=== PATIENT | female | born 1945 | race Caucasian/White ===

== ENCOUNTER 2019-08-26 15:38 | Inpatient (IN) | payer MEDICARE, MEDICAID, SELFPAY ==
--- NOTE | ~2019-08-26 | XR_ITS ---
EXAMINATION: XR chest 1V portable INDICATION: Cough and shortness of breath TECHNIQUE: Portable AP chest at 1559 hours COMPARISON: 04/27/2019 FINDINGS: There is stable cardiomegaly. There are minimal airspace opacities of the lung bases. No pl eural effusion or pneumothorax is identified. Changes of anterior fusion procedure are noted in the c ervical spine. IMPRESSION: 1. Bibasilar airspace opacities, consistent with atelectasis versus pneumonia. 2. Cardiomegaly. Reviewed, dictated and finalized at location A.
--- NOTE | 2019-08-26 15:39 | ED.GENADULT ---
HPI - General Adult General Chief complaint: Shortness of Breath/Dyspnea Stated complaint: difficulty breathing Time Seen by Provider: 08/26/19 15:38 History of Present Illness HPI narrative: Patient is a 73 y/o female complaining of SOB for about 1 week. She states that her SOB is moderate and worsened by activity. She denies any fever, cough or chest pain. She has some leg swelling. Related Data Home Medications Medication Instructions Recorded Confirmed Anoro Ellipta 1 inh INHALATION DAILY 04/27/19 04/27/19 Apriso 0.375 g PO BID 04/27/19 04/27/19 Cholestyramine Light 1 g PO DAILY 04/27/19 04/27/19 Novolog Mix 70-30FlexPen U-100 52 unit SUBCUT 1700 04/27/19 04/27/19 Novolog Mix 70-30FlexPen U-100 84 unit SUBCUT DAILY 04/27/19 04/27/19 Vitamin D2 See Rx Instructions .ROUTE .COMPLEX 04/27/19 04/27/19 Zyrtec 10 mg PO DAILY 04/27/19 04/27/19 acetaminophen 325 mg PO QID PRN 04/27/19 04/27/19 acetaminophen-codeine 1 tablet PO QID PRN 04/27/19 04/27/19 aspirin 81 mg PO DAILY 04/27/19 04/27/19 atorvastatin 40 mg PO DAILY 04/27/19 04/27/19 azathioprine 25 mg PO DAILY 04/27/19 04/27/19 carvedilol 25 mg PO Q12H 04/27/19 04/27/19 clotrimazole-betamethasone 1 applic TOPICAL BID 04/27/19 04/27/19 gabapentin 600 mg PO DAILY 04/27/19 04/27/19 levothyroxine [Synthroid] 50 mcg PO DAILY 04/27/19 04/27/19 losartan 100 mg PO DAILY 04/27/19 04/27/19 montelukast 10 mg PO DAILY 04/27/19 04/27/19 nitroglycerin 0.4 mg SUBLINGUAL Q5-15M PRN 04/27/19 04/27/19 paroxetine HCl 30 mg PO DAILY 04/27/19 04/27/19 perphenazine 2 mg PO HS 04/27/19 04/27/19 pramipexole 0.5 mg PO DAILY 04/27/19 04/27/19 tramadol 50 mg PO TID PRN 04/27/19 04/27/19 Allergies Allergy/AdvReac Type Severity Reaction Status Date / Time NSAIDS (Non-Steroidal Allergy Mild ULCERS Verified 04/27/19 16:28 Anti-Inflamma carbamazepine Allergy Unknown Unknown Verified 04/27/19 16:28 Corticosteroids Allergy Unknown Unknown Verified 04/27/19 16:28 (Glucocorticoids) Review of Systems Constitutional: Constitutional: Denies chills, Denies fever(s), Denies headache(s) and Denies weakness Eyes: Eyes: Denies blurry vision ENT: Denies headache(s) and Denies neck pain Cardiovascular: Cardiovascular: Denies chest pain and Denies dyspnea Respiratory: Respiratory: Denies cough and Reports dyspnea Gastrointestinal: Gastrointestinal: Denies abdominal pain, Denies diarrhea, Denies nausea and Denies vomiting Genitourinary: Genitourinary: Denies hematuria and Denies dysuria Musculoskeletal: Musculoskeletal: Denies back pain and Denies neck pain Neurologic: Denies headache(s) and Denies weakness [facility] Past Medical History Medical History Ankle arthritis Anxiety CAD (coronary artery disease) CHF (congestive heart failure) Colon cancer COPD (chronic obstructive pulmonary disease) Crohn's disease Diabetes Dyslipidemia History of CVA (cerebrovascular accident) Patient stated initially she had left-sided weakness but that has resolved. Hypertension Sleep apnea Surgical History Surgical History H/O heart artery stent X2 History of appendectomy History of back surgery History of cardiac catheterization History of 2 stents History of cholecystectomy History of fusion of cervical spine History of hysterectomy History of left hip replacement History of tubal ligation Family History Family History Mother Obstetrical blood-clot embolism, Father Sudden , cause unknown Sibling Acute myocardial infarction, Onset Age: 60 Social History Social History Social History: The patient lives home alone. Who lives in a senior apartment. She is retired from [employer]. She has 2 children. Her son Haroon English is her power erisa attorney. She
[2019-08-26 15:40] VITALS: BP 158/85; PULSE 64; RESP 18; TEMP 36.9; O2SAT 99
--- NOTE | 2019-08-26 15:46 | ECG_ITS ---
Measurements Intervals [place] Rate: 64 P: DC: 0 QRS: 33 QRSD: 89 T: 81 QT: 443 QTc: 459 Interpretive Statements SINUS OR ECTOPIC ATRIAL RHYTHM ATRIAL PREMATURE COMPLEX CANNOT RULE OUT SEPTAL INFARCT, AGE INDETERMINATE BORDERLINE T WAVE ABNORMALITY- LATERAL LEADS BASELINE ARTIFACT- I, II, III, AVR, AVL, AVF, V1-V6 ABNORMAL ECG Electronically Signed On 08-26-2019 18:36:31 CDT by Julien Brown D.O.
[2019-08-26] MEDS: FUROSEMIDE INJ 40 MG/4 ML VIAL IV PUSH (16:04)
[2019-08-26 16:16] LABS: Basophils Absolute Auto 0.1 K/mm3 (0.0-0.1); Basophils Percent Auto 0.6 % (0.2-1.2); Eosinophils Absolute Auto 0.2 K/mm3 (0-0.3); Eosinophils Percent Auto 1.9 % (0-4.4); Hemoglobin 13.3 g/dL (12.0-15.0); Immature Granulocyte Absolute 0.03 K/mm3 (0.00-0.031); Immature Granulocyte Percent A 0.4 % (0-0.5); Lymphocytes Absolute Auto 3.04 K/mm3 (0.9-3.2); Lymphocytes Percent Auto 36.8 % (18.3-44.2); Mean Corpuscular HGB Conc 32.4 g/dl (32-36); Mean Corpuscular Hemoglobin 32.3 pg (26-34); Mean Corpuscular Volume 99.5 fl (80-100); Mean Platelet Volume 8.9 fl (7.4-10.4); Monocytes Absolute Auto 0.9 K/mm3 (0.1-0.6); Monocytes Percent Auto 10.5 % (2.6-8.5); Neutrophils Absolute Auto 4.1 K/mm3 (1.3-6.7); Neutrophils Percent Auto 49.8 % (45.5-73.1); Platelet Count Result 194 k/mm3 (150-375); Red Blood Count 4.12 M/mm3 (4.2-5.4); Red Cell Distribution Width 12.9 % (11.5-14.5); White Blood Count 8.3 K/mm3 (4.5-10.0)
[2019-08-26 16:29] LABS: Alanine Aminotransferase 14 U/L (4-35); Albumin Level 3.8 g/dL (3.5-5.1); Alkaline Phosphatase 96 U/L (38-126); Aspartate Amino Transferase 26 U/L (14-36); Bilirubin,Total 0.4 mg/dL (0.2-1.3); Blood Urea Nitrogen 15 mg/dL (7-17); Calcium 8.9 mg/dL (8.4-10.2); Carbon Dioxide 34 mmol/L (22-30); Chloride 94 mmol/L (98-107); Estimated CRCL calculation 76 ml/min; Estimated Glomerular Filt Rate > 60; Glucose 126 mg/dL (65-105); Potassium 4.4 mmol/L (3.4-5.0); Sodium 135 mmol/L (137-145)
[2019-08-26 16:42] LABS: NT Pro B Type Natriuretic Pept 114 PG/ML (5-100); Troponin I < 0.012 ng/mL (0.000-0.034)
--- NOTE | 2019-08-26 17:50 | PC.NURSE ---
Called lab to add on d-dimer at [phone].
[2019-08-26 17:57] VITALS: BP 107/64; PULSE 69; RESP 18; O2SAT 96
[2019-08-26 18:04] LABS: D Dimer 0.39 ug/mL (<0.48)
[2019-08-26 23:04] VITALS: BP 165/91; PULSE 86; RESP 25; O2SAT 93
--- NOTE | 2019-08-26 23:24 | PC.NURSE ---
Report given to HERBERT Antonio at [phone], states he'll call back once room is cleaned.
[2019-08-27] VITALS (8 sets, daily range): BP systolic 126–150; BP diastolic 47–71; PULSE 68–95; RESP 18–28; TEMP 36.4–36.6; O2SAT 90–93; BMI 42.3
--- NOTE | 2019-08-27 00:30 | ADMGEN ---
This patient, Tom Rogers, was admitted to [facility] Surg Room 324-02. Patient/family oriented to hospital policies and general routines including ID bracelet, bed and alarms, visiting hours, pain management, procedures, bathroom and other care routines, personal items, smoking policy, room service/diet, and visiting hours. Valuables list has been completed. Information on how to activate the Rapid Response Team has been discussed. Patient/Family are encouraged to report perceived risks to care and to ask questions if they do not understand what they are told or what they should do.
--- NOTE | 2019-08-27 08:30 | PM.IMHP ---
H&P: HPI History of Present Illness Chief complaint: Increased shortness of breath Narrative: Tom Rogers is a 73 year old female with a past medical history of COPD, diastolic CHF, insulin-dependent diabetes mellitus who presented to the ER for 1 month of shortness of breath but that has become significantly worse over the last week. The patient reports that she has gained 5 lb this week and a total of 10 lb this month. She weighs herself every day. She states that her legs do not usually swell but her abdomen usually swells. She thinks her abdomen is more swollen than usual but denies her clothes being tighter than usual. She reports that she has been sleeping more for the last 3 weeks. She has been sleeping up to 18 hours at a time. She admits that her CPAP mask is about 3 weeks past time for change. She denies any cough. Her nose sounds congested. But she denies any nasal congestion she does have chronic rhinorrhea. She denies any cough, fevers or chills. She denies any ill contacts but does live at an assisted living facility. She denies any orthopnea or paroxysmal nocturnal dyspnea. Her dyspnea is worse with activity. She denies any chest pain or palpitations. She has chronic almost continuous urinary incontinence. She also reports overall rash in her right groin which for which she uses clotrimazole-betamethasone cream. That she also has a rash under her right breast that does not bother her as much as the groin rash. Review of Systems Review of Systems: Narrative: 12 systems were reviewed with pertinent positives and negatives per HPI. Except as documented in the HPI, all other systems were reviewed and are negative. [facility] Past Medical History Medical History (Updated 08/27/19 @ 09:26 by Olimpia Nichols DO) Ankle arthritis Anxiety Bipolar disorder CAD (coronary artery disease) CHF (congestive heart failure) Colon cancer COPD (chronic obstructive pulmonary disease) PFTs January 2018 demonstrating severe obstructive ventilatory defect without acute bronchodilator response mildly decreased DLCO Crohn's disease Diabetes On long-term insulin therapy of last A1c 8.07 April 2019 Diabetic peripheral neuropathy Dyslipidemia Essential hypertension History of CVA (cerebrovascular accident) 2016 patient stated initially she had left-sided weakness but that has resolved. Sleep apnea On CPAP Urinary incontinence, mixed Surgical History Surgical History (Updated 08/27/19 @ 09:24 by Olimpia Nichols DO) H/O heart artery stent X2 History of appendectomy History of back surgery History of bilateral carpal tunnel release History of bilateral cataract extraction History of bladder suspension procedure And bladder stimulator History of bowel resection Due to colon cancer 2012 History of cardiac catheterization History of 2 stents July 2016 History of cholecystectomy History of fusion of cervical spine Anterior cervical diskectomy and fusion History of hysterectomy History of left hip replacement 2009 History of tubal ligation Family History Family History (Updated 08/27/19 @ 08:47 by Olimpia Nichols DO) Mother Acute myocardial infarction Pulmonary embolism Father Acute myocardial infarction Diabetes mellitus Sibling Acute myocardial infarction, Onset Age: 60 Social History Social History (Updated 08/27/19 @ 09:06 by Olimpia Nichols DO) Social History: The patient lives at [facility]. She is retired from [employer]. She has 2 children. Her son Haroon English is her power traveling plant operator. She desires to be a full code. Primary care physician: Dr. Fraire Code status: Full code [facility] power of traveling plant operator: Fabrizio Amador Smoking packs per day: 2 Smoking cigarettes per day: 40.0 Years smoked: 45 Smoking pack-years: 90.00 Smoking status: Former smoker Tobacco type: cigarettes Alcohol intake: former Alcohol
[2019-08-27] MEDS: ASPIRIN 81 MG CHEWABLE TABLET PO (09:36)
[2019-08-27] MEDS: LEVOTHYROXINE SODIUM 50 MCG TABLET PO (09:36)
[2019-08-27] MEDS: FUROSEMIDE INJ 40 MG/4 ML VIAL IV PUSH (09:36)
[2019-08-27] MEDS: ATORVASTATIN 40 MG TABLET PO (09:37)
[2019-08-27] MEDS: GABAPENTIN 300 MG CAPSULE 600 MG PO (09:37)
[2019-08-27] MEDS: carvediloL 25 MG TABLET PO ×2 (09:37→20:56)
[2019-08-27] MEDS: LORATADINE 10 MG TABLET PO (09:37)
[2019-08-27] MEDS: MONTELUKAST SODIUM 10 MG TABLET PO (09:38)
[2019-08-27] MEDS: PRAMIPEXOLE 0.5 MG TABLET PO (09:38)
[2019-08-27] MEDS: LOSARTAN POTASSIUM 100 MG TABLET PO (09:38)
[2019-08-27] MEDS: PAROXETINE 10 MG TABLET 30 MG PO (09:38)
[2019-08-27 11:25] LABS: Glucose Point of Care 227 (65-105)
[2019-08-27] MEDS: CHOLESTYRAMINE LIGHT 4 GM POWD.PACK 1 GM PO (11:40)
[2019-08-27] MEDS: TOLNAFTATE 1% POWDER 45 GM BTL 1 APPLIC TOPICAL ×2 (11:40→20:57)
[2019-08-27] MEDS: ENOXAPARIN 40 MG/0.4 ML SYRINGE SUB-Q (11:40)
[2019-08-27] MEDS: ALBUTEROL SULFATE (*SP) AEROSOL 1 PUFF 6 PUFF INHALATION ×3 (12:03→20:49)
--- NOTE | 2019-08-27 12:31 | P.PNIM_ITS ---
Progress Note: A&P Assessment and Plan (1) Dyspnea: Qualifiers: Dyspnea type: shortness of breath Qualified Code(s): R06.02 - Shortness of breath Code(s): R06.00 - Dyspnea, unspecified Status: Acute Assessment and Plan: Multifactorial dyspnea given patients history of CHF, COPD, and MURPHY. SOB incr eases with exertion. CHF exacerbation is less likely given the patient's BNP is 114. However patient does claim to have gained 5 lb in last week and 10 lb this month. Additionally, physical deconditioning may play a role as patient spends most time in her wheelchair. * Continue IV Lasix * Continue albuterol inhaler scheduled Q4H. Will continue patient's home COPD medications. * Patient is lying completely supine. I encouraged her to sit up and elevate head of bed. * Administer oxygen prn with goal saturation 90% or above. (2) Sleep apnea: Qualifiers: Sleep apnea type: obstructive Qualified Code(s): G47.33 - Obstructive sleep apnea (adult) (pediatric) Code(s): G47.30 - Sleep apnea, unspecified Status: Chronic Assessment and Plan: The patient's CPAP has not been titrated since 2007. Given increased fatigue, this may be the biggest component causing her dyspnea. This may also be causing some increased strain on her heart. The patient's last sleep study was in 2007 at which time she needed CPAP with 12 cm of water. * Hold CPAP pending COVID test given aerosolization. * Pending negative COVID test, she will need to have CPAP mask fitted and titrated. * Respiratory therapy consult will be placed pending results. * Patient may benefit from repeat outpatient sleep study given duration of time and increased symptoms. (3) CHF (congestive heart failure): Code(s): I50.9 - Heart failure, unspecified Status: Chronic Assessment and Plan: Patient has history of CHF but does not appear to be in acute exacerbation given minor BNP elevation at 114. She is not edematous on exam. * Monitor daily weights * Continue IV Lasix * Continue low sodium diet (4) Hypertension: Code(s): I10 - Essential (primary) hypertension Status: Chronic Assessment and Plan: Blood pressure evaluated today and stable at 147/47. * Continue home carvedilol and losartan * Continue to monitor (5) Diabetes: Code(s): E11.9 - Type 2 diabetes mellitus without complications Status: Chronic Assessment and Plan: Blood sugar evaluated today and stable at 126. * Begin accu-checks, SSI, and hypoglycemia protocol * Obtain updated A1c * Continue to monitor blood glucose (6) Suspected COVID-19 virus infection: Code(s): R68.89 - Other general symptoms and signs Status: Acute Assessment and Plan: CXR reveals bibasilar airspace opacities. Given shortness of breath and cough, patient was tested for COVID-19 in the ED. She has been afebrile. WBC 8.3. * Continue isolation precautions * Await results of COVID-19 test. * Continue albuterol MDI. Avoid nebulizers and aerosolization. * Oxygen prn with goal O2 saturation 90% or above * Acetaminophen prn fever * Trend acute phase reactants * Will hold antibiotics in the interim given low suspicion of bacterial respiratory infection. (7) Maceration of skin: Code(s): L98.8 - Other specified disorders of the skin and subcutaneous tissue Status: Acute Assessment and Plan: Patient has severe maceration and erythema between folds of panniculus. * Wou
--- NOTE | 2019-08-27 12:31 | PM.IMPN ---
Progress Note: A&P Assessment and Plan (1) Dyspnea: Qualifiers: Dyspnea type: shortness of breath Qualified Code(s): R06.02 - Shortness of breath Code(s): R06.00 - Dyspnea, unspecified Status: Acute Assessment and Plan: Multifactorial dyspnea given patients history of CHF, COPD, and MURPHY. SOB increases with exertion. CHF exacerbation is less likely given the patient's BNP is 114. However patient does claim to have gained 5 lb in last week and 10 lb this month. Additionally, physical deconditioning may play a role as patient spends most time in her wheelchair. Continue IV Lasix Continue albuterol inhaler scheduled Q4H. Will continue patient's home COPD medications. Patient is lying completely supine. I encouraged her to sit up and elevate head of bed. Administer oxygen prn with goal saturation 90% or above. (2) Sleep apnea: Qualifiers: Sleep apnea type: obstructive Qualified Code(s): G47.33 - Obstructive sleep apnea (adult) (pediatric) Code(s): G47.30 - Sleep apnea, unspecified Status: Chronic Assessment and Plan: The patient's CPAP has not been titrated since 2007. Given increased fatigue, this may be the biggest component causing her dyspnea. This may also be causing some increased strain on her heart. The patient's last sleep study was in 2007 at which time she needed CPAP with 12 cm of water. Hold CPAP pending COVID test given aerosolization. Pending negative COVID test, she will need to have CPAP mask fitted and titrated. Respiratory therapy consult will be placed pending results. Patient may benefit from repeat outpatient sleep study given duration of time and increased symptoms. (3) CHF (congestive heart failure): Code(s): I50.9 - Heart failure, unspecified Status: Chronic Assessment and Plan: Patient has history of CHF but does not appear to be in acute exacerbation given minor BNP elevation at 114. She is not edematous on exam. Monitor daily weights Continue IV Lasix Continue low sodium diet (4) Hypertension: Code(s): I10 - Essential (primary) hypertension Status: Chronic Assessment and Plan: Blood pressure evaluated today and stable at 147/47. Continue home carvedilol and losartan Continue to monitor (5) Diabetes: Code(s): E11.9 - Type 2 diabetes mellitus without complications Status: Chronic Assessment and Plan: Blood sugar evaluated today and stable at 126. Begin accu-checks, SSI, and hypoglycemia protocol Obtain updated A1c Continue to monitor blood glucose (6) Suspected COVID-19 virus infection: Code(s): R68.89 - Other general symptoms and signs Status: Acute Assessment and Plan: CXR reveals bibasilar airspace opacities. Given shortness of breath and cough, patient was tested for COVID-19 in the ED. She has been afebrile. WBC 8.3. Continue isolation precautions Await results of COVID-19 test. Continue albuterol MDI. Avoid nebulizers and aerosolization. Oxygen prn with goal O2 saturation 90% or above Acetaminophen prn fever Trend acute phase reactants Will hold antibiotics in the interim given low suspicion of bacterial respiratory infection. (7) Maceration of skin: Code(s): L98.8 - Other specified disorders of the skin and subcutaneous tissue Status: Acute Assessment and Plan: Patient has severe maceration and erythema between folds of panniculus. Wound care consult obtained Continue antifungal creams Moisture wicking recommended (8) Nasal congestion: Code(s): R09.81 - Nasal congestion Status: Acute Assessment and Plan: Continue loratidine [place] nasal spray prn Subjective Date/time seen: 08/27/19 12:31 Interval history: Date of service: 08/27/19 Ms. Rogers is seen today and reports she is feeling short of breath. She notes that turning or m
[2019-08-27 13:38] LABS: Glucose Point of Care 67 (65-105)
[2019-08-27 15:10] LABS: SARS-CoV-2 RNA PCR Negative
[2019-08-27 15:53] LABS: Glucose Point of Care 100 (65-105)
[2019-08-27 18:02] LABS: Glucose Point of Care 101 (65-105)
[2019-08-27] MEDS: PERPHENAZINE 2 MG TABLET PO (20:56)
[2019-08-27] MEDS: FAMOTIDINE 20 MG/2 ML VIAL IV PUSH (20:57)
[2019-08-27 22:34] LABS: Glucose Point of Care 158 (65-105)
[2019-08-28] VITALS (8 sets, daily range): BP systolic 96–142; BP diastolic 40–56; PULSE 58–77; RESP 16–22; TEMP 36.4–36.6; O2SAT 90–94
[2019-08-28] MEDS: LEVOTHYROXINE SODIUM 50 MCG TABLET PO (06:45)
[2019-08-28 06:53] LABS: Basophils Absolute Auto 0.1 K/mm3 (0.0-0.1); Basophils Percent Auto 0.6 % (0.2-1.2); Eosinophils Absolute Auto 0.3 K/mm3 (0-0.3); Eosinophils Percent Auto 3.5 % (0-4.4); Hematocrit 42.9 % (37.0-47.0); Hemoglobin 14.1 g/dL (12.0-15.0); Immature Granulocyte Absolute 0.03 K/mm3 (0.00-0.031); Immature Granulocyte Percent A 0.4 % (0-0.5); Immature Platelet Fraction Pct 3.2 % (0.9-11.2); Lymphocytes Absolute Auto 2.65 K/mm3 (0.9-3.2); Lymphocytes Percent Auto 32.3 % (18.3-44.2); Mean Corpuscular HGB Conc 32.9 g/dl (32-36); Mean Corpuscular Hemoglobin 32.3 pg (26-34); Mean Corpuscular Volume 98.4 fl (80-100); Mean Platelet Volume 9.2 fl (7.4-10.4); Monocytes Percent Auto 11.6 % (2.6-8.5); Neutrophils Absolute Auto 4.2 K/mm3 (1.3-6.7); Neutrophils Percent Auto 51.6 % (45.5-73.1); Platelet Count Result 202 k/mm3 (150-375); Red Blood Count 4.36 M/mm3 (4.2-5.4); White Blood Count 8.2 K/mm3 (4.5-10.0)
[2019-08-28 06:55] LABS: Hemoglobin A1C 7.2 % (<5.7)
[2019-08-28 07:04] LABS: Alanine Aminotransferase 13 U/L (4-35); Albumin Level 3.7 g/dL (3.5-5.1); Alkaline Phosphatase 97 U/L (38-126); Aspartate Amino Transferase 23 U/L (14-36); Bilirubin,Total 0.9 mg/dL (0.2-1.3); Blood Urea Nitrogen 17 mg/dL (7-17); CRP 2.6 mg/dL (<1.0); Calcium 8.6 mg/dL (8.4-10.2); Carbon Dioxide 35 mmol/L (22-30); Chloride 93 mmol/L (98-107); Creatine Kinase 43 U/L (30-135); Estimated CRCL calculation 53 ml/min; Estimated Glomerular Filt Rate 49; Glucose 152 mg/dL (65-105); Lactate Dehydrogenase 286 U/L (313-618); Potassium 3.6 mmol/L (3.4-5.0); Sodium 132 mmol/L (137-145)
[2019-08-28 08:44] LABS: Glucose Point of Care 186 (65-105)
[2019-08-28] MEDS: CHOLESTYRAMINE LIGHT 4 GM POWD.PACK 1 GM PO (08:47)
[2019-08-28] MEDS: FUROSEMIDE INJ 40 MG/4 ML VIAL IV PUSH (08:47)
[2019-08-28] MEDS: PRAMIPEXOLE 0.5 MG TABLET PO (08:47)
[2019-08-28] MEDS: GABAPENTIN 300 MG CAPSULE 600 MG PO (08:47)
[2019-08-28] MEDS: ENOXAPARIN 40 MG/0.4 ML SYRINGE SUB-Q (08:47)
[2019-08-28] MEDS: FAMOTIDINE 20 MG/2 ML VIAL IV PUSH ×2 (08:47→20:22)
[2019-08-28] MEDS: carvediloL 25 MG TABLET PO ×2 (08:48→20:14)
[2019-08-28] MEDS: PAROXETINE 10 MG TABLET 30 MG PO (08:48)
[2019-08-28] MEDS: LOSARTAN POTASSIUM 100 MG TABLET PO (08:48)
[2019-08-28] MEDS: ATORVASTATIN 40 MG TABLET PO (08:48)
[2019-08-28] MEDS: MONTELUKAST SODIUM 10 MG TABLET PO (08:48)
[2019-08-28] MEDS: ASPIRIN 81 MG CHEWABLE TABLET PO (08:48)
[2019-08-28] MEDS: LORATADINE 10 MG TABLET PO (08:49)
[2019-08-28] MEDS: TOLNAFTATE 1% POWDER 45 GM BTL 1 APPLIC TOPICAL ×2 (08:49→20:22)
[2019-08-28] MEDS: ALBUTEROL SULFATE (*SP) AEROSOL 1 PUFF 6 PUFF INHALATION ×4 (08:52→20:44)
[2019-08-28 12:16] LABS: Glucose Point of Care 236 (65-105)
[2019-08-28] MEDS: INSULIN ASPART (*BKC) 100 UNITS/ML SUB-Q (12:20)
--- NOTE | 2019-08-28 16:16 | PM.IMPN ---
Progress Note: A&P Assessment and Plan (1) Dyspnea: Qualifiers: Dyspnea type: shortness of breath Qualified Code(s): R06.02 - Shortness of breath Code(s): R06.00 - Dyspnea, unspecified Status: Acute Assessment and Plan: Likely multifactorial dyspnea given patients history of CHF, COPD, MURPHY, or possible pneumonia given CXR with possible atelectasis vs pneumonia. CHF exacerbation is less likely given the patient's BNP is 114. However patient does claim to have gained 5 lb in last week and 10 lb this month. Additionally, physical deconditioning may play a role as patient spends most time in her wheelchair. Slight wheezing on exam. BC negative to date. COVID testing negative. afebrile since admission. VSS Patient is lying completely supine again today I encouraged her to sit up and elevate head of bed. One dose of Rocephin given, but discontinued as pneumonia is felt to be unlikely; will due ur antigens today Switch to PO Lasix Continue albuterol inhaler scheduled Q4H. Will continue patient's home COPD medications. Administer oxygen prn with goal saturation 90% or above. (2) Sleep apnea: Qualifiers: Sleep apnea type: obstructive Qualified Code(s): G47.33 - Obstructive sleep apnea (adult) (pediatric) Code(s): G47.30 - Sleep apnea, unspecified Status: Chronic Assessment and Plan: The patient's CPAP has not been titrated since 2007. Given increased fatigue, this may be the biggest component causing her dyspnea. This may also be causing some increased strain on her heart. The patient's last sleep study was in 2007 at which time she needed CPAP with 12 cm of water. Will start CPAP as COVID test negative Respiratory therapy placed for titration Patient may benefit from repeat outpatient sleep study given duration of time and increased symptoms. (3) CHF (congestive heart failure): Code(s): I50.9 - Heart failure, unspecified Status: Chronic Assessment and Plan: Patient has history of CHF but does not appear to be in acute exacerbation given minor BNP elevation at 114. She is not edematous on exam. Monitor daily weights Switch to PO Lasix Continue low sodium/diabetic diet (4) Hypertension: Code(s): I10 - Essential (primary) hypertension Status: Chronic Assessment and Plan: Blood pressure evaluated today and stable at 140s sys Continue home carvedilol and losartan Continue to monitor (5) Diabetes: Code(s): E11.9 - Type 2 diabetes mellitus without complications Status: Chronic Assessment and Plan: Blood sugar today in mid 100s-low 200s. A1c 7.2 Continue accu-checks, SSI, and hypoglycemia protocol Diabetic/low sodium diet Monitor (6) Suspected COVID-19 virus infection: Code(s): R68.89 - Other general symptoms and signs Status: Resolved Assessment and Plan: CXR on arrival revealed bibasilar airspace opacities. Given shortness of breath and cough, patient was tested for COVID-19 in the ED. This was negative. She has been afebrile. WBC 8.2k. (7) Maceration of skin: Code(s): L98.8 - Other specified disorders of the skin and subcutaneous tissue Status: Acute Assessment and Plan: Patient has severe maceration and erythema between folds of panniculus. Wound care consult obtained Continue antifungal creams Moisture wicking recommended (8) Nasal congestion: Code(s): R09.81 - Nasal congestion Status: Acute Assessment and Plan: Continue loratidine [place] nasal spray prn Subjective Date/time seen: 08/28/19 16:16 Interval history:
[2019-08-28 18:15] LABS: Glucose Point of Care 101 (65-105)
[2019-08-28] MEDS: PERPHENAZINE 2 MG TABLET PO (20:22)
[2019-08-28 20:58] LABS: Glucose Point of Care 138 (65-105)
[2019-08-29] VITALS (8 sets, daily range): BP systolic 97–124; BP diastolic 50–61; PULSE 53–80; RESP 16–22; TEMP 36.4–36.9; O2SAT 90–96
[2019-08-29] MEDS: LEVOTHYROXINE SODIUM 50 MCG TABLET PO (05:38)
[2019-08-29 06:05] LABS: Hematocrit 43.6 % (37.0-47.0); Mean Corpuscular HGB Conc 32.1 g/dl (32-36); Mean Corpuscular Hemoglobin 32.6 pg (26-34); Mean Corpuscular Volume 101.4 fl (80-100); Platelet Count Result 217 k/mm3 (150-375); Red Cell Distribution Width 13.2 % (11.5-14.5); White Blood Count 9.1 K/mm3 (4.5-10.0)
[2019-08-29 06:32] LABS: Blood Urea Nitrogen 28 mg/dL (7-17); Calcium 8.9 mg/dL (8.4-10.2); Carbon Dioxide 35 mmol/L (22-30); Chloride 93 mmol/L (98-107); Estimated CRCL calculation 31 ml/min; Estimated Glomerular Filt Rate 26; Glucose 100 mg/dL (65-105); Magnesium 2.1 mg/dL (1.6-2.3); Potassium 3.8 mmol/L (3.4-5.0); Sodium 134 mmol/L (137-145)
[2019-08-29] MEDS: ALBUTEROL SULFATE (*SP) AEROSOL 1 PUFF 6 PUFF INHALATION ×4 (07:54→19:33)
[2019-08-29 08:04] LABS: Glucose Point of Care 79 (65-105)
[2019-08-29] MEDS: GABAPENTIN 300 MG CAPSULE 600 MG PO (08:40)
[2019-08-29] MEDS: MONTELUKAST SODIUM 10 MG TABLET PO (08:41)
[2019-08-29] MEDS: PAROXETINE 10 MG TABLET 30 MG PO (08:41)
[2019-08-29] MEDS: ASPIRIN 81 MG CHEWABLE TABLET PO (08:42)
[2019-08-29] MEDS: FAMOTIDINE 20 MG/2 ML VIAL IV PUSH ×2 (08:43→20:39)
[2019-08-29] MEDS: LORATADINE 10 MG TABLET PO (08:43)
[2019-08-29] MEDS: ENOXAPARIN 40 MG/0.4 ML SYRINGE SUB-Q (08:43)
[2019-08-29] MEDS: SALINE 0.65% NAS SOLN 44 ML BTL 1 SPRAY NASAL (08:43)
[2019-08-29] MEDS: CHOLESTYRAMINE LIGHT 4 GM POWD.PACK 1 GM PO (08:44)
[2019-08-29] MEDS: TOLNAFTATE 1% POWDER 45 GM BTL 1 APPLIC TOPICAL ×2 (08:53→20:39)
[2019-08-29] MEDS: PRAMIPEXOLE 0.5 MG TABLET PO (09:06)
--- NOTE | 2019-08-29 10:35 | PM.IMPN ---
Progress Note: A&P Assessment and Plan (1) Dyspnea: Qualifiers: Dyspnea type: shortness of breath Qualified Code(s): R06.02 - Shortness of breath Code(s): R06.00 - Dyspnea, unspecified Status: Acute Assessment and Plan: Likely multifactorial dyspnea given patients history of CHF, COPD, MURPHY, or possible pneumonia given CXR with possible atelectasis vs pneumonia. CHF exacerbation is less likely given the patient's BNP is 114 on arrival. However patient did claim to have gained 5 lb in last week and 10 lb this month. Additionally, physical deconditioning may play a role as patient spends most time in her wheelchair. Slight wheezing on exam again today. BC negative to date. COVID testing negative. afebrile since admission. VSS. Patient appears to have clinically improved today, and feeling much better Encourage OOB for meals/as tolearted Encourage One dose of Rocephin given, but discontinued as pneumonia is felt to be unlikely; Ur antigens pending Held PO lasix as Cr increased overnight Continue albuterol inhaler scheduled Q4H. Patient declines neb treatments and she is allergic to corticosteroids. Will continue patient's home COPD medications. Administer oxygen prn with goal saturation 90% or above. (2) YOBANY (acute kidney injury): Code(s): N17.9 - Acute kidney failure, unspecified Status: Acute Assessment and Plan: Cr increased to 1.90 today. Possible overuse of IV lasix/dehydration. Due to CHF and risk of volume overload, will encourage PO intake for now and hold nephrotoxic agents including lasix Will do BMP this afternoon and tomorrow morning If showing improvement, trending down, will likely discharge back to facility in 1-2 days Should this not improve, consider renal ultrasound and possible Nephrology consultation monitor closely (3) Sleep apnea: Qualifiers: Sleep apnea type: obstructive Qualified Code(s): G47.33 - Obstructive sleep apnea (adult) (pediatric) Code(s): G47.30 - Sleep apnea, unspecified Status: Chronic Assessment and Plan: The patient's CPAP has not been titrated since 2007. Given increased fatigue, this may be the biggest component causing her dyspnea. This may also be causing some increased strain on her heart. The patient's last sleep study was in 2007 at which time she needed CPAP with 12 cm of water. Patient was fitted last night and slept well overnight with machine; feeling much better today Will start CPAP as COVID test negative Respiratory therapy following Patient may benefit from repeat outpatient sleep study given duration of time and increased symptoms. Continue CPAP after discharge (4) CHF (congestive heart failure): Code(s): I50.9 - Heart failure, unspecified Status: Chronic Assessment and Plan: Patient has history of CHF but does not appear to be in acute exacerbation given minor BNP elevation at 114. She is not edematous on exam. Monitor daily weights Hold lasix today due to elevated Cr Continue low sodium/diabetic diet (5) Hypertension: Code(s): I10 - Essential (primary) hypertension Status: Chronic Assessment and Plan: Blood pressure evaluated today and soft at 90s sys Carvedilol held this morning due to low HR and soft BP; losartan held due to YOBANY Continue home carvedilol tonight; hold losartan for now Continue to monitor (6) Diabetes: Code(s): E11.9 - Type 2 diabetes mellitus without complications Status: Chronic Assessment and Plan: Blood sugar today in mid 100s-low 200s. A1c 7.2 Home insulin dose held this morning as sugars in 70s; follow closely Continue accu-checks, SSI, and hypoglycemia protocol Diabetic/low sodium diet Monitor ___
[2019-08-29] MEDS: INSULIN ASPART (*BKC) 100 UNITS/ML SUB-Q (11:46)
[2019-08-29 12:21] LABS: Glucose Point of Care 206 (65-105)
[2019-08-29 15:15] LABS: Blood Urea Nitrogen 32 mg/dL (7-17); Calcium 8.3 mg/dL (8.4-10.2); Carbon Dioxide 33 mmol/L (22-30); Chloride 88 mmol/L (98-107); Estimated CRCL calculation 31 ml/min; Estimated Glomerular Filt Rate 26; Glucose 219 mg/dL (65-105); Potassium 3.9 mmol/L (3.4-5.0); Sodium 130 mmol/L (137-145)
[2019-08-29 17:15] LABS: Glucose Point of Care 185 (65-105)
[2019-08-29] MEDS: carvediloL 25 MG TABLET PO (20:38)
[2019-08-29] MEDS: PERPHENAZINE 2 MG TABLET PO (20:38)
[2019-08-29 21:44] LABS: Glucose Point of Care 167 (65-105)
[2019-08-30 02:00] VITALS: BP 139/50; PULSE 64; RESP 20; TEMP 36.2; O2SAT 93
[2019-08-30 02:38] VITALS: PULSE 62; RESP 18; O2SAT 94
[2019-08-30] MEDS: LEVOTHYROXINE SODIUM 50 MCG TABLET PO (06:17)
[2019-08-30 06:37] VITALS: BP 133/53; PULSE 56; RESP 22; TEMP 36.5; O2SAT 94
[2019-08-30 06:42] LABS: Glucose Point of Care 118 (65-105)
[2019-08-30 07:07] LABS: Blood Urea Nitrogen 35 mg/dL (7-17); Calcium 8.4 mg/dL (8.4-10.2); Carbon Dioxide 36 mmol/L (22-30); Chloride 91 mmol/L (98-107); Estimated CRCL calculation 45 ml/min; Estimated Glomerular Filt Rate 40; Glucose 113 mg/dL (65-105); Magnesium 2.1 mg/dL (1.6-2.3); Sodium 132 mmol/L (137-145)
[2019-08-30 08:48] VITALS: O2SAT 93
[2019-08-30] MEDS: GABAPENTIN 300 MG CAPSULE 600 MG PO (09:17)
[2019-08-30] MEDS: SALINE 0.65% NAS SOLN 44 ML BTL 1 SPRAY NASAL (09:17)
[2019-08-30] MEDS: ASPIRIN 81 MG CHEWABLE TABLET PO (09:17)
[2019-08-30 09:18] VITALS: PULSE 72
[2019-08-30] MEDS: MONTELUKAST SODIUM 10 MG TABLET PO (09:18)
[2019-08-30] MEDS: PAROXETINE 10 MG TABLET 30 MG PO (09:18)
[2019-08-30] MEDS: carvediloL 25 MG TABLET PO (09:18)
[2019-08-30] MEDS: PRAMIPEXOLE 0.5 MG TABLET PO (09:20)
[2019-08-30] MEDS: LORATADINE 10 MG TABLET PO (09:20)
[2019-08-30] MEDS: FAMOTIDINE 20 MG/2 ML VIAL IV PUSH (09:21)
[2019-08-30] MEDS: ENOXAPARIN 40 MG/0.4 ML SYRINGE SUB-Q (09:21)
[2019-08-30] MEDS: TOLNAFTATE 1% POWDER 45 GM BTL 1 APPLIC TOPICAL (09:21)
[2019-08-30 09:44] LABS: Glucose Point of Care 104 (65-105)
[2019-08-30 10:00] VITALS: BP 130/50; PULSE 65; RESP 20; TEMP 36.6; O2SAT 95
--- NOTE | 2019-08-30 10:40 | PM.DS ---
DS: Diagnosis Admitting Diagnosis Admitting Diagnosis: Dyspnea, unspecified Discharge Diagnosis (1) Dyspnea: Qualifiers: Dyspnea type: shortness of breath Qualified Code(s): R06.02 - Shortness of breath Code(s): R06.00 - Dyspnea, unspecified Status: Acute Assessment and Plan: Likely multifactorial dyspnea given patients history of CHF, COPD, MURPHY, or possible pneumonia given CXR with possible atelectasis vs pneumonia. CHF exacerbation is less likely given the patient's BNP is 114 on arrival. However patient did claim to have gained 5 lb in last week and 10 lb this month. Additionally, physical deconditioning may play a role as patient spends most time in her wheelchair. Lung exam today was relatively benign; no wheezing noted. BC negative to date. COVID testing negative. afebrile since admission. VSS. Patient appears to have clinically improved again today, and feeling much better Encouraged OOB for meals/as tolearted One dose of Rocephin given, but discontinued as pneumonia is felt to be unlikely; Ur antigens pending Will resume lasix after discharge Will continue patient's home COPD medications. Administer oxygen prn with goal saturation 90% or above. (2) YOBANY (acute kidney injury): Code(s): N17.9 - Acute kidney failure, unspecified Status: Acute Assessment and Plan: Cr decreased to 1.30 today; improvement. Possible injury due to use of IV lasix/dehydration. Due to CHF and risk of volume overload, will encourage PO intake for now and resume lasix after discharge Will do BMP next week Discharge today back to assisted living (3) Sleep apnea: Qualifiers: Sleep apnea type: obstructive Qualified Code(s): G47.33 - Obstructive sleep apnea (adult) (pediatric) Code(s): G47.30 - Sleep apnea, unspecified Status: Chronic Assessment and Plan: Patient stated she follows a Pulmonlogist. Will resume CPAP at home and follow up with [employer] and see if she needs another sleep study or adjustments to CPAP Respiratory therapy following Continue CPAP after discharge (4) CHF (congestive heart failure): Code(s): I50.9 - Heart failure, unspecified Status: Chronic Assessment and Plan: Patient has history of CHF but does not appear to be in acute exacerbation given minor BNP elevation at 114. She is not edematous on exam. Likely resume lasix 1-2 days after discharge Continue low sodium/diabetic diet (5) Hypertension: Code(s): I10 - Essential (primary) hypertension Status: Chronic Assessment and Plan: Blood pressure 130s sys Continue Carvedilol and losartan after discharge. Continue to monitor (6) Diabetes: Code(s): E11.9 - Type 2 diabetes mellitus without complications Status: Chronic Assessment and Plan: Blood sugar today in low 100s. A1c 7.2 Continue home regimen after discharge accu-checks, SSI, and hypoglycemia protocol during stay Diabetic/low sodium diet Monitor (7) Suspected COVID-19 virus infection: Code(s): R68.89 - Other general symptoms and signs Status: Ruled-out Assessment and Plan: CXR on arrival revealed bibasilar airspace opacities. Given shortness of breath and cough, patient was tested for COVID-19 in the ED. This was negative. She has been afebrile. WBC 9.1k. (8) Maceration of skin: Code(s): L98.8 - Other specified disorders of the skin and subcutaneous tissue Status: Acute Assessment and Plan: Patient has severe maceration and erythema between folds of panniculus. Wound care followed Continue antifungal creams Moisture wicking recommended
[2019-08-30 12:08] LABS: Glucose Point of Care 100 (65-105)
[2019-08-30] MEDS: CHOLESTYRAMINE LIGHT 4 GM POWD.PACK 1 GM PO (12:50)
[2019-08-31 13:57] LABS: Pneumococcal Antigen Urine Not Detected (Not Detected)
[2019-09-01 18:47] LABS: Legionella pneumophila Ag Ur Not Detected (Not Detected)
== END 2019-08-30 14:20 | DRG 155 ==
LOC: ANHED 22:43 → ANH3MEDSUR 23:02
PROVIDERS: Physician Assistant; Admitting Provider Internal Medicine; Emergency Provider Emergency Medicine; PCP Internal Medicine; Visit Provider Hospitalist
DX: G47.33 Obstructive sleep apnea (adult) (pediatric) (principal); K50.90 Crohn's disease, unspecified, without complications; N17.9 Acute kidney failure, unspecified; I50.32 Chronic diastolic (congestive) heart failure; J98.11 Atelectasis; I69.354 Hemiplegia and hemiparesis following cerebral infarction affecting left non-dominant side; Z68.41 Body mass index [BMI] 40.0-44.9, adult; R06.00 Dyspnea, unspecified; Z20.828 Contact with and (suspected) exposure to other viral communicable diseases; I11.0 Hypertensive heart disease with heart failure; J44.9 Chronic obstructive pulmonary disease, unspecified; I25.10 Atherosclerotic heart disease of native coronary artery without angina pectoris; R09.81 Nasal congestion; L98.8 Other specified disorders of the skin and subcutaneous tissue; E11.9 Type 2 diabetes mellitus without complications; E86.0 Dehydration; F41.9 Anxiety disorder, unspecified; F31.9 Bipolar disorder, unspecified; E78.5 Hyperlipidemia, unspecified; M19.079 Primary osteoarthritis, unspecified ankle and foot; N39.46 Mixed incontinence; Z96.642 Presence of left artificial hip joint; Z85.038 Personal history of other malignant neoplasm of large intestine; Z95.5 Presence of coronary angioplasty implant and graft; Z90.49 Acquired absence of other specified parts of digestive tract; Z98.1 Arthrodesis status; Z90.710 Acquired absence of both cervix and uterus; Z87.891 Personal history of nicotine dependence; E66.01 Morbid (severe) obesity due to excess calories
CPT/HCPCS: 36415; 71045; 80048; 80053; 82550; 82728; 83036; 83615; 83735; 83880; 84484; 85025; 85027; 85055; 85380; 86140; 87040; 87449; 87635; 87899; 93005; 94640; 96365; 96375; 97116; 97162; 97165; 97530; 99285; A9270; G0378; J0456; J0696; J1650; J1815; J1940; U0003

== ENCOUNTER 2019-09-06 09:36 | Outpatient (CLI) | payer MEDICARE, MEDICAID, SELFPAY ==
[2019-09-06 10:09] LABS: Blood Urea Nitrogen 12 mg/dL (7-17); Calcium 9.1 mg/dL (8.4-10.2); Carbon Dioxide 34 mmol/L (22-30); Chloride 100 mmol/L (98-107); Estimated Glomerular Filt Rate > 60; Glucose 137 mg/dL (65-105); Potassium 4.3 mmol/L (3.4-5.0); Sodium 136 mmol/L (137-145)
== END 2019-09-06 09:37 | disposition home or self-care (01) ==
PROVIDERS: PCP Internal Medicine; Visit Provider Physician Assistant
DX: N17.9 Acute kidney failure, unspecified (principal)
CPT/HCPCS: 36415; 80048

== ENCOUNTER 2020-03-09 19:44 | Inpatient (IN) | payer MEDICARE, MEDICAID, SELFPAY ==
[2020-03-09] VITALS (8 sets, daily range): BP systolic 143–155; BP diastolic 68–76; PULSE 70–88; RESP 18–38; TEMP 36.3–36.7; O2SAT 97–100; BMI 45.5
--- NOTE | ~2020-03-09 | XR_ITS ---
EXAMINATION: XR chest 2V DATE: 03/11/2020 10:29 INDICATION: Acute respiratory failure, wheezing and rhonchi TECHNIQUE: AP and lateral views of the chest are obtained. COMPARISON: 03/09/2020 FINDINGS: Bibasilar airspace opacities persist without significant change. There are small pleural ef fusions. No pneumothorax is identified. The heart size is normal for technique. There are surgical ch anges in the lower cervical spine. One of the screws at the top end of the plate is chronically parti ally backed out. IMPRESSION: 1. Small pleural effusions. 2. Stable bibasilar airspace opacities, consistent with atelectasis versus pneumonia. Reviewed, dictated and finalized at location A. SETTER IMPRESSION: 1. Small pleural effusions. 2. Stable bibasilar airspace opacities, consistent with atelectasis versus pneu monia.
--- NOTE | ~2020-03-09 | XR_ITS ---
EXAMINATION: XR chest 1V portable DATE: 03/09/2020 20:39 INDICATION: Dyspnea. TECHNIQUE: A single frontal view of the chest was obtained. COMPARISON: Chest single view 08/26/19, chest CT 06/26/2018 FINDINGS: Sensitivity is decreased by obesity. There are mild airspace opacities in the mid and lower lung zones. No pleural effusion or pneumothorax. The heart size is normal. There are changes of ante rior fusion procedure in cervical spine. IMPRESSION: 1. Mild airspace opacities in the mid and lower lung zones, consistent with atelectasis versus pneumo antonio. Reviewed, dictated and finalized at location A. GER STORY IMPRESSION: 1. Mild airspace opacities in the mid and lower lung zones, consistent with ate lectasis versus pneumonia.
--- NOTE | 2020-03-09 19:50 | ED.SOB ---
HPI - SOB/Dyspnea General Chief Complaint: Shortness of Breath/Dyspnea Stated Complaint: sob Time Seen by Provider: 03/09/20 19:50 Source: patient and EMS Mode of arrival: EMS History of Present Illness HPI Narrative: Patient is a 74-year-old female with a history of COPD, CHF, diabetes, obstructive sleep apnea, hypertension, recurrent pneumonia who presents via ambulance from [facility] for evaluation of shortness of breath. Patient states she has been wheezing throughout the day today. Wheezing initially started this morning. Patient states she did not feel that her initial morning medication or inhaler treatments were effective. Patient with worsening shortness of breath and productive cough throughout the day. She denies any chest pain. She reports stable, mild lower leg swelling without calf pain. No pain with deep inspiration. She denies fever or chills. She states she recently had a negative Covid swab two days ago, the facility she resides is regularly testing. Patient states symptoms feel similar to COPD exacerbation. Pt is not on any oxygen at her facility, she does use a CPAP at night. Related Data Home Medications Medication Instructions Recorded Confirmed Anoro Ellipta 1 inh INHALATION DAILY 04/27/19 08/27/19 Cholestyramine Light 1 g PO DAILY 04/27/19 08/27/19 acetaminophen 325 mg PO QID PRN 04/27/19 08/27/19 aspirin 81 mg PO DAILY 04/27/19 08/27/19 atorvastatin 40 mg PO DAILY 04/27/19 08/27/19 azathioprine 25 mg PO DAILY 04/27/19 08/27/19 carvedilol 25 mg PO Q12H 04/27/19 08/27/19 clotrimazole-betamethasone 1 applic TOPICAL BID 04/27/19 08/27/19 gabapentin 600 mg PO DAILY 04/27/19 08/27/19 insulin asp prt-insulin aspart 52 unit SUBCUT 1700 04/27/19 08/27/19 [Novolog Mix 70-30FlexPen U-100] insulin asp prt-insulin aspart 84 unit SUBCUT DAILY 04/27/19 08/27/19 [Novolog Mix 70-30FlexPen U-100] levothyroxine [Synthroid] 50 mcg PO DAILY 04/27/19 08/27/19 losartan 100 mg PO DAILY 04/27/19 08/27/19 mesalamine [Apriso] 0.375 g PO BID 04/27/19 08/27/19 montelukast 10 mg PO DAILY 04/27/19 08/27/19 nitroglycerin 0.4 mg SUBLINGUAL Q5-15M PRN 04/27/19 08/27/19 paroxetine HCl 30 mg PO DAILY 04/27/19 08/27/19 perphenazine 2 mg PO HS 04/27/19 08/27/19 pramipexole 0.5 mg PO DAILY 04/27/19 08/27/19 tramadol 50 mg PO TID PRN 04/27/19 08/27/19 cetirizine 10 mg PO DAILY 08/27/19 08/27/19 ergocalciferol (vitamin D2) 1,250 mcg PO 2XW 08/27/19 08/27/19 [Vitamin D2] Allergies Allergy/AdvReac Type Severity Reaction Status Date / Time NSAIDS (Non-Steroidal Allergy Mild ULCERS Verified 03/09/20 19:52 Anti-Inflamma carbamazepine Allergy Unknown Unknown Verified 03/09/20 19:52 Review of Systems Review of Systems: Narrative: CONSTITUTIONAL: Denies fever, chills EYES: Denies visual changes ENT: Denies rhinorrhea, congestion, sore throat, or otalgia. CARDIOVASCULAR: Denies chest pain, palpitations, reports chronic lower leg swelling RESPIRATORY: Reports cough, shortness of breath and wheezing GASTROINTESTINAL: Denies abdominal pain, nausea, vomiting, or diarrhea. GENITOURINARY: Denies dysuria or hematuria. SKIN: Denies rash or itching. MUSCULOSKELETAL: Denies back pain, joint pain, or myalgia. NEUROLOGIC: Denies headache, numbness, or weakness. [facility] Past Medical History Medical History Ankle arthritis Anxiety Bipolar disorder CAD (coronary artery disease) CHF (congestive heart failure) Colon cancer COPD (chronic obstructive pulmonary disease) PFTs January 2018 demonstrating severe obstructive ventilatory defect without acute bronchodilator response mildly decreased DLCO Crohn's disease Diabetes On long-term insulin therapy of last A1c 8.07 April 2019 Diabetic peripheral neuropathy Dyslipidemia Essential hypertension History of CVA (cerebrovascular accident) 2016 patient stated initially she had left-sided weakness but that has resolved. Sleep apnea
--- NOTE | 2020-03-09 19:51 | ECG_ITS ---
Measurements Intervals [place] Rate: 70 P: 132 W[place]: 359 QRS: 17 QRSD: 93 T: 110 QT: 387 QTc: 419 Interpretive Statements SINUS OR ECTOPIC ATRIAL RHYTHM BORDERLINE ST-T WAVE ABNORMALITY- INF/HIGH LAT LEADS BASELINE ARTIFACT- I, II, III, AVR, AVL, AVF, V1-V6 BORDERLINE ECG Electronically Signed On 03-10-2020 6:56:17 QUALITY MEASUREMENT SPECIALIST by Julien Brown D.O.
[2020-03-09 20:09] LABS: Basophils Percent Auto 0.4 % (0.2-1.2); Eosinophils Absolute Auto 0.3 K/mm3 (0-0.3); Eosinophils Percent Auto 2.4 % (0-4.4); Hematocrit 44.7 % (37.0-47.0); Hemoglobin 14.9 g/dL (12.0-15.0); Immature Granulocyte Absolute 0.03 K/mm3 (0.00-0.031); Immature Granulocyte Percent A 0.3 % (0-0.5); Lymphocytes Absolute Auto 3.12 K/mm3 (0.9-3.2); Lymphocytes Percent Auto 30.1 % (18.3-44.2); Mean Corpuscular HGB Conc 33.3 g/dl (32-36); Mean Corpuscular Hemoglobin 31.9 pg (26-34); Mean Corpuscular Volume 95.7 fl (80-100); Mean Platelet Volume 8.4 fl (7.4-10.4); Monocytes Absolute Auto 0.8 K/mm3 (0.1-0.6); Monocytes Percent Auto 7.4 % (2.6-8.5); Neutrophils Absolute Auto 6.2 K/mm3 (1.3-6.7); Neutrophils Percent Auto 59.4 % (45.5-73.1); Platelet Count Result 181 k/mm3 (150-375); Red Blood Count 4.67 M/mm3 (4.2-5.4); Red Cell Distribution Width 12.9 % (11.5-14.5); White Blood Count 10.4 K/mm3 (4.5-10.0)
[2020-03-09] MEDS: ALBUTEROL SULFATE NEB 2.5 MG/0.5 ML INH 5 MG INHALATION (20:11)
[2020-03-09] MEDS: IPRATROPIUM BR 0.02% INH SOLN 0.5 MG/2.5 ML VIAL INHALATION (20:11)
[2020-03-09 20:13] LABS: Fractional Inspired Oxygen 21 %; HCO3 ABG 32.3 mEq/l (22.0-26.0); Oxygen Content ABG 19.1 %vol (16.0-22.0); Oxygen Saturation ABG 90.4 % (95.0-100.0); Oxyhemoglobin 89.3 % THb (90.0-100.0); PO2 ABG 59.3 mmHg (80.0-100.0); PO2 FiO2 Ratio Arterial Blood 2.82 %; Total Hemoglobin 15.2 g/dL (12.0-18.0); pH ABG 7.403 (7.350-7.450)
[2020-03-09 20:14] LABS: Device ROOM AIR; Modified Allen's Test Pass; Site Drawn RIGHT RADIAL
[2020-03-09 20:21] LABS: Alanine Aminotransferase 17 U/L (4-35); Albumin Level 3.6 g/dL (3.5-5.1); Alkaline Phosphatase 95 U/L (38-126); Anion Gap 4 mmol/L (8-16); Aspartate Amino Transferase 29 U/L (14-36); Bilirubin,Total 0.5 mg/dL (0.2-1.3); Blood Urea Nitrogen 17 mg/dL (7-17); Calcium 9.2 mg/dL (8.4-10.2); Carbon Dioxide 38 mmol/L (22-30); Chloride 90 mmol/L (98-107); Estimated CRCL calculation 73 ml/min; Estimated Glomerular Filt Rate > 60; Glucose 155 mg/dL (65-105); Potassium 4.4 mmol/L (3.4-5.0); Sodium 132 mmol/L (137-145)
[2020-03-09] MEDS: MAGNESIUM SULF 2 GM/WATER 50ML 2 GM/50 ML BAG IVPB (20:24)
[2020-03-09] MEDS: methylPREDNISolone SOD SUCC 125 MG VIAL IV PUSH (20:24)
[2020-03-09 20:29] LABS: NT Pro B Type Natriuretic Pept 380 PG/ML (5-100)
--- NOTE | 2020-03-09 21:19 | PM.IMHP ---
H&P: HPI History of Present Illness Date/Time: 03/09/20 21:19 Chief complaint: COPD exacerbation, Narrative: Tom Rogers is a 74 year old female From [facility] with past medical history of COPD, CHF, CAD, anxiety, hypertension, sleep apnea presents to ED with complaints of dyspnea. He states this morning she choked on her a.m. medications and since then has had dyspnea a cough. He has no problems with swallowing in the past. She does have a history of COPD but is on any home oxygen. She uses CPAP for her sleep apnea. she was COVID tested 2 days ago for her routine screening at [facility] which was negative. patient at baseline uses wheelchair and does not walk around. In the ED: ABG consistent with hypercarbia hypoxia pCO2 53, PO2 59, this may be chronic as her pH is 7.4, she was started on BiPAP chest x-ray showed atelectasis versus pneumonia. She was given DuoNeb and steroids, magnesium. Patient made for COPD exacerbation. WBCs 10.4, lactic acid 1.2. Review of Systems Review of Systems: Narrative: Constitutional: No Fever, No Chills, No Night Sweats, No Fatigue, No Malaise ENT/Mouth: No Hearing Changes, No Ear Pain, No Nasal Congestion, No Sinus Pain, No Hoarseness, No sore throat, No Rhinorrhea, No Swallowing Difficulty Eyes: No Eye Pain, No Redness, No Vision Changes Cardiovascular: No Chest Pain, No Palpitations, No Dyspnea on Exertion, No Orthopnea, No Claudication Respiratory: endorses cough, shortness of breath , wheeze Gastrointestinal: No Nausea, No Vomiting, No Diarrhea, No Constipation, No Abdominal Pain, No Heartburn, No Hematochezia, No Melena Genitourinary: No Dysuria, No Urinary Frequency, No Hematuria, No Urinary Incontinence, No Urgency Musculoskeletal: No Arthralgias, No Myalgias, No Joint Swelling, No Joint Stiffness, No Back Pain Skin: No Skin Lesions, No Pruritis, No Hair Changes Neuro: No Weakness, No Numbness, No Paresthesias, No Loss of Consciousness, No Syncope, No Dizziness, No Headache Psych: No Anxiety/Panic, No Depression, No Insomnia Heme: No Bruising, No Bleeding Lymph: No Adenopathy Endocrine: No Polyuria, No Polydipsia, No Temperature Intolerance PMFSH Past Medical History Medical History Ankle arthritis Anxiety Bipolar disorder CAD (coronary artery disease) CHF (congestive heart failure) Colon cancer COPD (chronic obstructive pulmonary disease) PFTs January 2018 demonstrating severe obstructive ventilatory defect without acute bronchodilator response mildly decreased DLCO Crohn's disease Diabetes On long-term insulin therapy of last A1c 8.07 April 2019 Diabetic peripheral neuropathy Dyslipidemia Essential hypertension History of CVA (cerebrovascular accident) 2015 patient stated initially she had left-sided weakness but that has resolved. Sleep apnea On CPAP Urinary incontinence, mixed Surgical History Surgical History H/O heart artery stent X2 History of appendectomy History of back surgery History of bilateral carpal tunnel release History of bilateral cataract extraction History of bladder suspension procedure And bladder stimulator History of bowel resection Due to colon cancer 2012 History of cardiac catheterization History of 2 stents July 2016 History of cholecystectomy History of fusion of cervical spine Anterior cervical diskectomy and fusion History of hysterectomy History of left hip replacement 2009 History of tubal ligation Family History Family History Mother Acute myocardial infarction Pulmonary embolism Father Acute myocardial infarction Diabetes mellitus Sibling Acute myocardial infarction, Onset Age: 60 Social History Social History Social History: The
[2020-03-09 21:37] LABS: Lactic Acid Reflex 1.2 mmol/L (0.7-2.1)
--- NOTE | 2020-03-09 23:06 | ADMGEN ---
This patient, Tom Rogers, was admitted to 2 Medical Room 259-01. Patient/family oriented to hospital policies and general routines including ID bracelet, bed and alarms, visiting hours, pain management, procedures, bathroom and other care routines, personal items, smoking policy, room service/diet, and visiting hours. Information on how to activate the Rapid Response Team has been discussed. Patient/Family are encouraged to report perceived risks to care and to ask questions if they do not understand what they are told or what they should do.
[2020-03-10] VITALS (20 sets, daily range): BP systolic 145–164; BP diastolic 60–96; PULSE 70–90; RESP 18–35; TEMP 36.4–36.8; O2SAT 92–98
[2020-03-10] MEDS: ALBUTEROL SULFATE NEB 2.5 MG/0.5 ML INH 5 MG INHALATION ×4 (02:09→21:15)
[2020-03-10 03:25] LABS: Hemoglobin A1C 7.8 % (<5.7)
[2020-03-10] MEDS: HYDROcodone/acetaminophen (*CRX) 7.5-325 MG TABLET 1 TAB PO ×2 (04:45→20:36)
[2020-03-10] MEDS: methylPREDNISolone SOD SUCC 40 MG VIAL IV PUSH ×3 (06:55→22:41)
[2020-03-10] MEDS: PARoxetine 10 MG TABLET 30 MG PO (08:04)
[2020-03-10] MEDS: azaTHIOprine 25 MG TABLET PO (08:04)
[2020-03-10] MEDS: ATORVASTATIN 40 MG TABLET PO (08:04)
[2020-03-10] MEDS: MONTELUKAST SODIUM 10 MG TABLET PO (08:04)
[2020-03-10] MEDS: GABAPENTIN 300 MG CAPSULE 600 MG PO (08:04)
[2020-03-10] MEDS: LEVOTHYROXINE SODIUM 50 MCG TABLET PO (08:04)
[2020-03-10] MEDS: LORATADINE 10 MG TABLET PO (08:04)
[2020-03-10] MEDS: ASPIRIN 81 MG CHEWABLE TABLET PO (08:04)
[2020-03-10] MEDS: carvediloL 25 MG TABLET PO ×2 (08:04→20:40)
[2020-03-10] MEDS: ENOXAPARIN 40 MG/0.4 ML SYRINGE SUB-Q (08:05)
[2020-03-10] MEDS: PRAMIPEXOLE 0.5 MG TABLET 1 MG PO (08:05)
[2020-03-10] MEDS: LOSARTAN POTASSIUM 100 MG TABLET PO (08:05)
[2020-03-10] MEDS: BETAMETHASONE/CLOTRIMAZOLE CR 15 GM TUBE 1 APPLIC TOPICAL ×2 (08:05→17:07)
[2020-03-10] MEDS: TOLNAFTATE 1% POWDER 45 GM BTL 1 APPLIC TOPICAL ×2 (08:05→20:41)
[2020-03-10] MEDS: CHOLESTYRAMINE LIGHT 4 GM POWD.PACK PO (08:05)
[2020-03-10] MEDS: ACETAMINOPHEN 325 MG TABLET PO ×2 (08:06→18:49)
[2020-03-10] MEDS: IPRATROPIUM BR 0.02% INH SOLN 0.5 MG/2.5 ML VIAL INHALATION ×4 (08:57→21:15)
[2020-03-10 09:14] LABS: Glucose Point of Care 296 (65-105)
[2020-03-10] MEDS: INSULIN ASPART (*BKC) 100 UNITS/ML SUB-Q ×3 (09:30→17:02)
--- NOTE | 2020-03-10 10:01 | PM.IMPN ---
Progress Note: A&P Assessment and Plan (1) Acute exacerbation of chronic obstructive airways disease: Code(s): J44.1 - Chronic obstructive pulmonary disease with (acute) exacerbation Status: Acute Assessment and Plan: Patient with COPD presents with worsening shortness of breath. CXR shows mild bibasilar airspace opacities atelectasis vs. PNA. Clinically correlates with COPD exacerbation rather than pneumonia. Will discontinue Rocephin, continue azithromycin for anti-inflammatory properties. Continue IV Solu-medrol and monitor blood sugars; will add Pulmozyme, mucinex, cornet valve and incentive spirometry. Continue supplemental O2 as needed to keep saturations > 90%. BiPAP at night and with naps. (2) Respiratory failure: Qualifiers: Chronicity: acute on chronic Respiratory failure complication: hypoxia and hypercapnia Qualified Code(s): J96.21 - Acute and chronic respiratory failure with hypoxia; J96.22 - Acute and chronic respiratory failure with hypercapnia Code(s): J96.90 - Respiratory failure, unspecified, unspecified whether with hypoxia or hypercapnia Status: Acute Assessment and Plan: Acute respiratory failure with hypoxia and hypercapnia secondary to COPD exacerbation. Continue supplemental O2 and wean as tolerated. BiPAP at night. (3) Insulin dependent diabetes mellitus: Status: Chronic Assessment and Plan: A1c is 7.8. Significant insulin resistance with large home doses of 70/30 insulin. Continue her home insulin regimen with decreased doses, monitor with accu-cheks and also cover with SSI. Diabetic diet. (4) Hyponatremia: Code(s): E87.1 - Hypo-osmolality and hyponatremia Status: Acute Assessment and Plan: Na 132, will recheck in AM. Appears chronic based on review of previous labs. (5) Hypertension: Qualifiers: Hypertension type: essential hypertension Qualified Code(s): I10 - Essential (primary) hypertension Code(s): I10 - Essential (primary) hypertension Status: Chronic Assessment and Plan: Blood pressures reviewed and are variable, last 163/77 this morning. Continue home regimen with Coreg, losartan, lasix. (6) Sleep apnea: Qualifiers: Sleep apnea type: obstructive Qualified Code(s): G47.33 - Obstructive sleep apnea (adult) (pediatric) Code(s): G47.30 - Sleep apnea, unspecified Status: Chronic Assessment and Plan: Patient uses CPAP at night and with naps at [place]. BiPAP was used last night, we will continue this at night and with naps here. (7) Debility: Code(s): R53.81 - Other malaise Status: Chronic Assessment and Plan: Chronic physical debility, uses walker and wheelchair at assisted living. Appreciate PT/OT. Subjective Date/time seen: 03/10/20 0930 Interval history: Ms. Rogers is a pleasant 74yo F admitted for COPD exacerbation. She tells me her shortness of breath is improved this morning compared to yesterday. She has a productive cough a little more than her baseline. She denies chest pain. She tells me she complies with CPAP at night and with naps. Wore BiPAP here overnight last night, did not sleep much. She is now off BiPAP tolerating nasal cannula. Has tolerated some breakfast without nausea or vomiting. Review of Systems Review of Systems: All systems reviewed & are unremarkable except as noted in HPI and below Exam Narrative: Exam Narrative: General: Female resting comfortably sitting up in bed in no acute distress. HEENT: Normocephalic, EOMI, oral mucosa tacky. Cardiovascular: Rate and rhythm are regular. Respira
[2020-03-10 11:25] LABS: Glucose Point of Care 342 (65-105)
[2020-03-10] MEDS: MESALAMINE 250 MG CAP CR PO ×2 (11:55→18:50)
[2020-03-10] MEDS: FUROSEMIDE 40 MG TABLET PO (11:55)
[2020-03-10 16:37] LABS: Glucose Point of Care 297 (65-105)
[2020-03-10] MEDS: PERPHENAZINE 2 MG TABLET PO (20:40)
[2020-03-10] MEDS: DORNASE ALFA INH SOLN 1 MG/ML 2.5 ML AMP 2.5 MG INHALATION (21:15)
[2020-03-10] MEDS: guaiFENesin 12 HR 600 MG TABCR PO (21:44)
[2020-03-10 22:58] LABS: Glucose Point of Care 326 (65-105)
[2020-03-11] VITALS (20 sets, daily range): BP systolic 144–183; BP diastolic 58–81; PULSE 55–86; RESP 13–31; TEMP 36–36.4; O2SAT 93–100
[2020-03-11] MEDS: IPRATROPIUM BR 0.02% INH SOLN 0.5 MG/2.5 ML VIAL INHALATION ×4 (04:07→20:49)
[2020-03-11] MEDS: ALBUTEROL SULFATE NEB 2.5 MG/0.5 ML INH 5 MG INHALATION ×4 (04:07→20:48)
[2020-03-11] MEDS: LEVOTHYROXINE SODIUM 50 MCG TABLET PO (05:54)
[2020-03-11] MEDS: methylPREDNISolone SOD SUCC 40 MG VIAL IV PUSH ×3 (05:55→21:24)
[2020-03-11 06:44] LABS: Hematocrit 44.3 % (37.0-47.0); Hemoglobin 14.9 g/dL (12.0-15.0); Mean Corpuscular HGB Conc 33.6 g/dl (32-36); Mean Corpuscular Hemoglobin 31.6 pg (26-34); Mean Corpuscular Volume 94.1 fl (80-100); Mean Platelet Volume 10.3 fl (7.4-10.4); Platelet Count Result 165 k/mm3 (150-375); Red Blood Count 4.71 M/mm3 (4.2-5.4); Red Cell Distribution Width 12.5 % (11.5-14.5); White Blood Count 11.8 K/mm3 (4.5-10.0)
[2020-03-11 07:22] LABS: Anion Gap 7 mmol/L (8-16); Blood Urea Nitrogen 22 mg/dL (7-17); Calcium 8.9 mg/dL (8.4-10.2); Carbon Dioxide 33 mmol/L (22-30); Chloride 90 mmol/L (98-107); Estimated CRCL calculation 95 ml/min; Estimated Glomerular Filt Rate > 60; Glucose 294 mg/dL (65-105); Magnesium 2.2 mg/dL (1.6-2.3); Sodium 130 mmol/L (137-145)
[2020-03-11 07:55] LABS: Glucose Point of Care 334 (65-105)
[2020-03-11] MEDS: INSULIN ASPART (*BKC) 100 UNITS/ML SUB-Q ×3 (07:58→17:34)
[2020-03-11] MEDS: ATORVASTATIN 40 MG TABLET PO (08:15)
[2020-03-11] MEDS: ASPIRIN 81 MG CHEWABLE TABLET PO (08:15)
[2020-03-11] MEDS: PARoxetine 10 MG TABLET 30 MG PO (08:15)
[2020-03-11] MEDS: GABAPENTIN 300 MG CAPSULE 600 MG PO (08:15)
[2020-03-11] MEDS: MESALAMINE 250 MG CAP CR PO ×2 (08:15→17:38)
[2020-03-11] MEDS: ERGOCALCIFEROL 50,000 UNIT CAPSULE 50000 UNITS PO (08:15)
[2020-03-11] MEDS: PRAMIPEXOLE 0.5 MG TABLET 1 MG PO (08:16)
[2020-03-11] MEDS: LORATADINE 10 MG TABLET PO (08:16)
[2020-03-11] MEDS: LOSARTAN POTASSIUM 100 MG TABLET PO (08:16)
[2020-03-11] MEDS: carvediloL 25 MG TABLET PO ×2 (08:16→21:24)
[2020-03-11] MEDS: MONTELUKAST SODIUM 10 MG TABLET PO (08:16)
[2020-03-11] MEDS: azaTHIOprine 25 MG TABLET PO (08:16)
[2020-03-11] MEDS: CHOLESTYRAMINE LIGHT 4 GM POWD.PACK PO (08:16)
[2020-03-11] MEDS: guaiFENesin 12 HR 600 MG TABCR PO ×2 (08:16→21:24)
[2020-03-11] MEDS: ENOXAPARIN 40 MG/0.4 ML SYRINGE SUB-Q (08:16)
[2020-03-11] MEDS: BETAMETHASONE/CLOTRIMAZOLE CR 15 GM TUBE 1 APPLIC TOPICAL ×2 (08:16→17:37)
[2020-03-11] MEDS: DORNASE ALFA INH SOLN 1 MG/ML 2.5 ML AMP 2.5 MG INHALATION ×2 (08:17→20:49)
[2020-03-11] MEDS: TOLNAFTATE 1% POWDER 45 GM BTL 1 APPLIC TOPICAL ×2 (08:17→21:25)
[2020-03-11] MEDS: HYDROcodone/acetaminophen (*CRX) 7.5-325 MG TABLET 1 TAB PO ×3 (08:18→23:35)
--- NOTE | 2020-03-11 09:29 | PM.IMPN ---
Progress Note: A&P Assessment and Plan (1) Acute exacerbation of chronic obstructive airways disease: Code(s): J44.1 - Chronic obstructive pulmonary disease with (acute) exacerbation Status: Acute Assessment and Plan: Patient with COPD presents with worsening shortness of breath. CXR shows mild bibasilar airspace opacities atelectasis vs. PNA. Continue azithromycin for anti-inflammatory properties. Patient describes today that she choked on some pills in the day prior to admission. Repeat chest XR unchanged. ST eval appreciated. Continue IV Solu-medrol and monitor blood sugars; Continue Pulmozyme, mucinex, cornet valve and incentive spirometry. Continue supplemental O2 as needed to keep saturations > 90%. BiPAP at night and with naps. (2) Respiratory failure: Qualifiers: Chronicity: acute on chronic Respiratory failure complication: hypoxia and hypercapnia Qualified Code(s): J96.21 - Acute and chronic respiratory failure with hypoxia; J96.22 - Acute and chronic respiratory failure with hypercapnia Code(s): J96.90 - Respiratory failure, unspecified, unspecified whether with hypoxia or hypercapnia Status: Acute Assessment and Plan: Acute respiratory failure with hypoxia and hypercapnia secondary to COPD exacerbation. Continue supplemental O2 and wean as tolerated. CPAP at night. (3) Insulin dependent diabetes mellitus: Status: Chronic Assessment and Plan: A1c is 7.8. Significant insulin resistance with large home doses of 70/30 insulin. Blood sugars are high, could in part be related to steroids. Increase her insulin regimen up to her home doses, monitor with accu-cheks and also cover with SSI. Diabetic diet. (4) Hyponatremia: Code(s): E87.1 - Hypo-osmolality and hyponatremia Status: Acute Assessment and Plan: Appears chronic based on review of previous labs. Monitor BMP. (5) Hypertension: Qualifiers: Hypertension type: essential hypertension Qualified Code(s): I10 - Essential (primary) hypertension Code(s): I10 - Essential (primary) hypertension Status: Chronic Assessment and Plan: Blood pressures reviewed and are variable, last 144/58 this morning. Continue home regimen with Coreg, losartan, lasix. (6) Sleep apnea: Qualifiers: Sleep apnea type: obstructive Qualified Code(s): G47.33 - Obstructive sleep apnea (adult) (pediatric) Code(s): G47.30 - Sleep apnea, unspecified Status: Chronic Assessment and Plan: Continue CPAP at night and with naps. (7) Debility: Code(s): R53.81 - Other malaise Status: Chronic Assessment and Plan: Chronic physical debility, uses walker and wheelchair at assisted living. Appreciate PT/OT. Subjective Date/time seen: 03/11/20 09:00 Interval history: Ms. Rogers is a pleasant 74yo F admitted for acute respiratory failure with COPD exacerbation. She tells me her shortness of breath is a little improved this morning compared to yesterday. Walking to commode made her short of breath. Coughing but not able to bring much mucus up. Wore CPAP overnight last night and slept okay. She was able to tolerate breakfast without nausea and vomiting. Review of Systems Review of Systems: All systems reviewed & are unremarkable except as noted in HPI and below Exam Narrative: Exam Narrative: General: Female resting comfortably sitting up in bed in no acute distress. HEENT: Normocephalic, EOMI, oral mucosa moist. Cardiovascular: Rate and rhythm are regular. Respiratory: Diffuse coarse rhonchi and expiratory wheezing throughout all barrios. Mild
[2020-03-11 11:57] LABS: Glucose Point of Care 318 (65-105)
[2020-03-11] MEDS: FUROSEMIDE 40 MG TABLET PO (11:58)
--- NOTE | 2020-03-11 12:09 | PCSTNOTE ---
Please refer to the Bedside Swallow Evaluation in the EMR. Please note, silent aspiration cannot be ruled out at bedside.
[2020-03-11 13:09] LABS: SARS-CoV-2 RNA PCR Negative
[2020-03-11 17:09] LABS: Glucose Point of Care 268 (65-105)
[2020-03-11 20:07] LABS: Glucose Point of Care 337 (65-105)
[2020-03-11] MEDS: PERPHENAZINE 2 MG TABLET PO (21:24)
[2020-03-11] MEDS: ACETAMINOPHEN 325 MG TABLET PO (21:25)
[2020-03-12] VITALS (20 sets, daily range): BP systolic 152–190; BP diastolic 66–78; PULSE 68–92; RESP 20–30; TEMP 36.1–36.5; O2SAT 93–100
[2020-03-12] MEDS: IPRATROPIUM BR 0.02% INH SOLN 0.5 MG/2.5 ML VIAL INHALATION ×4 (02:59→21:27)
[2020-03-12] MEDS: ALBUTEROL SULFATE NEB 2.5 MG/0.5 ML INH 5 MG INHALATION ×4 (02:59→21:26)
[2020-03-12] MEDS: methylPREDNISolone SOD SUCC 40 MG VIAL IV PUSH ×3 (05:31→22:25)
[2020-03-12] MEDS: LEVOTHYROXINE SODIUM 50 MCG TABLET PO (05:31)
[2020-03-12 05:39] LABS: Hematocrit 42.8 % (37.0-47.0); Hemoglobin 14.4 g/dL (12.0-15.0); Immature Granulocyte Absolute 0.11 K/mm3 (0.00-0.031); Immature Granulocyte Percent A 0.9 % (0-0.5); Lymphocytes Absolute Auto 1.03 K/mm3 (0.9-3.2); Lymphocytes Percent Auto 8.4 % (18.3-44.2); Mean Corpuscular HGB Conc 33.6 g/dl (32-36); Mean Corpuscular Hemoglobin 31.4 pg (26-34); Mean Corpuscular Volume 93.4 fl (80-100); Mean Platelet Volume 8.9 fl (7.4-10.4); Monocytes Absolute Auto 0.3 K/mm3 (0.1-0.6); Monocytes Percent Auto 2.4 % (2.6-8.5); Neutrophils Absolute Auto 10.8 K/mm3 (1.3-6.7); Neutrophils Percent Auto 88.3 % (45.5-73.1); Platelet Count Result 194 k/mm3 (150-375); Red Blood Count 4.58 M/mm3 (4.2-5.4); Red Cell Distribution Width 12.3 % (11.5-14.5); White Blood Count 12.3 K/mm3 (4.5-10.0)
[2020-03-12 06:02] LABS: Anion Gap 5 mmol/L (8-16); Blood Urea Nitrogen 22 mg/dL (7-17); Calcium 8.9 mg/dL (8.4-10.2); Carbon Dioxide 37 mmol/L (22-30); Chloride 92 mmol/L (98-107); Estimated CRCL calculation 83 ml/min; Estimated Glomerular Filt Rate > 60; Glucose 224 mg/dL (65-105); Magnesium 2.2 mg/dL (1.6-2.3); Potassium 4.2 mmol/L (3.4-5.0); Sodium 134 mmol/L (137-145)
[2020-03-12] MEDS: HYDROcodone/acetaminophen (*CRX) 7.5-325 MG TABLET 1 TAB PO ×2 (06:09→22:22)
[2020-03-12 07:55] LABS: Glucose Point of Care 226 (65-105)
[2020-03-12] MEDS: INSULIN ASPART (*BKC) 100 UNITS/ML SUB-Q ×2 (08:09→11:52)
[2020-03-12] MEDS: ENOXAPARIN 40 MG/0.4 ML SYRINGE SUB-Q (08:18)
[2020-03-12] MEDS: ASPIRIN 81 MG CHEWABLE TABLET PO (08:18)
[2020-03-12] MEDS: GABAPENTIN 300 MG CAPSULE 600 MG PO (08:18)
[2020-03-12] MEDS: MESALAMINE 250 MG CAP CR PO ×2 (08:18→17:10)
[2020-03-12] MEDS: LORATADINE 10 MG TABLET PO (08:19)
[2020-03-12] MEDS: ATORVASTATIN 40 MG TABLET PO (08:19)
[2020-03-12] MEDS: PRAMIPEXOLE 0.5 MG TABLET 1 MG PO (08:19)
[2020-03-12] MEDS: azaTHIOprine 25 MG TABLET PO (08:19)
[2020-03-12] MEDS: LOSARTAN POTASSIUM 100 MG TABLET PO (08:19)
[2020-03-12] MEDS: PARoxetine 10 MG TABLET 30 MG PO (08:19)
[2020-03-12] MEDS: guaiFENesin 12 HR 600 MG TABCR PO ×2 (08:20→22:23)
[2020-03-12] MEDS: MONTELUKAST SODIUM 10 MG TABLET PO (08:20)
[2020-03-12] MEDS: carvediloL 25 MG TABLET PO ×2 (08:20→22:25)
[2020-03-12] MEDS: FUROSEMIDE 40 MG TABLET PO (08:20)
[2020-03-12] MEDS: BETAMETHASONE/CLOTRIMAZOLE CR 15 GM TUBE 1 APPLIC TOPICAL ×2 (08:21→17:10)
[2020-03-12] MEDS: TOLNAFTATE 1% POWDER 45 GM BTL 1 APPLIC TOPICAL ×2 (08:22→19:52)
[2020-03-12] MEDS: DORNASE ALFA INH SOLN 1 MG/ML 2.5 ML AMP 2.5 MG INHALATION ×2 (09:00→21:27)
[2020-03-12] MEDS: CHOLESTYRAMINE LIGHT 4 GM POWD.PACK PO (09:53)
[2020-03-12 11:47] LABS: Glucose Point of Care 274 (65-105)
--- NOTE | 2020-03-12 13:23 | P.PNIM_ITS ---
Progress Note: A&P Assessment and Plan (1) Acute exacerbation of chronic obstructive airways disease: Code(s): J44.1 - Chronic obstructive pulmonary disease with (acute) exacerbation Status: Acute Assessment and Plan: * Patient with COPD presents with worsening shortness of breath. CXR shows mild bibasilar airspace opacities atelectasis vs. PNA. Continue azithromycin (day 4) * Patient described that she choked on some pills in the day prior to admission. Repeat chest XR unchanged. ST eval noted no evidence of aspiration. * Continue IV Solu-medrol and monitor blood sugars; Continue Pulmozyme, mucinex, cornet valve and incentive spirometry. * Continue supplemental O2 as needed to keep saturations > 90%. CPAP at night and with naps. * Not much improvement with current therapy, appreciate pulmonology input. She may just be at the point where she is needing O2 at home. Unsure how much of these persisting symptoms may be her new normal. Her keypunch operator is Lisa Sherman, MARCELA at [place]. * COVID negative 03/02, tested regularly at her facility. (2) Respiratory failure: Qualifiers: Chronicity: acute on chronic Respiratory failure complication: hypoxia and hypercapnia Qualified Code(s): J96.21 - Acute and chronic respiratory failure with hypoxia; J96.22 - Acute and chronic respiratory failure with hypercapnia Code(s): J96.90 - Respiratory failure, unspecified, unspecified whether with hypoxia or hypercapnia Status: Acute Assessment and Plan: * Acute respiratory failure with hypoxia and hypercapnia secondary to COPD exacerbation. * Continue supplemental O2 and wean as tolerated. CPAP at night. (3) Insulin dependent diabetes mellitus: Status: Chronic Assessment and Plan: * A1c is 7.8. Significant insulin resistance with large home doses of 70/30 insulin. * Blood sugars are high, could in part be related to steroids. * Increase her insulin regimen, monitor with accu-cheks and also cover with SSI. Diabetic diet. (4) Hyponatremia: Code(s): E87.1 - Hypo-osmolality and hyponatremia Status: Acute Assessment and Plan: * Appears chronic based on review of previous labs. Na improved to 134 today. Monitor BMP. (5) Hypertension: Qualifiers: Hypertension type: essential hypertension Qualified Code(s): I10 - Essential (primary) hypertension Code(s): I10 - Essential (primary) hypertension Status: Chronic Assessment and Plan: * Blood pressures reviewed and are variable, last 152/66 this afternoon. * Continue home regimen with Coreg, losartan, lasix. (6) Sleep apnea: Qualifiers: Sleep apnea type: obstructive Qualified Code(s): G47.33 - Obstructive sleep apnea (adult) (pediatric) Code(s): G47.30 - Sleep apnea, unspecified Status: Chronic Assessment and Plan: * Continue CPAP at night and with naps. (7) Debility: Code(s): R53.81 - Other malaise Status: Chronic Assessment and Plan: * Chronic physical debility, uses walker and wheelchair at [facility] assisted living. Appreciate PT/OT. Subjective Date/time seen: 03/12/20 1015 Interval history: Ms. Rogers is a pleasant 74yo F admitted for acute respiratory failure with COPD exacerbation. H
--- NOTE | 2020-03-12 13:23 | PM.IMPN ---
Progress Note: A&P Assessment and Plan (1) Acute exacerbation of chronic obstructive airways disease: Code(s): J44.1 - Chronic obstructive pulmonary disease with (acute) exacerbation Status: Acute Assessment and Plan: Patient with COPD presents with worsening shortness of breath. CXR shows mild bibasilar airspace opacities atelectasis vs. PNA. Continue azithromycin (day 4) Patient described that she choked on some pills in the day prior to admission. Repeat chest XR unchanged. ST eval noted no evidence of aspiration. Continue IV Solu-medrol and monitor blood sugars; Continue Pulmozyme, mucinex, cornet valve and incentive spirometry. Continue supplemental O2 as needed to keep saturations > 90%. CPAP at night and with naps. Not much improvement with current therapy, appreciate pulmonology input. She may just be at the point where she is needing O2 at home. Unsure how much of these persisting symptoms may be her new normal. 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 COVID negative 03/02, tested regularly at her facility. (2) Respiratory failure: Qualifiers: Chronicity: acute on chronic Respiratory failure complication: hypoxia and hypercapnia Qualified Code(s): J96.21 - Acute and chronic respiratory failure with hypoxia; J96.22 - Acute and chronic respiratory failure with hypercapnia Code(s): J96.90 - Respiratory failure, unspecified, unspecified whether with hypoxia or hypercapnia Status: Acute Assessment and Plan: Acute respiratory failure with hypoxia and hypercapnia secondary to COPD exacerbation. Continue supplemental O2 and wean as tolerated. CPAP at night. (3) Insulin dependent diabetes mellitus: Status: Chronic Assessment and Plan: A1c is 7.8. Significant insulin resistance with large home doses of 70/30 insulin. Blood sugars are high, could in part be related to steroids. Increase her insulin regimen, monitor with accu-cheks and also cover with SSI. Diabetic diet. (4) Hyponatremia: Code(s): E87.1 - Hypo-osmolality and hyponatremia Status: Acute Assessment and Plan: Appears chronic based on review of previous labs. Na improved to 134 today. Monitor BMP. (5) Hypertension: Qualifiers: Hypertension type: essential hypertension Qualified Code(s): I10 - Essential (primary) hypertension Code(s): I10 - Essential (primary) hypertension Status: Chronic Assessment and Plan: Blood pressures reviewed and are variable, last 152/66 this afternoon. Continue home regimen with Coreg, losartan, lasix. (6) Sleep apnea: Qualifiers: Sleep apnea type: obstructive Qualified Code(s): G47.33 - Obstructive sleep apnea (adult) (pediatric) Code(s): G47.30 - Sleep apnea, unspecified Status: Chronic Assessment and Plan: Continue CPAP at night and with naps. (7) Debility: Code(s): R53.81 - Other malaise Status: Chronic Assessment and Plan: Chronic physical debility, uses walker and wheelchair at [facility] assisted living. Appreciate PT/OT. Subjective Date/time seen: 03/12/20 1015 Interval history: Ms. Rogers is a pleasant 74yo F admitted for acute respiratory failure with COPD exacerbation. Her shortness of breath is minimally improved today. She gets short of breath with minimal activity. Not able to sleep much. She denies chest pain. Able to tolerate breakfast without nausea or vomiting. Review of Systems Review of Systems: All systems reviewed & are unremarkable except as noted in HPI and below Exam Narrative: Exam Narrative: General: Female resting comf
[2020-03-12 16:50] LABS: Glucose Point of Care 189 (65-105)
[2020-03-12] MEDS: LOPERAMIDE HCL 2 MG CAPSULE PO (22:22)
[2020-03-12] MEDS: PERPHENAZINE 2 MG TABLET PO (22:24)
[2020-03-12] MEDS: PRAMIPEXOLE 1 MG TABLET PO (22:45)
[2020-03-12 23:02] LABS: Glucose Point of Care 140 (65-105)
[2020-03-13] VITALS (18 sets, daily range): BP systolic 84–188; BP diastolic 30–90; PULSE 60–86; RESP 18–26; TEMP 35.9–36.4; O2SAT 93–98
--- NOTE | 2020-03-13 | ECHO_ITS ---
Patient Info Name: Tom Rogers Age: 74 years : 1945 Gender: Female Ht: 65 in Wt: 273 lbs BSA: 2.45 m2 HR: 78 bpm BP: 187 / 78 mmHg Heart Rhythm: Sinus Rhythm Technical Quality: Fair Exam Date: 03/13/2020 12:32 PM Exam Location: [facility] Pulmonary Exam Room: 259 Patient Status: Inpatient Admit Date: 03/11/2020 Staff Ordering Physician: Kimberlyn Wallace PA-C Campus Wellness Coordinator: Lynda Culver RDCS Attending Provider: Fernanda Murcia PA-C Exam Type: CA echo doppler color flow Study Info Indications - pulmonary disease snow Complete two-dimensional, color flow and Doppler transthoracic echocardiogram is performed. Summary 1. Complete two-dimensional, color flow and Doppler transthoracic echocardiogram is performed. 2. Left ventricular systolic function is normal, estimated at 60-65%. 3. There is mildly increased left ventricular wall thickness. 4. The left ventricular diastolic function is grade I diastolic dysfunction. 5. Left atrial chamber dimension is mildly enlarged. 6. There is no aortic valve stenosis. 7. There is trace tricuspid valve regurgitation. 8. No pulmonary hypertension, estimated pulmonary arterial systolic pressure is 21 mmHg. 9. The pericardium appears increased echogenicity of the pericardium. 10. There is small to moderate circumferential pericardial effusion up 1.1 to 1.5cm largest posteriorly located. 11. No hemodynamic evidence of tamponade physiology. However, very slight invagination of the right atrial free wall suggestive of increased intrapericardial pressures. 12. Normal inferior vena cava with >50% collapse upon inspiration consistent with normal right atrial pressure, 5 mmHg. Left Ventricle Left ventricular chamber dimension is normal. Left ventricular systolic function is normal, estimated at 60-65%. There is mildly increased left ventricular wall thickness. The left ventricular diastolic function is grade I diastolic dysfunction. Right Ventricle Right ventricular chamber dimension is normal. Right ventricular systolic function is normal. Left Atria Left atrial chamber dimension is mildly enlarged. Right Atria Right atrial chamber dimension is normal. Aortic Valve The aortic valve is not well visualized. There is no aortic valve stenosis. There is no aortic valve regurgitation. Pulmonic Valve The pulmonic valve is not well visualized. There is trace pulmonic regurgitation. Mitral Valve The mitral valve has normal leaflets. There is trace mitral valve regurgitation. The mitral valve annulus is mildly calcified. Tricuspid Valve The tricuspid valve leaflets are normal. There is trace tricuspid valve regurgitation. No pulmonary hypertension, estimated pulmonary arterial systolic pressure is 21 mmHg. Pericardium/Pleural The pericardium appears increased echogenicity of the pericardium. There is small to moderate circumferential pericardial effusion up 1.1 to 1.5cm largest posteriorly located. No hemodynamic evidence of tamponade physiology. However, very slight invagination of the right atrial free wall suggestive of increased intrapericardial pressures. Inferior Vena Cava Normal inferior vena cava with >50% collapse upon inspiration consistent with normal right atrial pressure, 5 mmHg. Aorta The aortic root size at the sinus of Valsalva is normal. There is mild aortic atherosclerosis. Left Ventricular Outflow Tract
[2020-03-13] MEDS: IPRATROPIUM BR 0.02% INH SOLN 0.5 MG/2.5 ML VIAL INHALATION ×3 (02:45→20:36)
[2020-03-13] MEDS: ALBUTEROL SULFATE NEB 2.5 MG/0.5 ML INH 5 MG INHALATION ×3 (02:45→20:36)
[2020-03-13] MEDS: LEVOTHYROXINE SODIUM 50 MCG TABLET PO (05:31)
[2020-03-13] MEDS: methylPREDNISolone SOD SUCC 40 MG VIAL IV PUSH ×3 (05:31→21:12)
[2020-03-13] MEDS: HYDROcodone/acetaminophen (*CRX) 7.5-325 MG TABLET 1 TAB PO ×2 (05:32→21:11)
[2020-03-13 06:14] LABS: Basophils Percent Auto 0.2 % (0.2-1.2); Eosinophils Percent Auto 0.1 % (0-4.4); Hematocrit 47.8 % (37.0-47.0); Hemoglobin 16.1 g/dL (12.0-15.0); Immature Granulocyte Absolute 0.09 K/mm3 (0.00-0.031); Immature Granulocyte Percent A 0.8 % (0-0.5); Lymphocytes Absolute Auto 1.19 K/mm3 (0.9-3.2); Mean Corpuscular HGB Conc 33.7 g/dl (32-36); Mean Platelet Volume 8.7 fl (7.4-10.4); Monocytes Absolute Auto 0.4 K/mm3 (0.1-0.6); Monocytes Percent Auto 3.6 % (2.6-8.5); Neutrophils Absolute Auto 10.2 K/mm3 (1.3-6.7); Neutrophils Percent Auto 85.3 % (45.5-73.1); Platelet Count Result 199 k/mm3 (150-375); Red Blood Count 5.03 M/mm3 (4.2-5.4); Red Cell Distribution Width 12.5 % (11.5-14.5)
[2020-03-13 08:30] LABS: Glucose Point of Care 142 (65-105)
[2020-03-13] MEDS: LORATADINE 10 MG TABLET PO (09:26)
[2020-03-13] MEDS: azaTHIOprine 25 MG TABLET PO (09:26)
[2020-03-13] MEDS: ASPIRIN 81 MG CHEWABLE TABLET PO (09:26)
[2020-03-13] MEDS: ATORVASTATIN 40 MG TABLET PO (09:26)
[2020-03-13] MEDS: GABAPENTIN 300 MG CAPSULE 600 MG PO (09:27)
[2020-03-13] MEDS: BETAMETHASONE/CLOTRIMAZOLE CR 15 GM TUBE 1 APPLIC TOPICAL ×2 (09:27→17:02)
[2020-03-13] MEDS: ENOXAPARIN 40 MG/0.4 ML SYRINGE SUB-Q (09:27)
[2020-03-13] MEDS: FUROSEMIDE 40 MG TABLET PO (09:27)
[2020-03-13] MEDS: MONTELUKAST SODIUM 10 MG TABLET PO (09:27)
[2020-03-13] MEDS: LOSARTAN POTASSIUM 100 MG TABLET PO (09:28)
[2020-03-13] MEDS: MESALAMINE 250 MG CAP CR PO ×2 (09:28→17:02)
[2020-03-13] MEDS: PARoxetine 10 MG TABLET 30 MG PO (09:28)
[2020-03-13] MEDS: guaiFENesin 12 HR 600 MG TABCR PO ×2 (09:28→21:12)
[2020-03-13] MEDS: carvediloL 25 MG TABLET PO ×2 (09:29→21:12)
[2020-03-13] MEDS: TOLNAFTATE 1% POWDER 45 GM BTL 1 APPLIC TOPICAL ×2 (09:29→21:13)
[2020-03-13] MEDS: INSULIN ASPART MIX 70/30 100 UNITS/ML 50 UNITS SUB-Q (09:31)
[2020-03-13 10:06] LABS: Anion Gap 4.99999 mmol/L (8-16); Blood Urea Nitrogen 25 mg/dL (7-17); Calcium 8.9 mg/dL (8.4-10.2); Carbon Dioxide > 40 mmol/L (22-30); Chloride 90 mmol/L (98-107); Estimated CRCL calculation 73 ml/min; Estimated Glomerular Filt Rate > 60; Glucose 273 mg/dL (65-105); Magnesium 2.3 mg/dL (1.6-2.3); Potassium 4.9 mmol/L (3.4-5.0); Sodium 135 mmol/L (137-145)
--- NOTE | 2020-03-13 10:21 | PM.IMPN ---
Progress Note: A&P Assessment and Plan (1) Acute exacerbation of chronic obstructive airways disease: Code(s): J44.1 - Chronic obstructive pulmonary disease with (acute) exacerbation Status: Acute Assessment and Plan: Patient with COPD presented with worsening shortness of breath. CXR showed mild bibasilar airspace opacities atelectasis vs. PNA. Patient described that she choked on some pills in the day prior to admission. Repeat chest XR unchanged. ST eval noted no evidence of aspiration. She is maintaining adequate oxygen saturations on 1.5 L O2 per NC. She is established with pulmonology at [place] (Lisa Sherman, MARCELA) and is not on chronic O2. Continue azithromycin (day 5) Continue IV Solu-medrol, wean to q12h. Monitor blood sugars. Mild leukocytosis secondary to steroids noted Continue Pulmozyme, mucinex, cornet valve and incentive spirometry. Continue supplemental O2 as needed to keep saturations > 90%. CPAP at night and with naps. Minimal improvement with current therapy, appreciate pulmonology input. She may just be at the point where she is needing O2 at home. Unsure how much of these persisting symptoms may be her new normal. (2) Respiratory failure: Qualifiers: Chronicity: acute on chronic Respiratory failure complication: hypoxia and hypercapnia Qualified Code(s): J96.21 - Acute and chronic respiratory failure with hypoxia; J96.22 - Acute and chronic respiratory failure with hypercapnia Code(s): J96.90 - Respiratory failure, unspecified, unspecified whether with hypoxia or hypercapnia Status: Acute Assessment and Plan: Acute respiratory failure with hypoxia and hypercapnia secondary to COPD exacerbation. Covid test negative on 03/02. Plan as above. Continue supplemental O2 and wean as tolerated. CPAP at night. Appreciate pulmonology input. (3) Insulin dependent diabetes mellitus: Status: Chronic Assessment and Plan: A1c is 7.8. Significant insulin resistance with large home doses of 70/30 insulin. Blood sugars have been evaluated and are improved today in the 140s. Several prior readings in the 300s. Elevation likely in part related to steroids. Insulin regimen was increased to 90 units in the morning and 58 units pm. Monitor with accu-cheks and also cover with SSI. Hypoglycemic protocol Continu diabetic diet. Blood sugar was 140 this morning so scheduled AM insulin was decreased by half. (4) Hyponatremia: Code(s): E87.1 - Hypo-osmolality and hyponatremia Status: Acute Assessment and Plan: Appears chronic based on review of previous labs. Na improved to 135 today. Monitor BMP. (5) Hypertension: Qualifiers: Hypertension type: essential hypertension Qualified Code(s): I10 - Essential (primary) hypertension Code(s): I10 - Essential (primary) hypertension Status: Chronic Assessment and Plan: Blood pressures reviewed and are variable, last 168/74 this afternoon. Continue home regimen with Coreg, losartan, lasix. (6) Sleep apnea: Qualifiers: Sleep apnea type: obstructive Qualified Code(s): G47.33 - Obstructive sleep apnea (adult) (pediatric) Code(s): G47.30 - Sleep apnea, unspecified Status: Chronic Assessment and Plan: Continue CPAP at night and with naps. (7) Debility: Code(s): R53.81 - Other malaise Status: Chronic Assessment and Plan: Chronic physical debility, uses walker and wheelchair at [facility] assisted living. Appreciate PT/OT. Subjective Date/time seen: 03/13/20 10:21 Interval history: Date of service: 03/13/2020 Tom Rogers is a 74 year old female with a history of CAD, CHF, COPD, Crohn's disease, DM, HTN, MURPHY, and bipolar disorder who is seen in follow up for COPD exacerbation. She reports that she is doing better today. She continues to complain of dyspnea with minimal exertion. [place]
[2020-03-13] MEDS: CHOLESTYRAMINE LIGHT 4 GM POWD.PACK PO (10:30)
[2020-03-13 11:40] LABS: Glucose Point of Care 200 (65-105)
[2020-03-13 17:04] LABS: Glucose Point of Care 203 (65-105)
[2020-03-13] MEDS: INSULIN ASPART (*BKC) 100 UNITS/ML SUB-Q (17:04)
[2020-03-13] MEDS: ACETAMINOPHEN 325 MG TABLET PO (18:31)
[2020-03-13] MEDS: DORNASE ALFA INH SOLN 1 MG/ML 2.5 ML AMP 2.5 MG INHALATION (20:38)
[2020-03-13] MEDS: ONDANSETRON INJ 4 MG/2 ML VIAL IV PUSH (21:11)
[2020-03-13] MEDS: PERPHENAZINE 2 MG TABLET PO (21:12)
[2020-03-13] MEDS: PRAMIPEXOLE 0.5 MG TABLET 1 MG PO (21:13)
[2020-03-14] VITALS (20 sets, daily range): BP systolic 138–178; BP diastolic 60–87; PULSE 60–89; RESP 16–24; TEMP 36.1–36.7; O2SAT 92–98
[2020-03-14 01:33] LABS: Glucose Point of Care 182 (65-105)
[2020-03-14] MEDS: ALBUTEROL SULFATE NEB 2.5 MG/0.5 ML INH 5 MG INHALATION ×4 (03:01→21:29)
[2020-03-14] MEDS: IPRATROPIUM BR 0.02% INH SOLN 0.5 MG/2.5 ML VIAL INHALATION ×4 (03:01→21:30)
[2020-03-14] MEDS: LEVOTHYROXINE SODIUM 50 MCG TABLET PO (05:46)
[2020-03-14 06:16] LABS: Hematocrit 48.9 % (37.0-47.0); Hemoglobin 16.3 g/dL (12.0-15.0); Mean Corpuscular HGB Conc 33.3 g/dl (32-36); Mean Corpuscular Hemoglobin 32.2 pg (26-34); Mean Corpuscular Volume 96.6 fl (80-100); Mean Platelet Volume 8.6 fl (7.4-10.4); Platelet Count Result 199 k/mm3 (150-375); Red Blood Count 5.06 M/mm3 (4.2-5.4); Red Cell Distribution Width 12.3 % (11.5-14.5); White Blood Count 11.3 K/mm3 (4.5-10.0)
[2020-03-14 06:26] LABS: Anion Gap 6.99999 mmol/L (8-16); Blood Urea Nitrogen 24 mg/dL (7-17); Calcium 8.7 mg/dL (8.4-10.2); Carbon Dioxide > 40 mmol/L (22-30); Chloride 91 mmol/L (98-107); Estimated CRCL calculation 83 ml/min; Estimated Glomerular Filt Rate > 60; Glucose 159 mg/dL (65-105); Sodium 138 mmol/L (137-145)
[2020-03-14 08:07] LABS: Glucose Point of Care 172 (65-105)
[2020-03-14] MEDS: DORNASE ALFA INH SOLN 1 MG/ML 2.5 ML AMP 2.5 MG INHALATION ×2 (08:48→21:31)
[2020-03-14] MEDS: GABAPENTIN 300 MG CAPSULE 600 MG PO (09:18)
[2020-03-14] MEDS: MONTELUKAST SODIUM 10 MG TABLET PO (09:18)
[2020-03-14] MEDS: LORATADINE 10 MG TABLET PO (09:18)
[2020-03-14] MEDS: FUROSEMIDE 40 MG TABLET PO (09:18)
[2020-03-14] MEDS: LOSARTAN POTASSIUM 100 MG TABLET PO (09:18)
[2020-03-14] MEDS: PARoxetine 10 MG TABLET 30 MG PO (09:18)
[2020-03-14] MEDS: ATORVASTATIN 40 MG TABLET PO (09:19)
[2020-03-14] MEDS: ASPIRIN 81 MG CHEWABLE TABLET PO (09:19)
[2020-03-14] MEDS: ENOXAPARIN 40 MG/0.4 ML SYRINGE SUB-Q (09:19)
[2020-03-14] MEDS: methylPREDNISolone SOD SUCC 40 MG VIAL IV PUSH ×2 (09:19→21:07)
[2020-03-14] MEDS: TOLNAFTATE 1% POWDER 45 GM BTL 1 APPLIC TOPICAL ×2 (09:19→21:09)
[2020-03-14] MEDS: MESALAMINE 250 MG CAP CR PO ×2 (09:19→16:53)
[2020-03-14] MEDS: BETAMETHASONE/CLOTRIMAZOLE CR 15 GM TUBE 1 APPLIC TOPICAL ×2 (09:19→16:54)
[2020-03-14] MEDS: guaiFENesin 12 HR 600 MG TABCR PO ×2 (09:19→21:09)
[2020-03-14] MEDS: azaTHIOprine 25 MG TABLET PO (09:19)
[2020-03-14] MEDS: carvediloL 25 MG TABLET PO ×2 (09:20→21:08)
[2020-03-14] MEDS: CHOLESTYRAMINE LIGHT 4 GM POWD.PACK PO (11:42)
[2020-03-14 12:09] LABS: Glucose Point of Care 319 (65-105)
[2020-03-14] MEDS: INSULIN ASPART (*BKC) 100 UNITS/ML SUB-Q ×2 (12:29→16:55)
--- NOTE | 2020-03-14 13:11 | PM.IMPN ---
Progress Note: A&P Assessment and Plan (1) Acute exacerbation of chronic obstructive airways disease: Code(s): J44.1 - Chronic obstructive pulmonary disease with (acute) exacerbation Status: Acute Assessment and Plan: Patient with COPD presented with worsening shortness of breath. CXR showed mild bibasilar airspace opacities atelectasis vs. PNA. Patient described that she choked on some pills in the day prior to admission. Repeat chest XR unchanged. ST eval noted no evidence of aspiration. She is maintaining adequate oxygen saturations on 1.5 L O2 per NC. She is established with pulmonology at [place] (Lisa Sherman, MARCELA) and is not on chronic O2. Continue IV Solu-medrol q12h. Monitor blood sugars. Mild leukocytosis secondary to steroids noted Continue Pulmozyme, mucinex, cornet valve and incentive spirometry. Continue supplemental O2 as needed to keep saturations > 90%. CPAP at night and with naps. Minimal improvement with current therapy, therefore consult placed to pulmonology and recommendations are appreciated. She may just be at the point where she is requiring home O2. Unsure how much of these persisting symptoms may be her new normal. Echo has been ordered due to pulmonary disease and VIEIRA; results are pending She completed 5 days of IV azithromycin. Discontinued today. (2) Respiratory failure: Qualifiers: Chronicity: acute on chronic Respiratory failure complication: hypoxia and hypercapnia Qualified Code(s): J96.21 - Acute and chronic respiratory failure with hypoxia; J96.22 - Acute and chronic respiratory failure with hypercapnia Code(s): J96.90 - Respiratory failure, unspecified, unspecified whether with hypoxia or hypercapnia Status: Acute Assessment and Plan: Acute respiratory failure with hypoxia and hypercapnia secondary to COPD exacerbation. Covid test negative on 03/02. Plan as above. Continue supplemental O2 and wean as tolerated. CPAP at night. Appreciate pulmonology input. (3) Insulin dependent diabetes mellitus: Status: Chronic Assessment and Plan: A1c is 7.8. Significant insulin resistance with large home doses of 70/30 insulin. Blood sugars have been evaluated and are improved today in the 160-170s. Several prior readings in the 300s. Elevation likely in part related to steroids. Insulin regimen was increased to 90 units in the morning and 58 units pm. Monitor with accu-cheks and also cover with SSI. Hypoglycemic protocol Continue diabetic diet. Blood sugar was 159 this morning so scheduled AM insulin was decreased to 60 units to prevent hypoglycemia. I will reduce her AM insulin back to her usual dose of 84 units and will closely monitor blood sugar trend. (4) Hyponatremia: Code(s): E87.1 - Hypo-osmolality and hyponatremia Status: Acute Assessment and Plan: Resolved. Appears chronic based on review of previous labs. Na improved to 138 today. Monitor BMP. (5) Hypertension: Qualifiers: Hypertension type: essential hypertension Qualified Code(s): I10 - Essential (primary) hypertension Code(s): I10 - Essential (primary) hypertension Status: Chronic Assessment and Plan: Blood pressures reviewed and are variable. BP reviewed today and is stable at 146/64. Continue home regimen with Coreg, losartan, lasix. Monitor BP daily. (6) Sleep apnea: Qualifiers: Sleep apnea type: obstructive Qualified Code(s): G47.33 - Obstructive sleep apnea (adult) (pediatric) Code(s): G47.30 - Sleep apnea, unspecified Status: Chronic Assessment and Plan: Chronic. Continue CPAP at night and with naps. Echo performed to evaluate for possibility of heart strain secondary to MURPHY; results pending (7) Debility: Code(s): R53.81 - Other malaise Status: Chronic Assessment and Plan: Chronic physical debility, uses walker and wheelchair at
[2020-03-14 14:59] LABS: Glucose Point of Care 382 (65-105)
[2020-03-14 16:50] LABS: Glucose Point of Care 285 (65-105)
[2020-03-14] MEDS: ONDANSETRON INJ 4 MG/2 ML VIAL IV PUSH (16:53)
[2020-03-14] MEDS: ACETAMINOPHEN 325 MG TABLET PO (16:53)
[2020-03-14] MEDS: PRAMIPEXOLE 0.5 MG TABLET 1 MG PO (21:07)
[2020-03-14] MEDS: PERPHENAZINE 2 MG TABLET PO (21:09)
[2020-03-14] MEDS: HYDROcodone/acetaminophen (*CRX) 7.5-325 MG TABLET 1 TAB PO (21:10)
[2020-03-15] VITALS (16 sets, daily range): BP systolic 143–177; BP diastolic 64–82; PULSE 62–75; RESP 17–26; TEMP 36.1–36.7; O2SAT 91–99
[2020-03-15 00:01] LABS: Glucose Point of Care 103 (65-105)
[2020-03-15 00:53] LABS: SARS-CoV-2 RNA PCR Negative
[2020-03-15] MEDS: ALBUTEROL SULFATE NEB 2.5 MG/0.5 ML INH 5 MG INHALATION ×4 (01:50→21:22)
[2020-03-15] MEDS: IPRATROPIUM BR 0.02% INH SOLN 0.5 MG/2.5 ML VIAL INHALATION ×4 (01:50→21:22)
[2020-03-15 05:36] LABS: Hematocrit 50.5 % (37.0-47.0); Hemoglobin 16.8 g/dL (12.0-15.0); Mean Corpuscular HGB Conc 33.3 g/dl (32-36); Mean Corpuscular Hemoglobin 31.9 pg (26-34); Mean Corpuscular Volume 95.8 fl (80-100); Mean Platelet Volume 8.7 fl (7.4-10.4); Platelet Count Result 215 k/mm3 (150-375); Red Blood Count 5.27 M/mm3 (4.2-5.4); Red Cell Distribution Width 12.4 % (11.5-14.5); White Blood Count 14.8 K/mm3 (4.5-10.0)
[2020-03-15] MEDS: LEVOTHYROXINE SODIUM 50 MCG TABLET PO (06:40)
[2020-03-15 07:19] LABS: Anion Gap 5.99999 mmol/L (8-16); Blood Urea Nitrogen 28 mg/dL (7-17); Calcium 8.7 mg/dL (8.4-10.2); Carbon Dioxide > 40 mmol/L (22-30); Chloride 90 mmol/L (98-107); Estimated CRCL calculation 83 ml/min; Estimated Glomerular Filt Rate > 60; Glucose 138 mg/dL (65-105); Potassium 4.2 mmol/L (3.4-5.0); Sodium 136 mmol/L (137-145)
[2020-03-15 08:03] LABS: Glucose Point of Care 140 (65-105)
[2020-03-15] MEDS: ASPIRIN 81 MG CHEWABLE TABLET PO (08:29)
[2020-03-15] MEDS: ATORVASTATIN 40 MG TABLET PO (08:29)
[2020-03-15] MEDS: azaTHIOprine 25 MG TABLET PO (08:30)
[2020-03-15] MEDS: BETAMETHASONE/CLOTRIMAZOLE CR 15 GM TUBE 1 APPLIC TOPICAL ×2 (08:30→19:05)
[2020-03-15] MEDS: CHOLESTYRAMINE LIGHT 4 GM POWD.PACK PO (08:31)
[2020-03-15] MEDS: ENOXAPARIN 40 MG/0.4 ML SYRINGE SUB-Q (08:31)
[2020-03-15] MEDS: carvediloL 25 MG TABLET PO ×2 (08:31→20:58)
[2020-03-15] MEDS: FUROSEMIDE 40 MG TABLET PO (08:32)
[2020-03-15] MEDS: GABAPENTIN 300 MG CAPSULE 600 MG PO (08:32)
[2020-03-15] MEDS: ERGOCALCIFEROL 50,000 UNIT CAPSULE 50000 UNITS PO (08:32)
[2020-03-15] MEDS: guaiFENesin 12 HR 600 MG TABCR PO ×2 (08:32→20:58)
[2020-03-15] MEDS: LORATADINE 10 MG TABLET PO (08:33)
[2020-03-15] MEDS: MESALAMINE 250 MG CAP CR PO ×2 (08:33→19:05)
[2020-03-15] MEDS: methylPREDNISolone SOD SUCC 40 MG VIAL IV PUSH ×2 (08:33→20:58)
[2020-03-15] MEDS: MONTELUKAST SODIUM 10 MG TABLET PO (08:33)
[2020-03-15] MEDS: LOSARTAN POTASSIUM 100 MG TABLET PO (08:33)
[2020-03-15] MEDS: PARoxetine 10 MG TABLET 30 MG PO (08:33)
[2020-03-15] MEDS: TOLNAFTATE 1% POWDER 45 GM BTL 1 APPLIC TOPICAL ×2 (08:34→20:59)
[2020-03-15] MEDS: HYDROcodone/acetaminophen (*CRX) 7.5-325 MG TABLET 1 TAB PO ×2 (08:53→22:48)
--- NOTE | 2020-03-15 12:17 | PM.CNPUL ---
Assessment and Plan Assessment and plan (1) Acute exacerbation of chronic obstructive airways disease: Code(s): J44.1 - Chronic obstructive pulmonary disease with (acute) exacerbation Status: Acute Assessment and Plan: She is admitted with an exacerbation of OCPD, and as such will benefit from IV Solu-Medrol, empiric antibiotics until infection is ruled out. She does use BiPAP for sleep apnea and this will be continued since this is obviously indicated with her hypercapnia. We will continue home medications including montelukast. Bronchodilator therapy with DuoNeb q.6 hours. We will continue to follow her hypo need tree me a. Her glucose will be monitored by medical team as she will be having increased steroid dose. She has a multitude of other chronic medical conditions which will be managed by medical team. She is immunocompromised on azathioprine. Thank you for consulting us to see this pleasant patient. History of Present Illness History of Present Illness Consult date: 03/15/20 Requesting physician: Fernanda Murcia PA-C Chief complaint: COPD exacerbation, Narrative: NEW: Tom Rogers is a 74 yo female with COPD And obstructive sleep apnea syndrome. she has other medical comorbidities. She is a resident at [facility]. On the day of admission she choked on medications. Since that time she has had increasing cough and shortness of breath. Her cough is nonproductive, and she has been wheezing; she denies chest pain and denies hemoptysis. She has CPAP that she does use for sleep apnea. She had a negative COVID test 2 days prior to this admission. Her arterial blood gas in the emergency department showed pH 7.40 pCO2 53 PO2 59 H CO3 32 and saturation 89 % on room air. She is shows a chronic respiratory acidosis with metabolic compensation. which is compensated. CXR shows atelectasis, less likely an infiltrate. She is being admitted with a COPD exacerbation Review of Systems Constitutional: Constitutional: Denies fever(s), Denies night sweats and Reports other ( denies chills) Eyes: Eyes: Reports no additional eye complaints ENT: Denies headache(s), Denies nasal congestion, Denies nasal discharge and Denies sore throat Cardiovascular: Cardiovascular: Denies chest pain and Denies chest pain at rest Genitourinary: Genitourinary: Reports no additional female genitourinary complaints Endocrine: Endocrine: Reports no additional endocrine complaints PMFSH Past Medical History Medical History (Updated 03/21/20 @ 10:52 by Fernanda Murcia PA-C) Acute blood loss anemia Ankle arthritis Anxiety Bipolar disorder CAD (coronary artery disease) CHF (congestive heart failure) Colon cancer COPD (chronic obstructive pulmonary disease) PFTs January 2018 demonstrating severe obstructive ventilatory defect without acute bronchodilator response mildly decreased DLCO Crohn's disease Diabetes On long-term insulin therapy of last A1c 8.07 April 2019 Diabetic peripheral neuropathy Dyslipidemia Essential hypertension Gastric ulcer History of CVA (cerebrovascular accident) 2015 patient stated initially she had left-sided weakness but that has resolved. Obesity, morbid, BMI 40.0-49.9 Sleep apnea On CPAP Urinary incontinence, mixed Surgical History Surgical History H/O heart artery stent X2 History of appendectomy History of back surgery History of bilateral carpal tunnel release History of bilateral cataract extraction History of bladder suspension procedure And bladder stimulator History of bowel resection Due to colon cancer 2012 History of cardiac catheterization History of 2 stents July 2016 History of cholecystectomy History of fusion of cervical spine Anterior cervical diskectomy and fusion History of hysterectomy History of left hip replacement 2009 History of tubal ligation Family History Family History (Reviewe
[2020-03-15 13:00] LABS: Glucose Point of Care 152 (65-105)
--- NOTE | 2020-03-15 14:05 | PM.IMPN ---
Progress Note: A&P Assessment and Plan (1) Acute exacerbation of chronic obstructive airways disease: Code(s): J44.1 - Chronic obstructive pulmonary disease with (acute) exacerbation Status: Acute Assessment and Plan: Patient with COPD presented with worsening shortness of breath. CXR showed mild bibasilar airspace opacities atelectasis vs. PNA. Patient described that she choked on some pills in the day prior to admission. Repeat chest XR unchanged. ST eval noted no evidence of aspiration. She is maintaining adequate oxygen saturations on 1.5 L O2 per NC. She is established with pulmonology at [place] (Lisa Sherman, MARCELA) and is not on chronic O2. Continue IV Solu-medrol q12h. Monitor blood sugars. Mild leukocytosis secondary to steroids noted Continue Pulmozyme, mucinex, cornet valve and incentive spirometry. Continue supplemental O2 as needed to keep saturations > 90%. CPAP at night and with naps. Minimal improvement with current therapy, therefore consult placed to pulmonology and recommendations are appreciated. She may just be at the point where she is requiring home O2. Unsure how much of these persisting symptoms may be her new normal. She completed 5 days of IV azithromycin. Discontinued on 03/14/20. (2) Respiratory failure: Qualifiers: Chronicity: acute on chronic Respiratory failure complication: hypoxia and hypercapnia Qualified Code(s): J96.21 - Acute and chronic respiratory failure with hypoxia; J96.22 - Acute and chronic respiratory failure with hypercapnia Code(s): J96.90 - Respiratory failure, unspecified, unspecified whether with hypoxia or hypercapnia Status: Acute Assessment and Plan: Acute respiratory failure with hypoxia and hypercapnia secondary to COPD exacerbation. Covid test negative on 03/02. Echo showed no evidence of pulmonary hypertension. Plan as above. Continue supplemental O2 and wean as tolerated. CPAP at night. Appreciate pulmonology input. (3) Insulin dependent diabetes mellitus: Status: Chronic Assessment and Plan: A1c is 7.8. Significant insulin resistance with large home doses of 70/30 insulin. Blood sugars have been evaluated and are improved today in the 140-150s. Several prior readings in the 300s. Elevation likely in part related to steroids. Continue home insulin regimen of novolog 70/30 84 units in AM and 52 units in PM Monitor with accu-cheks and also cover with SSI. Hypoglycemic protocol Continue diabetic diet. Anticipate further improvement with weaning of steroids. (4) Hyponatremia: Code(s): E87.1 - Hypo-osmolality and hyponatremia Status: Acute Assessment and Plan: Resolved. Appears chronic based on review of previous labs. Na improved to 136 today. Monitor BMP. (5) Hypertension: Qualifiers: Hypertension type: essential hypertension Qualified Code(s): I10 - Essential (primary) hypertension Code(s): I10 - Essential (primary) hypertension Status: Chronic Assessment and Plan: Blood pressures reviewed and are variable. BP reviewed today and is stable at 143/64. Continue home regimen with Coreg, losartan, lasix. Monitor BP daily. (6) Sleep apnea: Qualifiers: Sleep apnea type: obstructive Qualified Code(s): G47.33 - Obstructive sleep apnea (adult) (pediatric) Code(s): G47.30 - Sleep apnea, unspecified Status: Chronic Assessment and Plan: Chronic. Continue CPAP at night and with naps. (7) Debility: Code(s): R53.81 - Other malaise Status: Chronic Assessment and Plan: Chronic physical debility, uses walker and wheelchair at [facility] assisted living. Appreciate PT/OT. Subjective Date/time seen: 03/15/20 14:05 Interval history: Date of service: 03/14/2020 Tom Rogers is a 74 year old female with a history of CAD, CHF, COPD, Crohn's disease, DM, HTN, MURPHY, and
[2020-03-15 19:08] LABS: Glucose Point of Care 177 (65-105)
[2020-03-15] MEDS: PERPHENAZINE 2 MG TABLET PO (20:58)
[2020-03-15] MEDS: PRAMIPEXOLE 0.5 MG TABLET 1 MG PO (20:58)
[2020-03-15 21:11] LABS: Glucose Point of Care 265 (65-105)
[2020-03-15] MEDS: DORNASE ALFA INH SOLN 1 MG/ML 2.5 ML AMP 2.5 MG INHALATION (21:23)
[2020-03-16] VITALS (20 sets, daily range): BP systolic 155–186; BP diastolic 68–85; PULSE 61–80; RESP 18–24; TEMP 36.1–36.7; O2SAT 92–98
[2020-03-16] MEDS: IPRATROPIUM BR 0.02% INH SOLN 0.5 MG/2.5 ML VIAL INHALATION ×4 (02:49→20:19)
[2020-03-16] MEDS: ALBUTEROL SULFATE NEB 2.5 MG/0.5 ML INH 5 MG INHALATION ×3 (02:49→13:17)
[2020-03-16 06:48] LABS: Hematocrit 46.7 % (37.0-47.0); Hemoglobin 15.7 g/dL (12.0-15.0); Mean Corpuscular HGB Conc 33.6 g/dl (32-36); Mean Corpuscular Volume 95.3 fl (80-100); Mean Platelet Volume 8.7 fl (7.4-10.4); Platelet Count Result 201 k/mm3 (150-375); Red Cell Distribution Width 12.3 % (11.5-14.5); White Blood Count 15.7 K/mm3 (4.5-10.0)
[2020-03-16 07:17] LABS: Anion Gap 4.99999 mmol/L (8-16); Blood Urea Nitrogen 30 mg/dL (7-17); Calcium 8.3 mg/dL (8.4-10.2); Carbon Dioxide > 40 mmol/L (22-30); Chloride 90 mmol/L (98-107); Estimated CRCL calculation 83 ml/min; Estimated Glomerular Filt Rate > 60; Glucose 151 mg/dL (65-105); Sodium 135 mmol/L (137-145)
[2020-03-16] MEDS: LEVOTHYROXINE SODIUM 50 MCG TABLET PO (07:22)
[2020-03-16 07:27] LABS: Glucose Point of Care 161 (65-105)
[2020-03-16] MEDS: DORNASE ALFA INH SOLN 1 MG/ML 2.5 ML AMP 2.5 MG INHALATION ×2 (08:02→20:19)
[2020-03-16] MEDS: MESALAMINE 250 MG CAP CR PO ×2 (08:49→17:03)
[2020-03-16] MEDS: ASPIRIN 81 MG CHEWABLE TABLET PO (08:49)
[2020-03-16] MEDS: LOSARTAN POTASSIUM 100 MG TABLET PO (08:49)
[2020-03-16] MEDS: carvediloL 25 MG TABLET PO ×2 (08:49→21:02)
[2020-03-16] MEDS: PARoxetine 10 MG TABLET 30 MG PO (08:50)
[2020-03-16] MEDS: MONTELUKAST SODIUM 10 MG TABLET PO (08:50)
[2020-03-16] MEDS: ENOXAPARIN 40 MG/0.4 ML SYRINGE SUB-Q (08:50)
[2020-03-16] MEDS: guaiFENesin 12 HR 600 MG TABCR PO ×2 (08:50→21:03)
[2020-03-16] MEDS: LORATADINE 10 MG TABLET PO (08:50)
[2020-03-16] MEDS: ATORVASTATIN 40 MG TABLET PO (08:50)
[2020-03-16] MEDS: methylPREDNISolone SOD SUCC 40 MG VIAL IV PUSH ×2 (08:50→21:02)
[2020-03-16] MEDS: FUROSEMIDE 40 MG TABLET PO (08:50)
[2020-03-16] MEDS: GABAPENTIN 300 MG CAPSULE 600 MG PO (08:50)
[2020-03-16] MEDS: CHOLESTYRAMINE LIGHT 4 GM POWD.PACK PO (08:51)
[2020-03-16] MEDS: azaTHIOprine 25 MG TABLET PO (08:53)
[2020-03-16] MEDS: BETAMETHASONE/CLOTRIMAZOLE CR 15 GM TUBE 1 APPLIC TOPICAL ×2 (08:54→17:03)
[2020-03-16] MEDS: TOLNAFTATE 1% POWDER 45 GM BTL 1 APPLIC TOPICAL ×2 (08:54→21:03)
--- NOTE | 2020-03-16 10:45 | PM.IMPN ---
Progress Note: A&P Assessment and Plan (1) Acute exacerbation of chronic obstructive airways disease: Code(s): J44.1 - Chronic obstructive pulmonary disease with (acute) exacerbation Status: Acute Assessment and Plan: Patient with COPD presented with worsening shortness of breath. CXR showed mild bibasilar airspace opacities atelectasis vs. PNA. Patient described that she choked on some pills in the day prior to admission. Repeat chest XR unchanged. ST eval noted no evidence of aspiration. She is maintaining adequate oxygen saturations on 1 L O2 per NC. She is established with pulmonology at [facility] (Lisa Sherman, MARCELA) and is not on chronic O2. Continue IV Solu-medrol q12h. Wean upon improvement. Monitor blood sugars. Mild leukocytosis secondary to steroids noted Continue albuterol and ipratropium Continue Pulmozyme, mucinex, cornet valve and incentive spirometry. Continue supplemental O2 as needed to keep saturations > 90%. CPAP at night and with naps. Appreciate pulomonology input. Continue Azithromycin an additional 5 days through 02/18/20 Influenza test pending (2) Respiratory failure: Qualifiers: Chronicity: acute on chronic Respiratory failure complication: hypoxia and hypercapnia Qualified Code(s): J96.21 - Acute and chronic respiratory failure with hypoxia; J96.22 - Acute and chronic respiratory failure with hypercapnia Code(s): J96.90 - Respiratory failure, unspecified, unspecified whether with hypoxia or hypercapnia Status: Acute Assessment and Plan: Acute respiratory failure with hypoxia and hypercapnia secondary to COPD exacerbation. Covid test negative on 03/02. Echo showed no evidence of pulmonary hypertension. Plan as above. Continue supplemental O2 and wean as tolerated. CPAP at night. Appreciate pulmonology input. (3) Insulin dependent diabetes mellitus: Status: Chronic Assessment and Plan: A1c is 7.8. Significant insulin resistance with large home doses of 70/30 insulin. Blood sugars have been evaluated and are improved today in the 160s. Several prior readings in the 300s. Elevation likely in part related to steroids. Continue home insulin regimen of novolog 70/30 84 units in AM and 52 units in PM Monitor with accu-cheks and also cover with SSI. Hypoglycemic protocol Continue diabetic diet. Anticipate further improvement with weaning of steroids. (4) Hyponatremia: Code(s): E87.1 - Hypo-osmolality and hyponatremia Status: Acute Assessment and Plan: Resolved. Appears chronic based on review of previous labs. Na improved to 135 today. Monitor BMP. (5) Hypertension: Qualifiers: Hypertension type: essential hypertension Qualified Code(s): I10 - Essential (primary) hypertension Code(s): I10 - Essential (primary) hypertension Status: Chronic Assessment and Plan: Blood pressures reviewed and are variable. BP reviewed today and is elevated at 184/77. Continue home regimen with Coreg, losartan, lasix. Add prn hydralazine for systolic BP >170. Monitor BP daily. (6) Sleep apnea: Qualifiers: Sleep apnea type: obstructive Qualified Code(s): G47.33 - Obstructive sleep apnea (adult) (pediatric) Code(s): G47.30 - Sleep apnea, unspecified Status: Chronic Assessment and Plan: Chronic. Continue CPAP at night and with naps. Stressed importance of wearing at all times when sleeping, even naps. (7) Debility: Code(s): R53.81 - Other malaise Status: Chronic Assessment and Plan: Chronic physical debility, uses walker and wheelchair at [facility] assisted living. Appreciate PT/OT. (8) Chest pain: Code(s): R07.9 - Chest pain, unspecified Status: Acute Assessment and Plan: Patient complained of substernal chest pressure this afternoon that lasted approximately 20 minutes and was relieved
[2020-03-16 11:41] LABS: Glucose Point of Care 240 (65-105)
[2020-03-16] MEDS: INSULIN ASPART (*BKC) 100 UNITS/ML SUB-Q ×2 (12:25→16:53)
--- NOTE | 2020-03-16 13:24 | PM.PNPUL ---
Progress Note: A&P Assessment and Plan (1) Acute exacerbation of chronic obstructive airways disease: Code(s): J44.1 - Chronic obstructive pulmonary disease with (acute) exacerbation Status: Acute Assessment and Plan: COPD exacerbation, immuncompromised state. - Nasopharyngeal swab for influenza A/B if not already done - Azithromycin 500 mg PO OD for five more days - continue albuterol but decrease dose to 2.5 mg Q6h from 5 mg - continue solumedrol at current dose of 40 mg IV bid and wean rapidly when improving Subjective Date/time seen: 03/16/20 13:24 Interval history: She's feeling a bit better today. She is napping this afternoon without CPAP. It's important for her put on her CPAP during napping. Review of Systems Review of Systems: All systems reviewed & are unremarkable except as noted in HPI and below Exam Const: General: cooperative, healthy appearing, comfortable, no acute distress, well developed, alert, awake and Physically active Nutritional Appearance: obese Orientation/consciousness: oriented to person, oriented to place, oriented to time and patient oriented x3 Limitations: physical limitations Neck: Neck: trachea midline and supple Resp: Effort & Inspection: able to speak in complete sentences Auscultation: clear to auscultation bilaterally, rhonchi (upper airway ) and other Cardio: Jugular venous distension: no JVD Rate: regular rate Rhythm: regular rhythm Heart sounds: S1 normal heart sound present and S2 normal heart sound present GI: Inspection: normal to inspection Auscultation: normal bowel sounds Neuro: General: oriented to person, oriented to place, oriented to time and patient oriented x3 Cognition (Neuro): normal cognition Speech: normal speech Gait exam (Neuro): Normal gait present Psych: Appearance: grossly normal and well kempt Mental Status: mental status grossly normal Objective Data Vital Signs Vital Signs: Vital Signs - 24 hr 03/15/20 14:29 03/15/20 15:23 03/15/20 20:00 Temperature 36.7 C Pulse Rate 62 68 Respiratory Rate 22 H 21 H Blood Pressure 156/75 H Pulse Oximetry 95 98 03/15/20 20:58 03/15/20 21:25 03/15/20 21:37 Temperature Pulse Rate 68 72 73 Respiratory Rate 20 20 Blood Pressure Pulse Oximetry 96 03/15/20 22:00 03/15/20 22:47 03/16/20 02:00 Temperature 36.1 C L 36.3 C L Pulse Rate 75 71 64 Respiratory Rate 18 17 18 Blood Pressure 153/82 H 155/68 H Pulse Oximetry 97 91 97 03/16/20 02:45 03/16/20 02:49 03/16/20 02:57 Temperature Pulse Rate 61 61 63 Respiratory Rate 24 H 24 H 18 Blood Pressure Pulse Oximetry 93 03/16/20 06:00 03/16/20 08:05 03/16/20 08:44 Temperature 36.1 C L Pulse Rate 68 70 73 Respiratory Rate 18 20 20 Blood Pressure 184/77 H Pulse Oximetry 97 93 03/16/20 08:45 03/16/20 08:49 03/16/20 10:38 Temperature 36.4 C L Pulse Rate 78 79 Respiratory Rate 20 Blood Pressure 156/85 H Pulse Oximetry 95 97 03/16/20 13:17 Temperature Pulse Rate 72 Respiratory Rate 20 Blood Pressure Pulse Oximetry Intake/Output Intake/Output: Intake & Output 03/13/20 03/14/20 03/15/20 03/16/20 23:59 23:59 23:59 23:59 Intake Total 1999 1700 1320 880 Output Total 455 960 0700 800 Balance 1130 1000 70 80 Meds/Results Medications: Active Medications Generic Name Dose Route Start Last Admin Trade Name Freq PRN Reason Stop Dose Admin Acetaminophen 325 mg 03/10/20 02:07 03/14/20 16:53 Acetaminophen 325 Mg Tablet PO 325 mg QID PRN Administration Pain (Scale Score 1-3) Hydrocodone Bitart/Acetaminophen 1 tab 03/10/20 02:07 03/15/20 22:48 Hydrocodone/Acetaminophen (*Crx) 7.5-325 Mg Tablet PO 1 tab Q6H PRN Administration Pain (Scale Score 7-10) Albuterol 5 mg 03/10/20 02:00 03/16/20 13:17 Albuterol Sulfate Neb 2.5 Mg/0.5 Ml Inh INHALATION 5 mg Q6HRT STACIE Administration Aspirin 81 mg 03/10/20 08:00 03/16/20 08:49
[2020-03-16] MEDS: NITROGLYCERIN SL 0.4 MG TABLET SUBLINGUAL ×3 (14:01→14:13)
[2020-03-16] MEDS: AZITHROMYCIN 250 MG TABLET 500 MG PO (14:01)
[2020-03-16] MEDS: ONDANSETRON INJ 4 MG/2 ML VIAL IV PUSH (14:02)
--- NOTE | 2020-03-16 14:12 | ECG_ITS ---
Measurements Intervals [place] Rate: 80 P: 46 NC: 142 QRS: 35 QRSD: 84 T: 107 QT: 383 QTc: 442 Interpretive Statements SINUS OR ECTOPIC ATRIAL RHYTHM NONSPECIFIC ST & T-WAVE ABNORMALITY- INF/HIGH LAT LEADS BASELINE ARTIFACT- I, II, III, AVR, AVL, AVF, V1-V6 BORDERLINE ECG Electronically Signed On 03-16-2020 14:59:12 [employer] by Julien Brown D.O.
[2020-03-16 14:54] LABS: Troponin I 0.029 ng/mL (0.000-0.034)
[2020-03-16 15:17] LABS: Influenza Control Positive
[2020-03-16] MEDS: hydrALAZINE HCL 20 MG/ML VIAL 10 MG IV PUSH (15:50)
[2020-03-16] MEDS: HYDROcodone/acetaminophen (*CRX) 7.5-325 MG TABLET 1 TAB PO (17:01)
[2020-03-16 19:35] LABS: Glucose Point of Care 229 (65-105)
[2020-03-16] MEDS: ALBUTEROL SULFATE NEB 2.5 MG/0.5 ML INH INHALATION (20:19)
[2020-03-16] MEDS: PRAMIPEXOLE 0.5 MG TABLET 1 MG PO (21:03)
[2020-03-16] MEDS: PERPHENAZINE 2 MG TABLET PO (21:03)
[2020-03-16 21:34] LABS: Glucose Point of Care 182 (65-105)
[2020-03-17] VITALS (18 sets, daily range): BP systolic 124–194; BP diastolic 64–84; PULSE 52–82; RESP 18–31; TEMP 36.1–36.7; O2SAT 84–100
[2020-03-17] MEDS: IPRATROPIUM BR 0.02% INH SOLN 0.5 MG/2.5 ML VIAL INHALATION ×3 (02:47→20:32)
[2020-03-17] MEDS: ALBUTEROL SULFATE NEB 2.5 MG/0.5 ML INH INHALATION ×3 (02:47→20:32)
[2020-03-17] MEDS: HYDROcodone/acetaminophen (*CRX) 7.5-325 MG TABLET 1 TAB PO ×2 (04:08→23:18)
[2020-03-17 05:30] LABS: Hematocrit 45.7 % (37.0-47.0); Hemoglobin 15.3 g/dL (12.0-15.0); Mean Corpuscular HGB Conc 33.5 g/dl (32-36); Mean Corpuscular Hemoglobin 31.7 pg (26-34); Mean Corpuscular Volume 94.6 fl (80-100); Mean Platelet Volume 8.7 fl (7.4-10.4); Platelet Count Result 205 k/mm3 (150-375); Red Blood Count 4.83 M/mm3 (4.2-5.4); Red Cell Distribution Width 11.9 % (11.5-14.5); White Blood Count 15.3 K/mm3 (4.5-10.0)
[2020-03-17 05:41] LABS: Anion Gap 4.99999 mmol/L (8-16); Blood Urea Nitrogen 26 mg/dL (7-17); Calcium 8.5 mg/dL (8.4-10.2); Carbon Dioxide > 40 mmol/L (22-30); Chloride 91 mmol/L (98-107); Estimated CRCL calculation 83 ml/min; Estimated Glomerular Filt Rate > 60; Glucose 154 mg/dL (65-105); Potassium 4.3 mmol/L (3.4-5.0); Sodium 136 mmol/L (137-145)
[2020-03-17] MEDS: LEVOTHYROXINE SODIUM 50 MCG TABLET PO (06:38)
--- NOTE | 2020-03-17 08:02 | PCNWS ---
Weekly nutritional screen. Patient is tolerating current diet with adequate intake. No weight loss reported. No nutritional needs at this time.
[2020-03-17] MEDS: LORATADINE 10 MG TABLET PO (08:27)
[2020-03-17] MEDS: MESALAMINE 250 MG CAP CR PO ×2 (08:27→16:37)
[2020-03-17] MEDS: guaiFENesin 12 HR 600 MG TABCR PO ×2 (08:27→21:18)
[2020-03-17] MEDS: carvediloL 25 MG TABLET PO ×2 (08:27→21:17)
[2020-03-17] MEDS: AZITHROMYCIN 250 MG TABLET 500 MG PO (08:27)
[2020-03-17] MEDS: ASPIRIN 81 MG CHEWABLE TABLET PO (08:27)
[2020-03-17] MEDS: LOSARTAN POTASSIUM 100 MG TABLET PO (08:28)
[2020-03-17] MEDS: GABAPENTIN 300 MG CAPSULE 600 MG PO (08:28)
[2020-03-17] MEDS: PARoxetine 10 MG TABLET 30 MG PO (08:28)
[2020-03-17] MEDS: methylPREDNISolone SOD SUCC 40 MG VIAL IV PUSH ×2 (08:28→21:18)
[2020-03-17] MEDS: ENOXAPARIN 40 MG/0.4 ML SYRINGE SUB-Q (08:28)
[2020-03-17] MEDS: ATORVASTATIN 40 MG TABLET PO (08:28)
[2020-03-17] MEDS: MONTELUKAST SODIUM 10 MG TABLET PO (08:28)
[2020-03-17] MEDS: FUROSEMIDE 40 MG TABLET PO (08:28)
[2020-03-17] MEDS: BETAMETHASONE/CLOTRIMAZOLE CR 15 GM TUBE 1 APPLIC TOPICAL ×2 (08:28→16:36)
[2020-03-17] MEDS: azaTHIOprine 25 MG TABLET PO (08:28)
[2020-03-17] MEDS: TOLNAFTATE 1% POWDER 45 GM BTL 1 APPLIC TOPICAL ×2 (08:29→21:17)
[2020-03-17 09:25] LABS: Glucose Point of Care 165 (65-105)
[2020-03-17 09:41] LABS: Troponin I 0.048 ng/mL (0.000-0.034)
[2020-03-17] MEDS: CHOLESTYRAMINE LIGHT 4 GM POWD.PACK PO (09:46)
--- NOTE | 2020-03-17 10:56 | PM.IMPN ---
Subjective Date/time seen: 03/17/20 10:56 Interval history: Date of service: 03/17/2020 Tom Rogers is a 74 year old female with a history of CAD, CHF, COPD, Crohn's disease, DM, HTN, MURPHY, and bipolar disorder who is seen in follow up for COPD exacerbation. today she reports that she feels better she came in but still does feel well. She complains of feeling short of breath. She is coughing occasionally with no sputum production. She still feels that she is wheezing, though no wheezes are audible. appetite has been good. She is ambulating with assistance. Denies nausea, vomiting, fever, chills, dizziness, lightheadedness. she has not had any further episodes of chest pain. Review of Systems Review of Systems: All systems reviewed & are unremarkable except as noted in HPI and below Exam Narrative: Exam Narrative: Ms. Rogers is an obese 74-year-old female who is lying supine in bed. She appears comfortable and is in NARD. HR 52, BP 124/84, R 21, T 97.0?, 100% on 1 L Neuro: awake, alert and oriented x4, speech clear, no focal neuro deficits noted HEENMT: normocephalic, atraumatic, EOMI, sclerae anicteric, moist oral mucosa, tongue midline, nares patent Neck: supple, no lymphadenopathy, large circumference Respiratory: respirations are somewhat shallow with notable abdominal rise and fall, diminished breath sounds of anterior and posterior lung barrios, diffuse rhonchi, no crackles or wheezes, difficult to auscultate due to body habitus, nonlabored breathing Cardio: regular rate, regular rhythm with S1-S2 Abdomen: obese, normoactive bowel sounds, soft, nontender to palpation, no rigidity or guarding Extremities: no edema, erythema, cyanosis, clubbing, or tenderness to palpation, DP pulses 2+ bilaterally Skin: ecchymosis on right face/chin, no rashes or lesions, warm and dry Psych: appropriate mood and affect, judgment and insight intact Objective Data Vital Signs Vital Signs: Vital Signs - 24 hr 03/16/20 13:17 03/16/20 13:27 03/16/20 14:00 Temperature 97.0 F L Pulse Rate 72 72 80 Respiratory Rate 20 20 24 H Blood Pressure 186/80 H Pulse Oximetry 94 03/16/20 16:00 03/16/20 18:00 03/16/20 20:19 Temperature 97.1 F L Pulse Rate 80 77 76 Respiratory Rate 24 H Blood Pressure 169/68 H Pulse Oximetry 96 03/16/20 20:34 03/16/20 20:35 03/16/20 21:02 Temperature Pulse Rate 72 80 Respiratory Rate 20 Blood Pressure Pulse Oximetry 92 03/16/20 22:00 03/17/20 02:00 03/17/20 02:48 Temperature 98.0 F 97.9 F Pulse Rate 74 79 76 Respiratory Rate 20 22 H 20 Blood Pressure 161/70 H 182/84 H Pulse Oximetry 98 100 03/17/20 02:57 03/17/20 06:00 03/17/20 08:25 Temperature 97.0 F L Pulse Rate 72 52 L Respiratory Rate 20 21 H Blood Pressure 124/84 Pulse Oximetry 100 94 03/17/20 08:27 03/17/20 09:29 03/17/20 09:59 Temperature 97.4 F L Pulse Rate 75 69 Respiratory Rate 22 H Blood Pressure 150/72 H Pulse Oximetry 89 L 96 Intake/Output Intake/Output: Intake & Output 03/14/20 03/15/20 03/16/20 03/17/20 23:59 23:59 23:59 23:59 Intake Total 1700 1320 2240 920 Output Total 700 1250 800 900 Balance 1000 70 1440 20 Meds/Results Medications: Active Medications Generic Name Dose Route Start Last Admin Trade Name Freq PRN Reason Stop Dose Admin Acetaminophen 325 mg 03/10/20 02:07 03/14/20 16:53 Acetaminophen 325 Mg Tablet PO 325 mg QID PRN Administration Pain (Scale Score 1-3) Hydrocodone Bitart/Acetaminophen 1 tab 03/10/20 02:07 03/17/20 04:08 Hydrocodone/Acetaminophen (*Crx) 7.5-325 Mg Tablet PO 1 tab Q6H PRN Administration Pain (Scale Score 7-10) Albuterol 2.5 mg 03/16/20 14:00 03/17/20 02:47 Albuterol Sulfate Neb 2.5 Mg/0.5 Ml Inh INHALATION 2.5 mg Q6HRT STACIE Administration Aspirin 81 mg 03/10/20 08:00 03/17/20 08:27 Aspirin 81 Mg Chewable Tablet PO 81 mg DAILY@0800 [facility] Administration
[2020-03-17 12:58] LABS: Glucose Point of Care 142 (65-105)
--- NOTE | 2020-03-17 15:01 | PM.IMPN ---
Progress Note: A&P Assessment and Plan (1) Acute exacerbation of chronic obstructive airways disease: Code(s): J44.1 - Chronic obstructive pulmonary disease with (acute) exacerbation Status: Acute Assessment and Plan: Patient with COPD presented with worsening shortness of breath. CXR showed mild bibasilar airspace opacities atelectasis vs. PNA. Patient described that she choked on some pills in the day prior to admission. Repeat chest XR unchanged. ST eval noted no evidence of aspiration. She is maintaining adequate oxygen saturations on 1 L O2 per NC. She is established with pulmonology at [facility] (Lisa Sherman, MARCELA) and is not on chronic O2. Continue IV Solu-medrol q12h. Plan to transition to PO prednisone tomorrow. Monitor blood sugars. Mild leukocytosis secondary to steroids noted Continue albuterol and ipratropium Continue mucinex, cornet valve and incentive spirometry. Continue supplemental O2 as needed to keep saturations > 90%. CPAP at night and with naps. Appreciate pulomonology input. Continue Azithromycin an additional 5 days through 03/20/20 Influenza negative (2) Respiratory failure: Qualifiers: Chronicity: acute on chronic Respiratory failure complication: hypoxia and hypercapnia Qualified Code(s): J96.21 - Acute and chronic respiratory failure with hypoxia; J96.22 - Acute and chronic respiratory failure with hypercapnia Code(s): J96.90 - Respiratory failure, unspecified, unspecified whether with hypoxia or hypercapnia Status: Acute Assessment and Plan: Acute respiratory failure with hypoxia and hypercapnia secondary to COPD exacerbation. Covid test negative on 03/02. Echo showed no evidence of pulmonary hypertension. Plan as above. Continue supplemental O2 and wean as tolerated. CPAP at night. Appreciate pulmonology input. Home O2 eval tomorrow. Patient still requiring 1L O2. (3) Insulin dependent diabetes mellitus: Status: Chronic Assessment and Plan: A1c is 7.8. Significant insulin resistance with large home doses of 70/30 insulin. Blood sugars have been evaluated and are stable in the 140-160s. Several prior readings in the 300s. Elevation likely in part related to steroids. Continue home insulin regimen of novolog 70/30 84 units in AM and 52 units in PM Monitor with accu-cheks and also cover with SSI. Hypoglycemic protocol Continue diabetic diet. Anticipate further improvement with weaning of steroids. (4) Hyponatremia: Code(s): E87.1 - Hypo-osmolality and hyponatremia Status: Acute Assessment and Plan: Resolved. Appears chronic based on review of previous labs. Na improved to 136 today. Monitor BMP. (5) Hypertension: Qualifiers: Hypertension type: essential hypertension Qualified Code(s): I10 - Essential (primary) hypertension Code(s): I10 - Essential (primary) hypertension Status: Chronic Assessment and Plan: Blood pressures reviewed and are variable. BP reviewed today and is stable at 124/84. Continue home regimen with Coreg, losartan, lasix. Prn hydralazine for systolic BP >170. Monitor BP daily. (6) Sleep apnea: Qualifiers: Sleep apnea type: obstructive Qualified Code(s): G47.33 - Obstructive sleep apnea (adult) (pediatric) Code(s): G47.30 - Sleep apnea, unspecified Status: Chronic Assessment and Plan: Chronic. Continue CPAP at night and with naps. Stressed importance of wearing at all times when sleeping, even naps. (7) Debility: Code(s): R53.81 - Other malaise Status: Chronic Assessment and Plan: Chronic physical debility, uses walker and wheelchair at [facility] assisted living. Appreciate PT/OT. (8) CAD (coronary artery disease): Code(s): I25.10 - Atherosclerotic heart disease of [place] coronary artery without angina pectoris Status: Acute Assessmen
[2020-03-17 17:13] LABS: Glucose Point of Care 217 (65-105)
[2020-03-17] MEDS: INSULIN ASPART (*BKC) 100 UNITS/ML SUB-Q (17:26)
[2020-03-17] MEDS: DORNASE ALFA INH SOLN 1 MG/ML 2.5 ML AMP 2.5 MG INHALATION (20:32)
[2020-03-17] MEDS: PRAMIPEXOLE 0.5 MG TABLET 1 MG PO (21:17)
[2020-03-17] MEDS: PERPHENAZINE 2 MG TABLET PO (21:17)
[2020-03-17 23:29] LABS: Glucose Point of Care 189 (65-105)
[2020-03-18] VITALS (22 sets, daily range): BP systolic 120–153; BP diastolic 51–76; PULSE 65–106; RESP 19–24; TEMP 36.1–36.6; O2SAT 87–100
[2020-03-18] MEDS: IPRATROPIUM BR 0.02% INH SOLN 0.5 MG/2.5 ML VIAL INHALATION ×5 (02:52→20:40)
[2020-03-18] MEDS: ALBUTEROL SULFATE NEB 2.5 MG/0.5 ML INH INHALATION ×6 (02:52→20:40)
[2020-03-18 04:46] LABS: IFOB Positive Control Positive; Immunochemical Fecal Occult Bl Negative (N)
[2020-03-18 05:32] LABS: Hematocrit 38.5 % (37.0-47.0); Hemoglobin 12.5 g/dL (12.0-15.0); Mean Corpuscular HGB Conc 32.5 g/dl (32-36); Mean Corpuscular Volume 98.5 fl (80-100); Mean Platelet Volume 8.9 fl (7.4-10.4); Platelet Count Result 212 k/mm3 (150-375); Red Blood Count 3.91 M/mm3 (4.2-5.4); Red Cell Distribution Width 12.3 % (11.5-14.5); White Blood Count 19.1 K/mm3 (4.5-10.0)
[2020-03-18 05:54] LABS: Anion Gap 3.99999 mmol/L (8-16); Blood Urea Nitrogen 46 mg/dL (7-17); Carbon Dioxide > 40 mmol/L (22-30); Chloride 90 mmol/L (98-107); Estimated CRCL calculation 73 ml/min; Estimated Glomerular Filt Rate > 60; Glucose 217 mg/dL (65-105); Potassium 4.7 mmol/L (3.4-5.0); Sodium 134 mmol/L (137-145)
[2020-03-18] MEDS: LEVOTHYROXINE SODIUM 50 MCG TABLET PO (06:51)
[2020-03-18 07:45] LABS: Glucose Point of Care 221 (65-105)
[2020-03-18] MEDS: predniSONE 20 MG TABLET 60 MG PO (08:23)
[2020-03-18] MEDS: ASPIRIN 81 MG CHEWABLE TABLET PO (08:23)
[2020-03-18] MEDS: ATORVASTATIN 40 MG TABLET PO (08:24)
[2020-03-18] MEDS: azaTHIOprine 25 MG TABLET PO (08:24)
[2020-03-18] MEDS: CHOLESTYRAMINE LIGHT 4 GM POWD.PACK PO (08:25)
[2020-03-18] MEDS: ENOXAPARIN 40 MG/0.4 ML SYRINGE SUB-Q (08:25)
[2020-03-18] MEDS: FUROSEMIDE 40 MG TABLET PO (08:26)
[2020-03-18] MEDS: ERGOCALCIFEROL 50,000 UNIT CAPSULE 50000 UNITS PO (08:26)
[2020-03-18] MEDS: GABAPENTIN 300 MG CAPSULE 600 MG PO (08:26)
[2020-03-18] MEDS: LOSARTAN POTASSIUM 100 MG TABLET PO (08:27)
[2020-03-18] MEDS: guaiFENesin 12 HR 600 MG TABCR PO ×2 (08:27→21:10)
[2020-03-18] MEDS: LORATADINE 10 MG TABLET PO (08:27)
[2020-03-18] MEDS: MESALAMINE 250 MG CAP CR PO ×2 (08:27→18:03)
[2020-03-18] MEDS: PARoxetine 10 MG TABLET 30 MG PO (08:29)
[2020-03-18] MEDS: MONTELUKAST SODIUM 10 MG TABLET PO (08:29)
[2020-03-18] MEDS: carvediloL 25 MG TABLET PO ×2 (08:29→21:10)
[2020-03-18] MEDS: AZITHROMYCIN 250 MG TABLET 500 MG PO (08:30)
[2020-03-18] MEDS: BETAMETHASONE/CLOTRIMAZOLE CR 15 GM TUBE 1 APPLIC TOPICAL ×2 (08:31→18:03)
[2020-03-18] MEDS: TOLNAFTATE 1% POWDER 45 GM BTL 1 APPLIC TOPICAL ×2 (08:34→21:12)
[2020-03-18] MEDS: HYDROcodone/acetaminophen (*CRX) 7.5-325 MG TABLET 1 TAB PO ×2 (09:13→21:16)
[2020-03-18] MEDS: INSULIN ASPART (*BKC) 100 UNITS/ML SUB-Q ×2 (09:18→11:45)
[2020-03-18] MEDS: DORNASE ALFA INH SOLN 1 MG/ML 2.5 ML AMP 2.5 MG INHALATION ×3 (09:30→20:44)
--- NOTE | 2020-03-18 10:02 | PM.PNPUL ---
Progress Note: A&P Assessment and Plan (1) Acute exacerbation of chronic obstructive airways disease: Code(s): J44.1 - Chronic obstructive pulmonary disease with (acute) exacerbation Status: Acute Assessment and Plan: COPD exacerbation, immuncompromised state.Improving and can be discharged home or to rehab tomorrow from pulmonary perspective. - Nasopharyngeal swab for influenza A/B negtive - Azithromycin 500 mg PO OD for five more days - resume anoro ellipta 62.5/25 mcg 1 puff daily upon discharge - f/u with Lisa Rodríguez in 2 weeks at [facility]. Subjective Date/time seen: 03/18/20 10:02 Interval history: Feeling better. Weak but recovering. May need to go to rehab before going to assisted living. Review of Systems Review of Systems: All systems reviewed & are unremarkable except as noted in HPI and below Exam Const: General: cooperative, healthy appearing, comfortable, no acute distress, well developed, alert, awake and Physically active Nutritional Appearance: obese Orientation/consciousness: oriented to person, oriented to place, oriented to time and patient oriented x3 Limitations: physical limitations Neck: Neck: trachea midline and supple Resp: Effort & Inspection: able to speak in complete sentences Auscultation: clear to auscultation bilaterally, rhonchi (upper airway ) and other Cardio: Jugular venous distension: no JVD Rate: regular rate Rhythm: regular rhythm Heart sounds: S1 normal heart sound present and S2 normal heart sound present GI: Inspection: normal to inspection Auscultation: normal bowel sounds Neuro: General: oriented to person, oriented to place, oriented to time and patient oriented x3 Cognition (Neuro): normal cognition Speech: normal speech Gait exam (Neuro): Normal gait present Psych: Appearance: grossly normal and well kempt Mental Status: mental status grossly normal Objective Data Vital Signs Vital Signs: Vital Signs - 24 hr 03/17/20 13:45 03/17/20 14:10 03/17/20 14:28 Temperature 36.5 C Pulse Rate 64 64 69 Respiratory Rate 24 H 18 18 Blood Pressure 160/68 H Pulse Oximetry 93 03/17/20 18:17 03/17/20 18:37 03/17/20 20:34 Temperature 36.4 C L Pulse Rate 82 78 73 Respiratory Rate 31 H 26 H 20 Blood Pressure 190/72 H 160/64 H Pulse Oximetry 92 92 96 03/17/20 20:46 03/17/20 21:17 03/17/20 22:00 Temperature 36.7 C Pulse Rate 70 70 76 Respiratory Rate 28 H 20 Blood Pressure 153/73 H Pulse Oximetry 98 03/17/20 23:27 03/18/20 02:00 03/18/20 02:53 Temperature 36.1 C L Pulse Rate 76 70 68 Respiratory Rate 25 H 20 20 Blood Pressure 120/51 L Pulse Oximetry 91 98 03/18/20 02:59 03/18/20 03:00 03/18/20 06:00 Temperature 36.4 C Pulse Rate 71 69 76 Respiratory Rate 20 19 21 H Blood Pressure 129/65 Pulse Oximetry 96 100 03/18/20 08:29 03/18/20 09:30 03/18/20 09:48 Temperature Pulse Rate 76 73 75 Respiratory Rate 20 20 Blood Pressure Pulse Oximetry 93 Intake/Output Intake/Output: Intake & Output 03/15/20 03/16/20 03/17/20 03/18/20 23:59 23:59 23:59 23:59 Intake Total 1320 2240 2130 700 Output Total 1250 800 900 800 Balance 70 1440 1230 -100 Meds/Results Medications: Active Medications Generic Name Dose Route Start Last Admin Trade Name Freq PRN Reason Stop Dose Admin Acetaminophen 325 mg 03/10/20 02:07 03/14/20 16:53 Acetaminophen 325 Mg Tablet PO 325 mg QID PRN Administration Pain (Scale Score 1-3) Hydrocodone Bitart/Acetaminophen 1 tab 03/10/20 02:07 03/18/20 09:13 Hydrocodone/Acetaminophen (*Crx) 7.5-325 Mg Tablet PO 1 tab Q6H PRN Administration Pain (Scale Score 7-10) Albuterol 2.5 mg 03/16/20 14:00 03/18/20 09:31 Albuterol Sulfate Neb 2.5 Mg/0.5 Ml Inh INHALATION 2.5 mg Q6HRT STACIE Administration Aspirin 81 mg 03/10/20 08:00 03/18/20 08:23 Aspirin 81 Mg Chewable Tablet PO 81 mg DAILY@0800 STACIE Administration Atorvastati
[2020-03-18 11:46] LABS: Glucose Point of Care 249 (65-105)
--- NOTE | 2020-03-18 13:02 | PC.NURSE ---
Patient with dark red, tarry stools noted on bedpan. Called and notified Fernanda MARTIN of same.
--- NOTE | 2020-03-18 14:32 | PM.IMPN ---
Progress Note: A&P Assessment and Plan (1) Acute exacerbation of chronic obstructive airways disease: Code(s): J44.1 - Chronic obstructive pulmonary disease with (acute) exacerbation Status: Acute Assessment and Plan: Patient with COPD presented with worsening shortness of breath. CXR showed mild bibasilar airspace opacities atelectasis vs. PNA. Patient described that she choked on some pills in the day prior to admission. Repeat chest XR unchanged. ST eval noted no evidence of aspiration. She is maintaining adequate oxygen saturations on 1 L O2 per NC. She is established with pulmonology at [place] (Lisa Sherman, MARCELA) and is not on chronic O2. Continue PO prednisone. Monitor blood sugars. Mild leukocytosis secondary to steroids noted Continue albuterol and ipratropium Continue mucinex, cornet valve and incentive spirometry. Continue supplemental O2 as needed to keep saturations > 90%. CPAP at night and with naps. Appreciate pulomonology input. Continue Azithromycin an additional 5 days through 03/20/20. She completed a 5 day course prior on 03/14. Influenza negative (2) Respiratory failure: Qualifiers: Chronicity: acute on chronic Respiratory failure complication: hypoxia and hypercapnia Qualified Code(s): J96.21 - Acute and chronic respiratory failure with hypoxia; J96.22 - Acute and chronic respiratory failure with hypercapnia Code(s): J96.90 - Respiratory failure, unspecified, unspecified whether with hypoxia or hypercapnia Status: Acute Assessment and Plan: Acute respiratory failure with hypoxia and hypercapnia secondary to COPD exacerbation. Covid test negative on 03/02. Echo showed no evidence of pulmonary hypertension. Plan as above. Continue supplemental O2 and wean as tolerated. CPAP at night. Appreciate pulmonology input. Home O2 eval tomorrow. Patient still requiring 1L O2. (3) Insulin dependent diabetes mellitus: Status: Chronic Assessment and Plan: A1c is 7.8. Significant insulin resistance with large home doses of 70/30 insulin. Blood sugars have been evaluated and elevated in the 200s today. Several prior readings in the 300s. Elevation likely in part related to steroids. Continue home insulin regimen of novolog 70/30 84 units in AM and 52 units in PM Monitor with accu-cheks and also cover with SSI. Hypoglycemic protocol Continue diabetic diet. Anticipate further improvement with weaning of steroids. (4) Hyponatremia: Code(s): E87.1 - Hypo-osmolality and hyponatremia Status: Acute Assessment and Plan: Appears chronic based on review of previous labs. Na 134 today. Monitor BMP. (5) Hypertension: Qualifiers: Hypertension type: essential hypertension Qualified Code(s): I10 - Essential (primary) hypertension Code(s): I10 - Essential (primary) hypertension Status: Chronic Assessment and Plan: Blood pressures reviewed and are variable. BP reviewed today and is stable at 129/65. Continue home regimen with Coreg, losartan, lasix. Prn hydralazine for systolic BP >170. Monitor BP daily. (6) Sleep apnea: Qualifiers: Sleep apnea type: obstructive Qualified Code(s): G47.33 - Obstructive sleep apnea (adult) (pediatric) Code(s): G47.30 - Sleep apnea, unspecified Status: Chronic Assessment and Plan: Chronic. Continue CPAP at night and with naps. Stressed importance of wearing at all times when sleeping, even naps. (7) Debility: Code(s): R53.81 - Other malaise Status: Chronic Assessment and Plan: Chronic physical debility, uses walker and wheelchair at [facility] assisted living. Appreciate PT/OT. (8) CAD (coronary artery disease): Code(s): I25.10 - Atherosclerotic heart disease of [place] coronary artery without angina pectoris Status: Acute Assessment and Plan: She has a hist
[2020-03-18 16:25] LABS: IFOB Positive Control Positive; Immunochemical Fecal Occult Bl Positive (N)
--- NOTE | 2020-03-18 16:39 | HOMEO2EVAL ---
Home Oxygen Evaluation RC: Home Oxygen (O2) Evaluation Start: 03/18/20 15:47 Freq: ONCE Status: Active Protocol: RPE Activity Type Activity Date Activity User E-Sign Co-Sign Detail Recorded Client Recorded Date Recorded By Document 03/18/20 16:15 OBIE [id number] 03/18/20 16:39 OBIE Document 03/18/20 16:17 OBIE [id number] 03/18/20 16:39 OBIE Document 03/18/20 16:20 OBIE [id number] 03/18/20 16:39 OBIE Document 03/18/20 16:30 OBIE [email or web address] 03/18/20 16:39 OBIE 03/18/20 03/18/20 03/18/20 16:15 16:17 16:20 Home O2 Evaluation Test Phase Resting Resting Exercise Oxygen Delivery Room Air Nasal Cannula Nasal Cannula Oxygen Flow Rate (L/min) 1 1 Pulse Oximetry (90-100 %) 87 L 93 96 Home Oxygen Evaluation Comments Treatment Charges O2 Evaluation 03/18/20 16:30 Home O2 Evaluation Test Phase Resting Oxygen Delivery Nasal Cannula Oxygen Flow Rate (L/min) 1 Pulse Oximetry (90-100 %) 94 Home Oxygen Evaluation Comments PT REQUIRES 1 L AT REST AND WITH EXERTION Treatment Charges
[2020-03-18 17:45] LABS: Glucose Point of Care 178 (65-105)
[2020-03-18 19:53] LABS: SARS-CoV-2 RNA PCR Negative
[2020-03-18] MEDS: PANTOPRAZOLE 40 MG TABLET PO (21:09)
[2020-03-18] MEDS: PRAMIPEXOLE 0.5 MG TABLET 1 MG PO (21:10)
[2020-03-18] MEDS: PERPHENAZINE 2 MG TABLET PO (21:10)
[2020-03-18 22:06] LABS: Glucose Point of Care 169 (65-105)
[2020-03-19] VITALS (18 sets, daily range): BP systolic 105–151; BP diastolic 36–65; PULSE 67–90; RESP 16–24; TEMP 36.1–36.8; O2SAT 92–100
[2020-03-19] MEDS: ALBUTEROL SULFATE NEB 2.5 MG/0.5 ML INH INHALATION ×3 (02:24→19:05)
[2020-03-19] MEDS: IPRATROPIUM BR 0.02% INH SOLN 0.5 MG/2.5 ML VIAL INHALATION ×3 (02:24→19:05)
[2020-03-19 05:36] LABS: Basophils Absolute Auto 0.2 K/mm3 (0.0-0.1); Basophils Percent Auto 0.7 % (0.2-1.2); Eosinophils Percent Auto 0.2 % (0-4.4); Hematocrit 31.4 % (37.0-47.0); Hemoglobin 10.3 g/dL (12.0-15.0); Immature Granulocyte Absolute 1.12 K/mm3 (0.00-0.031); Immature Granulocyte Percent A 4.9 % (0-0.5); Lymphocytes Absolute Auto 5.04 K/mm3 (0.9-3.2); Mean Corpuscular HGB Conc 32.8 g/dl (32-36); Mean Corpuscular Hemoglobin 31.5 pg (26-34); Monocytes Absolute Auto 2.9 K/mm3 (0.1-0.6); Monocytes Percent Auto 12.4 % (2.6-8.5); Neutrophils Absolute Auto 13.8 K/mm3 (1.3-6.7); Neutrophils Percent Auto 59.8 % (45.5-73.1); Nucleated Red Blood Cells Perc 0.2 % (0.0-0.2); Platelet Count Result 215 k/mm3 (150-375); Red Blood Count 3.27 M/mm3 (4.2-5.4); Red Cell Distribution Width 12.4 % (11.5-14.5)
[2020-03-19 05:52] LABS: Anion Gap 1.99999 mmol/L (8-16); Blood Urea Nitrogen 54 mg/dL (7-17); Calcium 8.3 mg/dL (8.4-10.2); Carbon Dioxide > 40 mmol/L (22-30); Chloride 93 mmol/L (98-107); Estimated CRCL calculation 59 ml/min; Estimated Glomerular Filt Rate 55; Glucose 80 mg/dL (65-105); Sodium 135 mmol/L (137-145)
[2020-03-19 07:37] LABS: Glucose Point of Care 77 (65-105)
[2020-03-19] MEDS: LEVOTHYROXINE SODIUM 50 MCG TABLET PO (08:24)
[2020-03-19] MEDS: GABAPENTIN 300 MG CAPSULE 600 MG PO (08:25)
[2020-03-19] MEDS: predniSONE 20 MG TABLET 60 MG PO (08:25)
[2020-03-19] MEDS: PARoxetine 10 MG TABLET 30 MG PO (08:25)
[2020-03-19] MEDS: MONTELUKAST SODIUM 10 MG TABLET PO (08:25)
[2020-03-19] MEDS: PANTOPRAZOLE 40 MG TABLET PO (08:25)
[2020-03-19] MEDS: MESALAMINE 250 MG CAP CR PO ×2 (08:26→17:44)
[2020-03-19] MEDS: guaiFENesin 12 HR 600 MG TABCR PO ×2 (08:26→21:12)
[2020-03-19] MEDS: FUROSEMIDE 40 MG TABLET PO (08:26)
[2020-03-19] MEDS: LORATADINE 10 MG TABLET PO (08:26)
[2020-03-19] MEDS: azaTHIOprine 25 MG TABLET PO (08:26)
[2020-03-19] MEDS: carvediloL 25 MG TABLET PO ×2 (08:26→21:12)
[2020-03-19] MEDS: CHOLESTYRAMINE LIGHT 4 GM POWD.PACK PO (08:26)
[2020-03-19] MEDS: ATORVASTATIN 40 MG TABLET PO (08:26)
[2020-03-19] MEDS: LOSARTAN POTASSIUM 100 MG TABLET PO (08:26)
[2020-03-19] MEDS: AZITHROMYCIN 250 MG TABLET 500 MG PO (08:26)
[2020-03-19] MEDS: TOLNAFTATE 1% POWDER 45 GM BTL 1 APPLIC TOPICAL ×2 (08:27→21:14)
[2020-03-19] MEDS: BETAMETHASONE/CLOTRIMAZOLE CR 15 GM TUBE 1 APPLIC TOPICAL ×2 (08:27→17:43)
--- NOTE | 2020-03-19 09:47 | PCRCNOTE ---
WILL BRING TANK TO ROOM FOR POSSIBLE DISCHARGE HOME. SETTING UP WITH [facility]
[2020-03-19] MEDS: DORNASE ALFA INH SOLN 1 MG/ML 2.5 ML AMP 2.5 MG INHALATION ×2 (09:55→19:06)
--- NOTE | 2020-03-19 09:56 | WPDANESEPPF ---
Anes - Initial Pre Proc Eval Procedure: Operation Date: 03/19/20 15:15 Proposed Procedures p Esophagogastroduodenoscopy - Jose A Estes MD Date/Time: 03/19/20 09:56 Surgeon: Fernanda Murcia PA-C Pre Op Diagnosis: COPD exacerbation, Patient Data Age: 74 Gender: F Height: 1.65 m Weight: 124 kg Last Vital Signs Temp 36.1 C L 03/19/20 06:00 Pulse 82 03/19/20 08:26 Resp 24 H 03/19/20 06:00 BP 120/61 03/19/20 06:00 Pulse Ox 100 03/19/20 06:00 Allergies Allergy/AdvReac Type Severity Reaction Status Date / Time NSAIDS (Non-Steroidal Allergy Mild ULCERS Verified 03/19/20 13:58 Anti-Inflamma carbamazepine Allergy Unknown Unknown Verified 03/19/20 13:58 Home Medications Medication Instructions Recorded Confirmed Type Anoro Ellipta 1 inh INHALATION DAILY 04/27/19 03/10/20 History Cholestyramine Light 1 g PO DAILY 04/27/19 03/10/20 History acetaminophen 325 mg PO QID PRN 04/27/19 03/10/20 History aspirin 81 mg PO DAILY 04/27/19 03/10/20 History atorvastatin 40 mg PO DAILY 04/27/19 03/10/20 History azathioprine 25 mg PO DAILY 04/27/19 03/10/20 History carvedilol 25 mg PO Q12H 04/27/19 03/10/20 History clotrimazole-betamethasone 1 applic TOPICAL BID PRN 04/27/19 03/10/20 History gabapentin 600 mg PO DAILY 04/27/19 03/10/20 History insulin asp prt-insulin aspart 52 unit SUBCUT 1700 04/27/19 03/10/20 History [Novolog Mix 70-30FlexPen U-100] insulin asp prt-insulin aspart 84 unit SUBCUT DAILY 04/27/19 03/10/20 History [Novolog Mix 70-30FlexPen U-100] levothyroxine [Synthroid] 50 mcg PO DAILY 04/27/19 03/10/20 History losartan 100 mg PO DAILY 04/27/19 03/10/20 History mesalamine [Apriso] 0.375 g PO BID 04/27/19 03/10/20 History montelukast 10 mg PO DAILY 04/27/19 03/10/20 History nitroglycerin 0.4 mg SUBLINGUAL Q5-15M PRN 04/27/19 03/10/20 History paroxetine HCl 30 mg PO DAILY 04/27/19 03/10/20 History perphenazine 2 mg PO HS 04/27/19 03/10/20 History pramipexole 1 mg PO DAILY 04/27/19 03/10/20 History tramadol 50 mg PO TID PRN 04/27/19 03/10/20 History furosemide 40 mg PO DAILY #30 tablet 05/05/19 03/10/20 Rx hydrocodone-acetaminophen 1 tablet PO Q6H PRN #15 tablet 05/05/19 03/10/20 Rx cetirizine 10 mg PO DAILY 08/27/19 03/10/20 History ergocalciferol (vitamin D2) 1,250 mcg PO 2XW 08/27/19 03/10/20 History [Vitamin D2] tolnaftate 1 applic TOPICAL Q12HR #45 gm 08/30/19 03/10/20 Rx albuterol 90 mcg INHALATION Q4-5H PRN 03/10/20 03/10/20 History albuterol sulfate 2.5 mg INHALATION TID 03/10/20 03/10/20 History Laboratory Tests 03/18/20 03/18/20 03/18/20 02:23 11:41 15:40 WBC RBC Hgb Hct MCV MCH MCHC RDW Plt Count MPV Immature Gran % (Auto) Neut % (Auto) Lymph % (Auto) [place] % (Auto) Eos % (Auto) Baso % (Auto) Lymph # (Auto) [place] # (Auto) Eos # (Auto) Baso # (Auto) Abs Immat Gran (auto) Absolute Neuts (auto) Absolute Nucleated RBC Nucleated RBC % Sodium Potassium Chloride Carbon Dioxide Anion Gap BUN Creatinine Estim Creat Clear Calc Estimated GFR Glucose POC Capillary Glucose 249 mg/dl H mg/dl (65-105) Calcium Stl Occult Blood (IFOB) Positive H D (N) SARS-CoV-2 RNA (RT-PCR) Negative 03/18/20 03/18/20 03/19/20 17:42 21:09 05:14 WBC 23.0 K/mm3 H K/mm3 (4.5-10.0) RBC 3.27 M/mm3 L M/mm3 (4.2-5.4) Hgb 10.3 g/dL L g/dL (12.0-15.0) Hct 31.4 % L % (37.0-47.0) MCV 96.0 fl fl (80-100) MCH 31.5 pg pg (26-34) MCHC 32.8 g/dl g/dl (3
--- NOTE | 2020-03-19 11:22 | PM.PNPUL ---
Progress Note: A&P Assessment and Plan (1) Acute exacerbation of chronic obstructive airways disease: Code(s): J44.1 - Chronic obstructive pulmonary disease with (acute) exacerbation Status: Acute Assessment and Plan: COPD exacerbation, immuncompromised state.Improving and can be discharged home or to rehab tomorrow from pulmonary perspective. - Nasopharyngeal swab for influenza A/B negtive - Azithromycin 500 mg PO OD for five more days - resume anoro ellipta 62.5/25 mcg 1 puff daily upon discharge - f/u with Lisa Rodríguez in 2 weeks at [facility]. Subjective Date/time seen: 03/19/20 11:23 Interval history: Feeling better. Stays in bed all day and is not active at all. She needs agressive PT/OT Review of Systems Review of Systems: All systems reviewed & are unremarkable except as noted in HPI and below Exam Const: General: cooperative, healthy appearing, comfortable, no acute distress, well developed, alert, awake and Physically active Nutritional Appearance: obese Orientation/consciousness: oriented to person, oriented to place, oriented to time and patient oriented x3 Limitations: physical limitations Neck: Neck: trachea midline and supple Resp: Effort & Inspection: able to speak in complete sentences Auscultation: clear to auscultation bilaterally, rhonchi (upper airway ) and other Cardio: Jugular venous distension: no JVD Rate: regular rate Rhythm: regular rhythm Heart sounds: S1 normal heart sound present and S2 normal heart sound present GI: Inspection: normal to inspection Auscultation: normal bowel sounds Neuro: General: oriented to person, oriented to place, oriented to time and patient oriented x3 Cognition (Neuro): normal cognition Speech: normal speech Gait exam (Neuro): Normal gait present Psych: Appearance: grossly normal and well kempt Mental Status: mental status grossly normal Objective Data Vital Signs Vital Signs: Vital Signs - 24 hr 03/18/20 13:35 03/18/20 13:42 03/18/20 14:00 Temperature 36.6 C Pulse Rate 70 73 76 Respiratory Rate 20 20 22 H Blood Pressure 153/76 H Pulse Oximetry 100 03/18/20 16:15 03/18/20 16:17 03/18/20 16:20 Temperature Pulse Rate Respiratory Rate Blood Pressure Pulse Oximetry 87 L 93 96 03/18/20 16:30 03/18/20 20:00 03/18/20 20:42 Temperature Pulse Rate 106 H Respiratory Rate 20 Blood Pressure Pulse Oximetry 94 94 03/18/20 20:45 03/18/20 20:57 03/18/20 21:10 Temperature Pulse Rate 103 H 72 Respiratory Rate 20 Blood Pressure Pulse Oximetry 97 03/18/20 22:00 03/19/20 00:00 03/19/20 00:30 Temperature 36.4 C 36.6 C Pulse Rate 105 H 82 84 Respiratory Rate 24 H 24 H 19 Blood Pressure 146/71 H 118/65 Pulse Oximetry 100 99 98 03/19/20 02:30 03/19/20 06:00 03/19/20 08:26 Temperature 36.1 C L Pulse Rate 81 81 82 Respiratory Rate 19 24 H Blood Pressure 120/61 Pulse Oximetry 100 03/19/20 09:52 03/19/20 10:00 Temperature 36.2 C L Pulse Rate 90 81 Respiratory Rate 16 20 Blood Pressure 141/62 H Pulse Oximetry 93 94 Intake/Output Intake/Output: Intake & Output 03/16/20 03/17/20 03/18/20 03/19/20 23:59 23:59 23:59 23:59 Intake Total 2240 2130 2270 1040 Output Total 217 318 5814 300 Balance 1440 1230 1070 740 Meds/Results Medications: Active Medications Generic Name Dose Route Start Last Admin Trade Name Freq PRN Reason Stop Dose Admin Acetaminophen 325 mg 03/10/20 02:07 03/14/20 16:53 Acetaminophen 325 Mg Tablet PO 325 mg QID PRN Administration Pain (Scale Score 1-3) Hydrocodone Bitart/Acetaminophen 1 tab 03/10/20 02:07 03/18/20 21:16 Hydrocodone/Acetaminophen (*Crx) 7.5-325 Mg Tablet PO 1 tab Q6H PRN Administration Pain (Scale Score 7-10) Albuterol 2.5 mg 03/16/20 14:00 03/19/20 09:52 Albuterol Sulfate Neb 2.5 Mg/0.5 Ml Inh INHALATION 2.5 mg Q6HRT STACIE Administration Aspirin 81 mg 03/10/20 08:00
--- NOTE | 2020-03-19 11:26 | PCPTNOTE ---
The PT treatment was unable to be completed today. Patient declined, stating she doesn't feel well. Will continue per Plan of Care frequency and duration.
[2020-03-19 11:45] LABS: Glucose Point of Care 167 (65-105)
--- NOTE | 2020-03-19 12:59 | PM.IMPN ---
Progress Note: A&P Assessment and Plan (1) Acute exacerbation of chronic obstructive airways disease: Code(s): J44.1 - Chronic obstructive pulmonary disease with (acute) exacerbation Status: Acute Assessment and Plan: Patient with COPD presented with worsening shortness of breath. CXR showed mild bibasilar airspace opacities atelectasis vs. PNA. Patient described that she choked on some pills in the day prior to admission. Repeat chest XR unchanged. ST eval noted no evidence of aspiration. She is maintaining adequate oxygen saturations on 1 L O2 per NC. She is established with pulmonology at [facility] (Lisa Sherman NP) and is not on chronic O2. Continue PO prednisone. Monitor blood sugars. Leukocytosis secondary to steroids noted Continue albuterol and ipratropium Continue mucinex, cornet valve and incentive spirometry. Continue supplemental O2 as needed to keep saturations > 90%. CPAP at night and with naps. Continue Azithromycin an additional 5 days through 03/20/20. She completed a 5 day course prior on 03/14. Appreciate pulmonology input. She will need to follow up as an outpatient in 2 weeks. (2) Respiratory failure: Qualifiers: Chronicity: acute on chronic Respiratory failure complication: hypoxia and hypercapnia Qualified Code(s): J96.21 - Acute and chronic respiratory failure with hypoxia; J96.22 - Acute and chronic respiratory failure with hypercapnia Code(s): J96.90 - Respiratory failure, unspecified, unspecified whether with hypoxia or hypercapnia Status: Acute Assessment and Plan: Acute respiratory failure with hypoxia and hypercapnia secondary to COPD exacerbation. Covid test negative on 03/02. Influenza negative. Echo showed no evidence of pulmonary hypertension. Plan as above. Continue supplemental O2 and wean as tolerated. CPAP at night. Appreciate pulmonology input. Home O2 eval performed and patient will require 1L O2 with rest and with exertion. (3) Insulin dependent diabetes mellitus: Status: Chronic Assessment and Plan: A1c is 7.8. Significant insulin resistance with large home doses of 70/30 insulin. Blood sugars in the 160s today. Several prior readings in the 300s but is improving with recution of steroid dose. Continue home insulin regimen of novolog 70/30 84 units in AM and 52 units in PM Monitor with accu-cheks and also cover with SSI. Hypoglycemic protocol Continue diabetic diet. Anticipate further improvement with weaning of steroids. (4) Hyponatremia: Code(s): E87.1 - Hypo-osmolality and hyponatremia Status: Acute Assessment and Plan: Appears chronic based on review of previous labs. Na 135 today. Monitor BMP. (5) Hypertension: Qualifiers: Hypertension type: essential hypertension Qualified Code(s): I10 - Essential (primary) hypertension Code(s): I10 - Essential (primary) hypertension Status: Chronic Assessment and Plan: Blood pressures reviewed and have been variable. BP reviewed today and is stable at 120/61. Continue home regimen with Coreg, losartan, lasix. Prn hydralazine for systolic BP >170. Monitor BP daily. (6) Sleep apnea: Qualifiers: Sleep apnea type: obstructive Qualified Code(s): G47.33 - Obstructive sleep apnea (adult) (pediatric) Code(s): G47.30 - Sleep apnea, unspecified Status: Chronic Assessment and Plan: Chronic. Continue CPAP at night and with naps. Stressed importance of wearing at all times when sleeping, even naps. (7) Debility: Code(s): R53.81 - Other malaise Status: Chronic Assessment and Plan: Chronic physical debility, uses walker and wheelchair at [facility] assisted living. Appreciate PT/OT. She has declined PT/OT the past 2 days stating she is not feeling well. We discussed that it is important for her to get up and move. (8) CAD (coronary ar
--- NOTE | 2020-03-19 13:27 | PCRCNOTE ---
Correction: Home O2 will be set up with [facility], which is her current DME for CPAP supplies. When patient discharges she call [phone] [facility], all paperwork has been faxed, they have been notified that patient needs O2 and will be discharging soon.
--- NOTE | 2020-03-19 13:40 | PC.NURSE ---
To GI lab via stretcher with GI lab staff.
[2020-03-19] MEDS: LACTATED RINGERS 1,000 ML 150 ML IV CONT (13:59)
[2020-03-19 14:05] LABS: Glucose Point of Care 203 (65-105)
--- NOTE | 2020-03-19 15:11 | WPDGICN ---
Assessment and Plan Assessment and plan (1) Melena: Code(s): K92.1 - Melena Status: Acute Assessment and Plan: with drop in hb, will proceed with egd to assess continue with iv protonix more recommendations after egd (2) Acute blood loss anemia: Code(s): D62 - Acute posthemorrhagic anemia Status: Acute Assessment and Plan: continue to monitor h/h, iv protonix (3) Insulin dependent diabetes mellitus: Status: Chronic (4) CAD (coronary artery disease): Code(s): I25.10 - Atherosclerotic heart disease of solomon coronary artery without angina pectoris Status: Acute (5) Respiratory failure: Qualifiers: Chronicity: acute on chronic Respiratory failure complication: hypoxia and hypercapnia Qualified Code(s): J96.21 - Acute and chronic respiratory failure with hypoxia; J96.22 - Acute and chronic respiratory failure with hypercapnia Code(s): J96.90 - Respiratory failure, unspecified, unspecified whether with hypoxia or hypercapnia Status: Acute Assessment and Plan: covid-19 negative (6) COPD exacerbation: Code(s): J44.1 - Chronic obstructive pulmonary disease with (acute) exacerbation Status: Acute Assessment and Plan: by primary team, on treatment, pulmonary on board (7) Sleep apnea: Qualifiers: Sleep apnea type: obstructive Qualified Code(s): G47.33 - Obstructive sleep apnea (adult) (pediatric) Code(s): G47.30 - Sleep apnea, unspecified Status: Chronic (8) Obesity, morbid, BMI 40.0-49.9: Code(s): E66.01 - Morbid (severe) obesity due to excess calories Status: Acute GI Consult Note Consult date/time: 03/19/20 15:11 Reason for consult: melena HPI: Tom Rogers is a 74 year old female who was admitted 03/09/2020. She is senior care resident with multiple medical problems including COPD, CHF, CAD, anxiety, hypertension, sleep apnea, also colon cancer s/p left hemicolectomy about 5 years, Crohn's on mesalamine treated by Dr Oliveros with last colonoscopy in 2018 with small TA polyp removed and normal colo-colo anastomosis in sigmoid, no sign of colitis (report reviewed). She was admitted with worsening respiratory failure, cough and COPD exacerbation. Last 2 days noted dark stools and hb on admission was 16 and slowly has been trending down and today 10, also noted higher BUN 54 (on admission 20) Review of Systems Constitutional: Constitutional: Reports fatigue and Reports lethargy Eyes: Eyes: Reports no additional eye complaints ENT: Reports Normal hearing present Cardiovascular: Cardiovascular: Reports chest pain Respiratory: Respiratory: Reports cough and Reports dyspnea Gastrointestinal: Gastrointestinal: Reports melena and Denies vomiting Genitourinary: Genitourinary: Denies pelvic pain Musculoskeletal: Musculoskeletal: Denies neck pain Integumentary/Breasts: Skin/Breast: Denies dry skin Neurologic: Denies confusion Psychiatric: Psychiatric: Reports no additional psychiatric complaints [facility] Past Medical History Medical History (Updated 03/19/20 @ 15:25 by Jose A Estes MD) Acute blood loss anemia Ankle arthritis Anxiety Bipolar disorder CAD (coronary artery disease) CHF (congestive heart failure) Colon cancer COPD (chronic obstructive pulmonary disease) PFTs January 2018 demonstrating severe obstructive ventilatory defect without acute bronchodilator response mildly decreased DLCO Crohn's disease Diabetes On long-term insulin therapy of last A1c 8.07 April 2019 Diabetic peripheral neuropathy Dyslipidemia Essential hypertension History of CVA (cerebrovascular accident) 2015 patient stated initially she had left-sided weakness but that has resolved. Obesity, morbid, BMI 40.0-49.9 Sleep apnea On CPAP Urinary incontinence, mixed Surgical History Surgical History H/O h
[2020-03-19] MEDS: BENZOCAINE (*SP) 60 ML SPRAY CAN (HURRICAINE) 1 SPRAY MUCOUS MEM (15:27)
[2020-03-19 16:00] LABS: Glucose Point of Care 225 (65-105)
--- NOTE | 2020-03-19 16:00 | PC.NURSE ---
Patient returned from GI lab via stretcher with GI lab staff. No distress noted. No c/o pain.
[2020-03-19] MEDS: INSULIN ASPART (*BKC) 100 UNITS/ML SUB-Q (17:43)
[2020-03-19] MEDS: PRAMIPEXOLE 0.5 MG TABLET 1 MG PO (21:13)
[2020-03-19] MEDS: PERPHENAZINE 2 MG TABLET PO (21:13)
[2020-03-19] MEDS: PANTOPRAZOLE SODIUM IV 40 MG VIAL IV PUSH (21:13)
[2020-03-19 21:36] LABS: Glucose Point of Care 171 (65-105)
[2020-03-20] VITALS (19 sets, daily range): BP systolic 112–150; BP diastolic 41–59; PULSE 70–83; RESP 16–26; TEMP 36.1–36.7; O2SAT 94–100
[2020-03-20] MEDS: ALBUTEROL SULFATE NEB 2.5 MG/0.5 ML INH INHALATION ×4 (02:51→20:31)
[2020-03-20] MEDS: IPRATROPIUM BR 0.02% INH SOLN 0.5 MG/2.5 ML VIAL INHALATION ×4 (02:51→20:31)
[2020-03-20 05:17] LABS: Hematocrit 25.1 % (37.0-47.0); Hemoglobin 8.3 g/dL (12.0-15.0); Mean Corpuscular HGB Conc 33.1 g/dl (32-36); Mean Corpuscular Hemoglobin 32.3 pg (26-34); Mean Corpuscular Volume 97.7 fl (80-100); Mean Platelet Volume 9.2 fl (7.4-10.4); Platelet Count Result 157 k/mm3 (150-375); Red Blood Count 2.57 M/mm3 (4.2-5.4); Red Cell Distribution Width 12.7 % (11.5-14.5); White Blood Count 22.5 K/mm3 (4.5-10.0)
[2020-03-20 05:33] LABS: Anion Gap 0.99999 mmol/L (8-16); Blood Urea Nitrogen 42 mg/dL (7-17); Calcium 7.9 mg/dL (8.4-10.2); Carbon Dioxide > 40 mmol/L (22-30); Chloride 95 mmol/L (98-107); Estimated CRCL calculation 66 ml/min; Estimated Glomerular Filt Rate > 60; Glucose 67 mg/dL (65-105); Potassium 3.9 mmol/L (3.4-5.0); Sodium 136 mmol/L (137-145)
[2020-03-20] MEDS: LEVOTHYROXINE SODIUM 50 MCG TABLET PO (06:31)
[2020-03-20 07:40] LABS: Glucose Point of Care 94 (65-105)
--- NOTE | 2020-03-20 09:34 | PCPTNOTE ---
The PT treatment was unable to be completed today due to patient refusal. Will continue per Plan of care frequency and duration.
--- NOTE | 2020-03-20 09:36 | WPDGIPROGNO ---
Progress Note: A&P Assessment and Plan (1) Gastric ulcer: Code(s): K25.9 - Gastric ulcer, unspecified as acute or chronic, without hemorrhage or perforation Status: Acute Assessment and Plan: non-bleeding ulcers, no need of endoscopy treatment Marisa-test negative for H pylori continue with ppi twice daily, avoid nsai'ds hold asa for 7 days at least (2) Acute blood loss anemia: Code(s): D62 - Acute posthemorrhagic anemia Status: Acute Assessment and Plan: monitor hb (3) Melena: Code(s): K92.1 - Melena Status: Acute (4) Acute exacerbation of chronic obstructive airways disease: Code(s): J44.1 - Chronic obstructive pulmonary disease with (acute) exacerbation Status: Acute Assessment and Plan: on treatment, pulmonary on board (5) Obesity, morbid, BMI 40.0-49.9: Code(s): E66.01 - Morbid (severe) obesity due to excess calories Status: Acute (6) Insulin dependent diabetes mellitus: Status: Chronic Subjective Date/time seen: 03/20/20 09:36 Interval history: EGD yesterday showed erosive gastritis with several non-bleeding gastric ulcers. She says that is having a lousy day. Review of Systems Review of Systems: All systems reviewed & are unremarkable except as noted in HPI and below Exam Const: Other: morbid obese, looks chronically ill, using oxygen HENMT: General nose exam: Normal nares present Eyes: General: appearance normal, both eyes and all related structures Neck: Neck: supple Resp: Auscultation: wheezes and diminished lung sounds Cardio: Rate: regular rate GI: Inspection: obesity GI Palp: Yes Soft to palpation, Yes Firmness to palpation present (GI), No Tenderness to palpation present (GI) and No Guarding due to palpation present (GI) Auscultation: normal bowel sounds Skin: Other: bruise in right side of mouth (h/o fall at home) Neuro: Speech: normal speech Psych: Affect: Anxious affect present Objective Data Vital Signs Vital Signs: Vital Signs - 24 hr 03/19/20 09:52 03/19/20 10:00 03/19/20 13:59 Temperature 97.1 F L 98 F Pulse Rate 90 81 86 Respiratory Rate 16 20 16 Blood Pressure 141/62 H 105/50 L Pulse Oximetry 93 94 97 03/19/20 15:34 03/19/20 15:44 03/19/20 15:54 Temperature Pulse Rate 77 79 79 Respiratory Rate 21 H 21 H 18 Blood Pressure 114/38 L 119/41 L 114/36 L Pulse Oximetry 100 98 97 03/19/20 18:51 03/19/20 19:06 03/19/20 19:11 Temperature 98.3 F Pulse Rate 76 81 81 Respiratory Rate 22 H 16 16 Blood Pressure 132/65 Pulse Oximetry 96 95 03/19/20 19:15 03/19/20 20:00 03/19/20 21:12 Temperature 97.4 F L Pulse Rate 84 67 67 Respiratory Rate 18 24 H Blood Pressure 151/61 H Pulse Oximetry 95 92 03/20/20 02:00 03/20/20 02:54 03/20/20 02:55 Temperature 97.0 F L Pulse Rate 70 77 77 Respiratory Rate 22 H 16 17 Blood Pressure 117/56 L Pulse Oximetry 97 95 94 03/20/20 03:01 03/20/20 04:00 Temperature 97.5 F L Pulse Rate 73 75 Respiratory Rate 18 22 H Blood Pressure 150/58 H Pulse Oximetry 97 Intake/Output Intake/Output: Intake & Output 03/17/20 03/18/20 03/19/20 03/20/20 23:59 23:59 23:59 23:59 Intake Total 2130 2270 1530 500 Output Total 900 1200 300 Balance 1230 1070 1230 500 Meds/Results Medications: Active Medications Generic Name Dose Route Start Last Admin Trade Name Freq PRN Reason Stop Dose Admin Acetaminophen 325 mg 03/10/20 02:07 03/14/20 16:53 Acetaminophen 325 Mg Tablet PO 325 mg QID PRN Administration Pain (Scale Score 1-3) Albuterol 2.5 mg 03/16/20 14:00 03/20/20 07:49 Albuterol Sulfate Neb 2.5 Mg/0.5 Ml Inh INHALATION Not Given Q6HRT [facility] Aspirin 81 mg 03/10/20 08:00 03/18/20 08:23 Aspirin 81 Mg Chewable Tablet PO 81 mg DAILY@0800 [facility] Administration Atorvastatin Calcium 40 mg 03/10/20 09:00 03/19/20 08:26 Atorvastatin 40 Mg Tablet PO 40 mg DAILY [facility] A
[2020-03-20] MEDS: DORNASE ALFA INH SOLN 1 MG/ML 2.5 ML AMP 2.5 MG INHALATION (09:41)
[2020-03-20] MEDS: predniSONE 20 MG TABLET 60 MG PO (10:19)
[2020-03-20] MEDS: azaTHIOprine 25 MG TABLET PO (10:21)
[2020-03-20] MEDS: ATORVASTATIN 40 MG TABLET PO (10:21)
[2020-03-20] MEDS: BETAMETHASONE/CLOTRIMAZOLE CR 15 GM TUBE 1 APPLIC TOPICAL ×2 (10:21→17:30)
[2020-03-20] MEDS: AZITHROMYCIN 250 MG TABLET 500 MG PO (10:21)
[2020-03-20] MEDS: carvediloL 25 MG TABLET PO ×2 (10:21→21:31)
[2020-03-20] MEDS: LORATADINE 10 MG TABLET PO (10:22)
[2020-03-20] MEDS: CHOLESTYRAMINE LIGHT 4 GM POWD.PACK PO (10:22)
[2020-03-20] MEDS: guaiFENesin 12 HR 600 MG TABCR PO ×2 (10:22→21:31)
[2020-03-20] MEDS: GABAPENTIN 300 MG CAPSULE 600 MG PO (10:22)
[2020-03-20] MEDS: PARoxetine 10 MG TABLET 30 MG PO (10:23)
[2020-03-20] MEDS: TOLNAFTATE 1% POWDER 45 GM BTL 1 APPLIC TOPICAL ×2 (10:23→21:33)
[2020-03-20] MEDS: MESALAMINE 250 MG CAP CR PO ×2 (10:23→17:31)
[2020-03-20] MEDS: PANTOPRAZOLE SODIUM IV 40 MG VIAL IV PUSH ×2 (10:23→21:31)
[2020-03-20] MEDS: MONTELUKAST SODIUM 10 MG TABLET PO (10:23)
[2020-03-20] MEDS: FUROSEMIDE 40 MG TABLET PO (10:25)
[2020-03-20] MEDS: LOSARTAN POTASSIUM 100 MG TABLET PO (10:25)
--- NOTE | 2020-03-20 11:07 | PM.PNPUL ---
Progress Note: A&P Assessment and Plan (1) Acute exacerbation of chronic obstructive airways disease: Code(s): J44.1 - Chronic obstructive pulmonary disease with (acute) exacerbation Status: Acute Assessment and Plan: COPD exacerbation, immuncompromised state.Improving and can be discharged home or to rehab from pulmonary perspective. - prednisone discontinued in light of gastric ulcers, no need for further systemic corticosteroids but inhaled corticosteroids can continue. - Nasopharyngeal swab for influenza A/B negative - resume anoro ellipta 62.5/25 mcg 1 puff daily upon discharge - f/u with Lisa Rodríguez in 2 weeks at [place]. Subjective Date/time seen: 03/20/20 11:07 Interval history: EGD showed gastric ulcers. I will discontinue her prednisone in light of this and in light of her improving COPD exacerbation. Review of Systems Review of Systems: All systems reviewed & are unremarkable except as noted in HPI and below Exam Const: General: cooperative, healthy appearing, comfortable, no acute distress, well developed, alert, awake and Physically active Nutritional Appearance: obese Orientation/consciousness: oriented to person, oriented to place, oriented to time and patient oriented x3 Limitations: physical limitations Neck: Neck: trachea midline and supple Resp: Effort & Inspection: able to speak in complete sentences Auscultation: clear to auscultation bilaterally, rhonchi (upper airway ) and other Cardio: Jugular venous distension: no JVD Rate: regular rate Rhythm: regular rhythm Heart sounds: S1 normal heart sound present and S2 normal heart sound present GI: Inspection: normal to inspection Auscultation: normal bowel sounds Neuro: General: oriented to person, oriented to place, oriented to time and patient oriented x3 Cognition (Neuro): normal cognition Speech: normal speech Gait exam (Neuro): Normal gait present Psych: Appearance: grossly normal and well kempt Mental Status: mental status grossly normal Objective Data Vital Signs Vital Signs: Vital Signs - 24 hr 03/19/20 13:59 03/19/20 15:34 03/19/20 15:44 Temperature 36.6 C Pulse Rate 86 77 79 Respiratory Rate 16 21 H 21 H Blood Pressure 105/50 L 114/38 L 119/41 L Pulse Oximetry 97 100 98 03/19/20 15:54 03/19/20 18:51 03/19/20 19:06 Temperature 36.8 C Pulse Rate 79 76 81 Respiratory Rate 18 22 H 16 Blood Pressure 114/36 L 132/65 Pulse Oximetry 97 96 03/19/20 19:11 03/19/20 19:15 03/19/20 20:00 Temperature 36.3 C L Pulse Rate 81 84 67 Respiratory Rate 16 18 24 H Blood Pressure 151/61 H Pulse Oximetry 95 95 92 03/19/20 21:12 03/20/20 02:00 03/20/20 02:54 Temperature 36.1 C L Pulse Rate 67 70 77 Respiratory Rate 22 H 16 Blood Pressure 117/56 L Pulse Oximetry 97 95 03/20/20 02:55 03/20/20 03:01 03/20/20 04:00 Temperature 36.4 C L Pulse Rate 77 73 75 Respiratory Rate 17 18 22 H Blood Pressure 150/58 H Pulse Oximetry 94 97 03/20/20 09:43 03/20/20 09:59 03/20/20 10:00 Temperature Pulse Rate 78 77 Respiratory Rate 16 16 Blood Pressure Pulse Oximetry 94 95 03/20/20 10:21 Temperature Pulse Rate 80 Respiratory Rate Blood Pressure Pulse Oximetry Intake/Output Intake/Output: Intake & Output 03/17/20 03/18/20 03/19/20 03/20/20 23:59 23:59 23:59 23:59 Intake Total 2130 2270 1530 500 Output Total 900 1200 300 Balance 1230 1070 1230 500 Meds/Results Medications: Active Medications Generic Name Dose Route Start Last Admin Trade Name Freq PRN Reason Stop Dose Admin Acetaminophen 325 mg 03/10/20 02:07 03/14/20 16:53 Acetaminophen 325 Mg Tablet PO 325 mg QID PRN Administration Pain (Scale Score 1-3) Albuterol 2.5 mg 03/16/20 14:00 03/20/20 09:41 Albuterol Sulfate Neb 2.5 Mg/0.5 Ml Inh INHALATION 2.5 mg Q6HRT STACIE Administration Aspirin 81 mg 03/10/20 08:00 03/18/20 08:23 Aspirin 81 Mg Chewable Tablet PO 81 m
[2020-03-20 11:52] LABS: Glucose Point of Care 131 (65-105)
[2020-03-20] MEDS: ACETAMINOPHEN 325 MG TABLET PO ×2 (12:03→18:32)
[2020-03-20] MEDS: SUCRALFATE 1 GM TABLET PO ×3 (12:03→21:32)
[2020-03-20 12:15] LABS: Hematocrit 22.6 % (37.0-47.0); Hemoglobin 7.3 g/dL (12.0-15.0)
--- NOTE | 2020-03-20 13:04 | PM.IMPN ---
Progress Note: A&P Assessment and Plan (1) Acute exacerbation of chronic obstructive airways disease: Code(s): J44.1 - Chronic obstructive pulmonary disease with (acute) exacerbation Status: Acute Assessment and Plan: Patient with COPD presented with worsening shortness of breath. CXR showed mild bibasilar airspace opacities atelectasis vs. PNA. Patient described that she choked on some pills in the day prior to admission. Repeat chest XR unchanged. ST eval noted no evidence of aspiration. She is maintaining adequate oxygen saturations on 1 L O2 per NC. She is established with pulmonology at [place] (Lisa Sherman NP) and is not on chronic O2. Continue albuterol and ipratropium Systemic steroids discontinued per pulmonology recommendations. Continue mucinex, cornet valve and incentive spirometry. Continue supplemental O2 as needed to keep saturations > 90%. CPAP at night and with naps. Continue Azithromycin an additional 5 days through 03/21/20. She completed a 5 day course prior on 03/14. Appreciate pulmonology input. She will need to follow up as an outpatient in 2 weeks. (2) Respiratory failure: Qualifiers: Chronicity: acute on chronic Respiratory failure complication: hypoxia and hypercapnia Qualified Code(s): J96.21 - Acute and chronic respiratory failure with hypoxia; J96.22 - Acute and chronic respiratory failure with hypercapnia Code(s): J96.90 - Respiratory failure, unspecified, unspecified whether with hypoxia or hypercapnia Status: Acute Assessment and Plan: Acute respiratory failure with hypoxia and hypercapnia secondary to COPD exacerbation. Covid test negative on 03/02. Influenza negative. Echo showed no evidence of pulmonary hypertension. Plan as above. Continue supplemental O2 and wean as tolerated. CPAP at night. Appreciate pulmonology input. Home O2 eval performed and patient will require 1L O2 with rest and with exertion. Unfortunately, home O2 eval will likely need to be repeated as it was performed >48 hours prior to discharge (3) Gastric ulcer: Code(s): K25.9 - Gastric ulcer, unspecified as acute or chronic, without hemorrhage or perforation Status: Acute Assessment and Plan: Patient developed melena on 03/17/2020. I if OB was positive. H&H began declining. Patient underwent EGD by Dr. Krueger on 03/19/2020 which showed multiple benign ulcers in the antrum of the stomach which explains melena. Gastroenterology is following and input is appreciated. continue Protonix b.i.d. aspirin is on hold. hold at least 7 days per Gastroenterology recommendations. Plan to resume on 03/28. avoid NSAIDs and aspirin begin sucralfate Biopsy taken for H pylori. MARLENI test was negative (4) Acute blood loss anemia: Code(s): D62 - Acute posthemorrhagic anemia Status: Acute Assessment and Plan: Secondary to GI bleed. H&H previously within normal limits with steady decline since onset of melena. Today hemoglobin is 8.3 and hematocrit is 25.1. This is a significant decline from presentation. Vital signs are stable. No further episodes of bleeding today. Monitor H&H q6h Transfuse as needed with hemoglobin threshold <7.0 (5) Insulin dependent diabetes mellitus: Status: Chronic Assessment and Plan: A1c is 7.8. Significant insulin resistance with large home doses of 70/30 insulin. Blood sugars in the 130s today. Several prior readings in the 300s but has improved. Systemic steroids likely worsening sugars. Continue home insulin regimen of novolog 70/30 84 units in AM and 52 units in PM Monitor with accu-cheks and also cover with SSI. Hypoglycemic protocol Continue diabetic diet. Anticipate further improvement with cessation of steroids. (6) Hyponatremia: Code(s): E87.1 - Hypo-osmolality and hyponatremia Status: Acute Assessment and Plan: Appears chronic based on revi
[2020-03-20 16:41] LABS: Hematocrit 22.5 % (37.0-47.0); Hemoglobin 7.4 g/dL (12.0-15.0)
[2020-03-20 16:53] LABS: Glucose Point of Care 262 (65-105)
--- NOTE | 2020-03-20 17:21 | WPDANESPN ---
Anes - Prog Note Post-Op Date/Time: 03/20/20 17:21 Cardiovascular status: normal Respiratory status: normal Airway patency: baseline Mental status: baseline Post-Op hydration status: normal Vital Signs: Last Vital Signs Temp 36.1 C L 03/20/20 14:00 Pulse 70 03/20/20 14:00 Resp 26 H 03/20/20 14:00 BP 112/59 L 03/20/20 14:00 Pulse Ox 100 03/20/20 14:00 Pain Score (VAS): 0 I/O: Intake & Output 03/20/20 03/20/20 03/20/20 07:59 15:59 23:59 Intake Total 500 720 Balance 500 720 Laboratory Tests 03/20/20 16:36 03/20/20 04:59 03/19/20 03/20/20 03/20/20 21:10 04:59 04:59 WBC 22.5 H RBC 2.57 L Hgb 8.3 L Hct 25.1 L MCV 97.7 MCH 32.3 MCHC 33.1 RDW 12.7 Plt Count 157 MPV 9.2 Sodium 136 L Potassium 3.9 Chloride 95 L Carbon Dioxide > 40 H Anion Gap 0.44264 L BUN 42 H D Creatinine 0.90 Estim Creat Clear Calc 66 Estimated GFR > 60 Glucose 67 POC Capillary Glucose 171 H Calcium 7.9 L 03/20/20 03/20/20 03/20/20 07:29 11:46 12:08 WBC RBC Hgb 7.3 L Hct 22.6 L MCV MCH MCHC RDW Plt Count MPV Sodium Potassium Chloride Carbon Dioxide Anion Gap BUN Creatinine Estim Creat Clear Calc Estimated GFR Glucose POC Capillary Glucose 94 131 H Calcium 03/20/20 03/20/20 16:36 16:49 WBC RBC Hgb 7.4 L Hct 22.5 L MCV MCH MCHC RDW Plt Count MPV Sodium Potassium Chloride Carbon Dioxide Anion Gap BUN Creatinine Estim Creat Clear Calc Estimated GFR Glucose POC Capillary Glucose 262 H Calcium Post-procedural complaints: none Patient Feedback: Patient satisfied with anesthetic care.
[2020-03-20] MEDS: INSULIN ASPART (*BKC) 100 UNITS/ML SUB-Q (17:33)
[2020-03-20] MEDS: PERPHENAZINE 2 MG TABLET PO (21:31)
[2020-03-20] MEDS: PRAMIPEXOLE 0.5 MG TABLET 1 MG PO (21:31)
[2020-03-20 22:05] LABS: Glucose Point of Care 214 (65-105)
[2020-03-21] VITALS (23 sets, daily range): BP systolic 100–144; BP diastolic 40–72; PULSE 57–100; RESP 20–40; TEMP 35.9–36.9; O2SAT 97–100
[2020-03-21] LABS: Hematocrit 21.5 % (37.0-47.0); Hemoglobin 7.1 g/dL (12.0-15.0)
--- NOTE | 2020-03-21 00:58 | PC.NURSE ---
Notified patients daughter Krys of pt's hemoglobin level and doctor is ordering one unit of PRBC to be given. She voiced understanding with no complaints with plan of care.
[2020-03-21] MEDS: SODIUM CHLORIDE 0.9% IV 250 ML 30 ML IV CONT (04:37)
[2020-03-21] MEDS: SUCRALFATE 1 GM TABLET PO ×4 (05:42→20:44)
[2020-03-21] MEDS: LEVOTHYROXINE SODIUM 50 MCG TABLET PO (05:42)
[2020-03-21 07:15] LABS: Glucose Point of Care 125 (65-105)
--- NOTE | 2020-03-21 07:32 | PCRCNOTE ---
Window of time for administration has passed. See next scheduled administration.
[2020-03-21] MEDS: CHOLESTYRAMINE LIGHT 4 GM POWD.PACK PO (08:59)
[2020-03-21] MEDS: MESALAMINE 250 MG CAP CR PO ×2 (09:00→17:05)
[2020-03-21] MEDS: LOSARTAN POTASSIUM 100 MG TABLET PO (09:01)
[2020-03-21] MEDS: ATORVASTATIN 40 MG TABLET PO (09:01)
[2020-03-21] MEDS: AZITHROMYCIN 250 MG TABLET 500 MG PO (09:01)
[2020-03-21] MEDS: azaTHIOprine 25 MG TABLET PO (09:01)
[2020-03-21] MEDS: GABAPENTIN 300 MG CAPSULE 600 MG PO (09:01)
[2020-03-21] MEDS: FUROSEMIDE 40 MG TABLET PO (09:01)
[2020-03-21] MEDS: MONTELUKAST SODIUM 10 MG TABLET PO (09:01)
[2020-03-21] MEDS: PARoxetine 10 MG TABLET 30 MG PO (09:01)
[2020-03-21] MEDS: LORATADINE 10 MG TABLET PO (09:01)
[2020-03-21] MEDS: carvediloL 25 MG TABLET PO ×2 (09:01→20:45)
[2020-03-21] MEDS: PANTOPRAZOLE SODIUM IV 40 MG VIAL IV PUSH ×2 (09:02→20:44)
[2020-03-21] MEDS: TOLNAFTATE 1% POWDER 45 GM BTL 1 APPLIC TOPICAL ×2 (09:02→20:51)
[2020-03-21] MEDS: BETAMETHASONE/CLOTRIMAZOLE CR 15 GM TUBE 1 APPLIC TOPICAL ×2 (09:02→17:04)
[2020-03-21] MEDS: guaiFENesin 12 HR 600 MG TABCR PO ×2 (09:02→20:44)
[2020-03-21 09:30] LABS: Basophils Absolute Auto 0.1 K/mm3 (0.0-0.1); Basophils Percent Auto 0.4 % (0.2-1.2); Eosinophils Absolute Auto 0.1 K/mm3 (0-0.3); Eosinophils Percent Auto 0.4 % (0-4.4); Hematocrit 26.3 % (37.0-47.0); Hemoglobin 8.7 g/dL (12.0-15.0); Immature Granulocyte Absolute 0.92 K/mm3 (0.00-0.031); Immature Granulocyte Percent A 4.7 % (0-0.5); Lymphocytes Percent Auto 25.5 % (18.3-44.2); Mean Corpuscular HGB Conc 33.1 g/dl (32-36); Mean Corpuscular Hemoglobin 31.4 pg (26-34); Mean Corpuscular Volume 94.9 fl (80-100); Mean Platelet Volume 9.4 fl (7.4-10.4); Monocytes Absolute Auto 1.5 K/mm3 (0.1-0.6); Monocytes Percent Auto 7.4 % (2.6-8.5); Neutrophils Absolute Auto 12.1 K/mm3 (1.3-6.7); Neutrophils Percent Auto 61.6 % (45.5-73.1); Nucleated Red Blood Cells Absolute Auto 0.2 K/mm3 (0.0-0.012); Platelet Count Result 153 k/mm3 (150-375); Red Blood Count 2.77 M/mm3 (4.2-5.4); Red Cell Distribution Width 13.6 % (11.5-14.5); White Blood Count 19.6 K/mm3 (4.5-10.0)
[2020-03-21] MEDS: NITROGLYCERIN SL 0.4 MG TABLET SUBLINGUAL ×3 (09:35→09:45)
[2020-03-21] MEDS: IPRATROPIUM BR 0.02% INH SOLN 0.5 MG/2.5 ML VIAL INHALATION ×3 (09:37→21:43)
[2020-03-21] MEDS: ALBUTEROL SULFATE NEB 2.5 MG/0.5 ML INH INHALATION ×3 (09:37→21:42)
--- NOTE | 2020-03-21 09:42 | ECG_ITS ---
Measurements Intervals [place] Rate: 82 P: -74 MO: 366 QRS: -6 QRSD: 90 T: 217 QT: 378 QTc: 443 Interpretive Statements SINUS OR ECTOPIC ATRIAL RHYTHM BORDERLINE ST-T WAVE ABNORMALITY- DIFFUSE LEADS BASELINE ARTIFACT- I, II, III, AVR, AVL, AVF, V1-V6 BORDERLINE ECG Electronically Signed On 03-21-2020 17:43:36 [employer] by Julien Brown D.O.
[2020-03-21 09:44] LABS: Anion Gap -1 mmol/L (8-16); Blood Urea Nitrogen 22 mg/dL (7-17); Calcium 7.9 mg/dL (8.4-10.2); Carbon Dioxide 39 mmol/L (22-30); Chloride 94 mmol/L (98-107); Estimated CRCL calculation 66 ml/min; Estimated Glomerular Filt Rate > 60; Glucose 188 mg/dL (65-105); Potassium 3.5 mmol/L (3.4-5.0); Sodium 132 mmol/L (137-145)
--- NOTE | 2020-03-21 10:23 | PM.IMPN ---
Progress Note: A&P Assessment and Plan (1) Acute exacerbation of chronic obstructive airways disease: Code(s): J44.1 - Chronic obstructive pulmonary disease with (acute) exacerbation Status: Acute Assessment and Plan: Patient with COPD presented with worsening shortness of breath. CXR showed mild bibasilar airspace opacities atelectasis vs. PNA. Patient described that she choked on some pills in the day prior to admission. Repeat chest XR unchanged. ST eval noted no evidence of aspiration. She is maintaining adequate oxygen saturations on 1 L O2 per NC. She is established with pulmonology at [place] (Lisa Sherman, MARCELA) and is not on chronic O2. Continue albuterol and ipratropium Systemic steroids discontinued 03/20 per pulmonology recommendations. Continue mucinex, cornet valve and incentive spirometry. Continue supplemental O2 as needed to keep saturations > 90%. CPAP at night and with naps. She will complete a 10 day course of Azithromycin today Appreciate pulmonology input. She will need to follow up as an outpatient in 2 weeks. (2) Respiratory failure: Qualifiers: Chronicity: acute on chronic Respiratory failure complication: hypoxia and hypercapnia Qualified Code(s): J96.21 - Acute and chronic respiratory failure with hypoxia; J96.22 - Acute and chronic respiratory failure with hypercapnia Code(s): J96.90 - Respiratory failure, unspecified, unspecified whether with hypoxia or hypercapnia Status: Acute Assessment and Plan: Acute respiratory failure with hypoxia and hypercapnia secondary to COPD exacerbation. Covid test negative on 03/02. Influenza negative. Echo showed no evidence of pulmonary hypertension. Plan as above. Continue supplemental O2 and wean as tolerated. CPAP at night. Appreciate pulmonology input. Home O2 eval performed and patient will require 1L O2 with rest and with exertion. Unfortunately, home O2 eval will likely need to be repeated as it was performed >48 hours prior to discharge (3) Gastric ulcer: Code(s): K25.9 - Gastric ulcer, unspecified as acute or chronic, without hemorrhage or perforation Status: Acute Assessment and Plan: Patient developed melena on 03/17/2020. IFOB was positive. H&H declined. Patient underwent EGD by Dr. Krueger on 03/19/2020 which showed multiple benign ulcers in the antrum of the stomach which explains melena. Gastroenterology is following and input is appreciated. continue Protonix b.i.d. aspirin is on hold. hold at least 7 days per Gastroenterology recommendations. Plan to resume on 03/28. avoid NSAIDs and aspirin Continue sucralfate Biopsy taken for H pylori. MARLENI test was negative (4) Acute blood loss anemia: Code(s): D62 - Acute posthemorrhagic anemia Status: Acute Assessment and Plan: Secondary to GI bleed. H&H previously within normal limits with sharp decline since onset of melena. Vital signs are stable. No further episodes of bleeding today. Transfused 1 unit pRBC this morning in light of steep decline in Hgb. Monitor H&H q6h Transfuse as needed with hemoglobin threshold <7.0 (5) Chest pain: Code(s): R07.9 - Chest pain, unspecified Status: Acute Assessment and Plan: Patient complained of substernal chest pressure on 03/16/20 that lasted approximately 20 minutes and was relieved after 3rd dose of nitro. At that time, stat EKG and troponin ordered. No changes in EKG from baseline and troponins flat. She had another episode today lasting 20 minutes. CP occurred at rest. Denied radiation. No diaphoresis, anxiety, or increased SOB from baseline. Echo showed pericardial effusion and pain may be related to pericarditis. No improvement of pain with leaning forward, although this is limited due to body habitus. Given her cardiac history, lexiscan was considered. However, upon further evaluation of records, discussion with patient's cardiol
--- NOTE | 2020-03-21 11:15 | PM.PNPUL ---
Progress Note: A&P Assessment and Plan (1) Acute exacerbation of chronic obstructive airways disease: Code(s): J44.1 - Chronic obstructive pulmonary disease with (acute) exacerbation Status: Acute Assessment and Plan: COPD exacerbation, immuncompromised state.Improving and can be discharged home or to rehab from pulmonary perspective. - prednisone discontinued in light of gastric ulcers, no need for further systemic corticosteroids but inhaled corticosteroids can continue. - Nasopharyngeal swab for influenza A/B negative - Pulmicort 0.5 mg bid add this morning - consider changing Carvediolol to metoprolol as Carvedilol can worsen bronchospasm in some patients with COPD or Asthma - resume anoro ellipta 62.5/25 mcg 1 puff daily upon discharge - f/u with Lisa Rodríguez in 2 weeks at [place]. Subjective Date/time seen: 03/21/20 11:15 Interval history: She's complaining of central sternal chest pain. This pain was reproduced by palpation. She denies cough or excessive wheezing. She still feels weak. Review of Systems Review of Systems: All systems reviewed & are unremarkable except as noted in HPI and below Exam Const: General: cooperative, healthy appearing, comfortable, no acute distress, well developed, alert, awake and Physically active Nutritional Appearance: obese Orientation/consciousness: oriented to person, oriented to place, oriented to time and patient oriented x3 Limitations: physical limitations Neck: Neck: trachea midline and supple Resp: Effort & Inspection: able to speak in complete sentences Auscultation: clear to auscultation bilaterally, rhonchi (upper airway ) and other Cardio: Jugular venous distension: no JVD Rate: regular rate Rhythm: regular rhythm Heart sounds: S1 normal heart sound present and S2 normal heart sound present GI: Inspection: normal to inspection Auscultation: normal bowel sounds Neuro: General: oriented to person, oriented to place, oriented to time and patient oriented x3 Cognition (Neuro): normal cognition Speech: normal speech Gait exam (Neuro): Normal gait present Psych: Appearance: grossly normal and well kempt Mental Status: mental status grossly normal Objective Data Vital Signs Vital Signs: Vital Signs - 24 hr 03/20/20 14:00 03/20/20 14:15 03/20/20 14:25 Temperature 36.1 C L Pulse Rate 70 79 81 Respiratory Rate 26 H 16 16 Blood Pressure 112/59 L Pulse Oximetry 100 03/20/20 18:00 03/20/20 20:00 03/20/20 20:31 Temperature 36.7 C 36.3 C L Pulse Rate 83 83 79 Respiratory Rate 26 H 24 H 18 Blood Pressure 117/41 L 125/46 L Pulse Oximetry 100 100 03/20/20 20:37 03/20/20 20:43 03/20/20 21:31 Temperature Pulse Rate 79 83 83 Respiratory Rate 18 18 Blood Pressure Pulse Oximetry 96 03/20/20 23:55 03/21/20 00:00 03/21/20 04:30 Temperature 36.9 C 36.6 C Pulse Rate 82 73 71 Respiratory Rate 20 20 20 Blood Pressure 125/48 L 132/40 L Pulse Oximetry 94 97 98 03/21/20 04:44 03/21/20 04:45 03/21/20 05:45 Temperature 36.6 C 36.6 C 36.4 C Pulse Rate 71 71 72 Respiratory Rate 20 20 24 H Blood Pressure 144/48 H 144/48 H 138/64 Pulse Oximetry 99 99 100 03/21/20 06:45 03/21/20 07:45 03/21/20 08:05 Temperature 36.7 C 36.3 C L 36.4 C Pulse Rate 100 75 80 Respiratory Rate 22 H 27 H 22 H Blood Pressure 140/72 133/47 L 117/58 L Pulse Oximetry 100 99 100 03/21/20 09:00 03/21/20 09:01 03/21/20 09:42 Temperature Pulse Rate 88 81 Respiratory Rate 40 H Blood Pressure Pulse Oximetry 100 03/21/20 09:43 03/21/20 09:52 Temperature Pulse Rate 80 Respiratory Rate 36 H Blood Pressure Pulse Oximetry 97 Intake/Output Intake/Output: Intake & Output 03/18/20 03/19/20 03/20/20 03/21/20 23:59 23:59 23:59 23:59 Intake Total 2270 1530 2150 1330 Output Total 1200 300 750 Balance 1070 1230 2150 580 Meds/Results Medications: Active Medications Generic Name Dose Route Start Last Admin
[2020-03-21] MEDS: ACETAMINOPHEN 325 MG TABLET PO (11:38)
[2020-03-21 11:56] LABS: Glucose Point of Care 101 (65-105)
--- NOTE | 2020-03-21 12:15 | WPDGIPROGNO ---
Progress Note: A&P Assessment and Plan (1) Gastric ulcer: Code(s): K25.9 - Gastric ulcer, unspecified as acute or chronic, without hemorrhage or perforation Status: Acute Assessment and Plan: non-bleeding gastric ulcers Marisa-test negative for H pylori continue with ppi twice daily, avoid nsai'ds and also holding aspirin tolerating diet but poor appetite (2) Acute blood loss anemia: Code(s): D62 - Acute posthemorrhagic anemia Status: Acute Assessment and Plan: monitor hb, received one unit prbc (3) Melena: Code(s): K92.1 - Melena Status: Acute (4) Acute exacerbation of chronic obstructive airways disease: Code(s): J44.1 - Chronic obstructive pulmonary disease with (acute) exacerbation Status: Acute Assessment and Plan: on treatment, pulmonary on board (5) Obesity, morbid, BMI 40.0-49.9: Code(s): E66.01 - Morbid (severe) obesity due to excess calories Status: Acute (6) Insulin dependent diabetes mellitus: Status: Chronic Subjective Date/time seen: 03/21/20 12:15 Interval history: still weak, no changes. She received one unit prbc Review of Systems Review of Systems: All systems reviewed & are unremarkable except as noted in HPI and below Exam Const: Other: morbid obese, looks chronically ill, using oxygen HENMT: General nose exam: Normal nares present Eyes: General: appearance normal, both eyes and all related structures Neck: Neck: supple Resp: Auscultation: rhonchi, wheezes and diminished lung sounds Cardio: Rate: regular rate GI: Inspection: obesity GI Palp: Yes Soft to palpation, Yes Firmness to palpation present (GI), No Tenderness to palpation present (GI) and No Guarding due to palpation present (GI) Auscultation: normal bowel sounds Skin: General skin exam: pallor Other: bruise in right side of face and arms Neuro: Speech: normal speech Psych: Affect: Anxious affect present Objective Data Vital Signs Vital Signs: Vital Signs - 24 hr 03/20/20 14:00 03/20/20 14:15 03/20/20 14:25 Temperature 97 F L Pulse Rate 70 79 81 Respiratory Rate 26 H 16 16 Blood Pressure 112/59 L Pulse Oximetry 100 03/20/20 18:00 03/20/20 20:00 03/20/20 20:31 Temperature 98.0 F 97.4 F L Pulse Rate 83 83 79 Respiratory Rate 26 H 24 H 18 Blood Pressure 117/41 L 125/46 L Pulse Oximetry 100 100 03/20/20 20:37 03/20/20 20:43 03/20/20 21:31 Temperature Pulse Rate 79 83 83 Respiratory Rate 18 18 Blood Pressure Pulse Oximetry 96 03/20/20 23:55 03/21/20 00:00 03/21/20 04:30 Temperature 98.4 F 98 F Pulse Rate 82 73 71 Respiratory Rate 20 20 20 Blood Pressure 125/48 L 132/40 L Pulse Oximetry 94 97 98 03/21/20 04:44 03/21/20 04:45 03/21/20 05:45 Temperature 97.9 F 97.9 F 97.6 F Pulse Rate 71 71 72 Respiratory Rate 20 20 24 H Blood Pressure 144/48 H 144/48 H 138/64 Pulse Oximetry 99 99 100 03/21/20 06:45 03/21/20 07:45 03/21/20 08:05 Temperature 98.0 F 97.4 F L 97.6 F Pulse Rate 100 75 80 Respiratory Rate 22 H 27 H 22 H Blood Pressure 140/72 133/47 L 117/58 L Pulse Oximetry 100 99 100 03/21/20 09:00 03/21/20 09:01 03/21/20 09:42 Temperature Pulse Rate 88 81 Respiratory Rate 40 H Blood Pressure Pulse Oximetry 100 03/21/20 09:43 03/21/20 09:52 Temperature Pulse Rate 80 Respiratory Rate 36 H Blood Pressure Pulse Oximetry 97 Intake/Output Intake/Output: Intake & Output 03/18/20 03/19/20 03/20/20 03/21/20 23:59 23:59 23:59 23:59 Intake Total 2270 1530 2150 1330 Output Total 1200 300 750 Balance 1070 1230 2150 580 Meds/Results Medications: Active Medications Generic Name Dose Route Start Last Admin Trade Name Freq PRN Reason Stop Dose Admin Acetaminophen 325 mg 03/10/20 02:07 03/21/20 11:38 Acetaminophen 325 Mg Tablet PO 325 mg QID PRN Administration Pain (Scale Score 1-3) Albuterol 2.5 mg 03/16/20 14:00 1
[2020-03-21 15:16] LABS: Hematocrit 30.5 % (37.0-47.0); Hemoglobin 10.2 g/dL (12.0-15.0)
[2020-03-21 16:51] LABS: Glucose Point of Care 58 (65-105)
[2020-03-21] MEDS: DEXTROSE 50% 25 GM/50 ML SYRINGE IV PUSH (16:53)
[2020-03-21 17:16] LABS: Glucose Point of Care 145 (65-105)
[2020-03-21] MEDS: PERPHENAZINE 2 MG TABLET PO (20:44)
[2020-03-21] MEDS: PRAMIPEXOLE 0.5 MG TABLET 1 MG PO (20:44)
[2020-03-21 20:56] LABS: Glucose Point of Care 171 (65-105)
[2020-03-21] MEDS: BUDESONIDE RESPULE NEB 0.5 MG/2 ML AMP INHALATION (21:43)
[2020-03-22] VITALS (20 sets, daily range): BP systolic 96–147; BP diastolic 43–58; PULSE 58–79; RESP 15–22; TEMP 36–37.6; O2SAT 87–100
[2020-03-22] MEDS: ALBUTEROL SULFATE NEB 2.5 MG/0.5 ML INH INHALATION ×4 (02:30→20:39)
[2020-03-22] MEDS: IPRATROPIUM BR 0.02% INH SOLN 0.5 MG/2.5 ML VIAL INHALATION ×4 (02:30→20:38)
[2020-03-22] MEDS: ACETAMINOPHEN 325 MG TABLET PO ×3 (06:01→20:41)
[2020-03-22] MEDS: SUCRALFATE 1 GM TABLET PO ×4 (06:02→20:13)
[2020-03-22] MEDS: LEVOTHYROXINE SODIUM 50 MCG TABLET PO (06:02)
[2020-03-22 06:08] LABS: Hematocrit 27.7 % (37.0-47.0); Hemoglobin 9.1 g/dL (12.0-15.0); Mean Corpuscular HGB Conc 32.9 g/dl (32-36); Mean Corpuscular Hemoglobin 31.5 pg (26-34); Mean Corpuscular Volume 95.8 fl (80-100); Mean Platelet Volume 9.4 fl (7.4-10.4); Platelet Count Result 174 k/mm3 (150-375); Red Blood Count 2.89 M/mm3 (4.2-5.4); Red Cell Distribution Width 13.7 % (11.5-14.5); White Blood Count 13.2 K/mm3 (4.5-10.0)
[2020-03-22 06:22] LABS: Anion Gap 2 mmol/L (8-16); Blood Urea Nitrogen 17 mg/dL (7-17); Calcium 8.1 mg/dL (8.4-10.2); Carbon Dioxide 39 mmol/L (22-30); Chloride 94 mmol/L (98-107); Estimated CRCL calculation 73 ml/min; Estimated Glomerular Filt Rate > 60; Glucose 96 mg/dL (65-105); Magnesium 2.3 mg/dL (1.6-2.3); Potassium 3.3 mmol/L (3.4-5.0); Sodium 135 mmol/L (137-145)
[2020-03-22 07:16] LABS: Glucose Point of Care 100 (65-105)
[2020-03-22] MEDS: CHOLESTYRAMINE LIGHT 4 GM POWD.PACK PO (09:08)
[2020-03-22] MEDS: ATORVASTATIN 40 MG TABLET PO (09:09)
[2020-03-22] MEDS: LORATADINE 10 MG TABLET PO (09:09)
[2020-03-22] MEDS: GABAPENTIN 300 MG CAPSULE 600 MG PO (09:09)
[2020-03-22] MEDS: carvediloL 25 MG TABLET PO ×2 (09:10→20:13)
[2020-03-22] MEDS: LOSARTAN POTASSIUM 100 MG TABLET PO (09:10)
[2020-03-22] MEDS: FUROSEMIDE 40 MG TABLET PO (09:10)
[2020-03-22] MEDS: guaiFENesin 12 HR 600 MG TABCR PO ×2 (09:10→20:13)
[2020-03-22] MEDS: PANTOPRAZOLE SODIUM IV 40 MG VIAL IV PUSH ×2 (09:10→20:13)
[2020-03-22] MEDS: PARoxetine 10 MG TABLET 30 MG PO (09:10)
[2020-03-22] MEDS: MONTELUKAST SODIUM 10 MG TABLET PO (09:10)
[2020-03-22] MEDS: MESALAMINE 250 MG CAP CR PO ×2 (09:10→16:56)
[2020-03-22] MEDS: azaTHIOprine 25 MG TABLET PO (09:10)
[2020-03-22] MEDS: ERGOCALCIFEROL 50,000 UNIT CAPSULE 50000 UNITS PO (09:10)
[2020-03-22] MEDS: TOLNAFTATE 1% POWDER 45 GM BTL 1 APPLIC TOPICAL ×2 (09:11→20:14)
[2020-03-22] MEDS: BETAMETHASONE/CLOTRIMAZOLE CR 15 GM TUBE 1 APPLIC TOPICAL ×2 (09:11→16:57)
[2020-03-22] MEDS: BUDESONIDE RESPULE NEB 0.5 MG/2 ML AMP INHALATION ×2 (09:35→20:39)
--- NOTE | 2020-03-22 09:56 | PM.CNCAR ---
Assessment and Plan Additional Plan 74-year-old white female with: Episodes of relatively atypical sounding chest pain with no objective evidence of acute coronary syndrome during this hospitalization small circumferential asymptomatic pericardial effusion. There is no evidence on echo or on my physical exam that the patient is in a state of hemodynamic compromise with this. This effusion is small enough where it is not safe to drain it percutaneously. The effusion does not need to be drained for therapeutic reasons. For diagnostic reasons if it was to be drained it would have to be done with a subxiphoid incision by a cardiothoracic surgeon. I do not see any immediate reason with that that needs to happen. It is appropriate that her anti-platelet therapy is discontinued because of her GI blood loss and recently diagnosed ulcer disease. Her stents from 2017 should be well endothelialized and aspirin therapy should be interrupted until gastric ulcers are healed. Dilan Terrell MD [facility] History of Present Illness History of Present Illness Consult date/time: 03/22/20 09:56 Consult reason: chest pain Reason For Visit: COPD exacerbation, Narrative: This is a 74-year-old lady am seeing at the request of the hospitalist this morning because of episodes of chest pain in the presence of a pericardial effusion. This is a patient with coronary artery disease that I am known to follow in the office since July of 2016 when she presented here to this hospital with an acute coronary syndrome. At that time she was found to have a high-grade proximal subtotal stenosis of the LAD that was the culprit for her presentation. She also had a significant RCA lesion. We addressed both of those lesions successfully with PCI and she has done well since then. She did have some ischemic LV dysfunction which improved nicely and normalized following revascularization. As it happens I just saw her in the office last month for routine follow-up at which time she had no cardiovascular complaints. She is chronically morbidly obese and was considering an being evaluated as a candidate for bariatric surgery. That however was canceled because of the carter virus pandemic. The patient has been in the hospital here at [facility] since March 09 which time she came in complaining primarily of shortness of breath. She was felt to be having a COPD exacerbation. She was seen by pulmonology and is followed actively by them since consultation and has evidence of significant obstructive lung disease. Unfortunately while she is in the hospital she also developed melanotic bleeding and dropped her hemoglobin from normal down to about 7 g and underwent endoscopy showing several gastric ulcers. Appropriately here aspirin treatment was discontinued at that time. She does complain of intermittent episodes of chest pain she had a chest pain episode 5 days ago at which time the hospitalist evaluated her with an electrocardiogram and a series of troponin levels which were negative. Other than being deconditioned and extremely weak she does not have any active complaints currently. She had an echocardiogram done which was interpreted by Dr. Zaldivar over the weekend showing normal left ventricular systolic function, no significant valvular abnormalities but she does have a circumferential pericardial effusion. I have yet to look at the images myself it sounds like a relatively small 1-1.5 cm circumferential effusion. The echo does comment on invagination of the right atrium free wall but also comments on IVC pressure being normal. Review of Systems Constitutional: Constitutional: Reports fatigue and Reports weakness Eyes: Eyes: Reports no additional eye complaints ENT: Reports system reviewed and no additional complaints, except as documented Cardiovascular: Cardiovascular: Reports as per HPI Respiratory: Respiratory: Reports as per HPI and Reports chest congestion Gastrointestin
[2020-03-22 11:51] LABS: Glucose Point of Care 93 (65-105)
--- NOTE | 2020-03-22 13:24 | WPDGIPROGNO ---
Progress Note: A&P Assessment and Plan (1) Gastric ulcer: Code(s): K25.9 - Gastric ulcer, unspecified as acute or chronic, without hemorrhage or perforation Status: Acute Assessment and Plan: non-bleeding gastric ulcers Marisa-test negative for H pylori continue with ppi twice daily, avoid nsai'ds and also holding aspirin for now no more overt gib will follow from [place], call if questions (2) Acute blood loss anemia: Code(s): D62 - Acute posthemorrhagic anemia Status: Acute Assessment and Plan: hb stable for last 48 hours (3) Melena: Code(s): K92.1 - Melena Status: Acute (4) Acute exacerbation of chronic obstructive airways disease: Code(s): J44.1 - Chronic obstructive pulmonary disease with (acute) exacerbation Status: Acute Assessment and Plan: on treatment, pulmonary on board (5) Obesity, morbid, BMI 40.0-49.9: Code(s): E66.01 - Morbid (severe) obesity due to excess calories Status: Acute (6) Insulin dependent diabetes mellitus: Status: Chronic Subjective Date/time seen: 03/22/20 13:24 Interval history: no more bleeding, she is still feeling tired which is unchanged. Review of Systems Review of Systems: All systems reviewed & are unremarkable except as noted in HPI and below Exam Const: Other: morbid obese, looks chronically ill, using oxygen HENMT: General nose exam: Normal nares present Eyes: General: appearance normal, both eyes and all related structures Neck: Neck: supple Resp: Auscultation: rhonchi, wheezes and diminished lung sounds Cardio: Rate: regular rate GI: Inspection: obesity GI Palp: Yes Soft to palpation, Yes Firmness to palpation present (GI), No Tenderness to palpation present (GI) and No Guarding due to palpation present (GI) Auscultation: normal bowel sounds Skin: General skin exam: pallor Other: bruise in right side of face and arms Neuro: Speech: normal speech Psych: Affect: Anxious affect present Objective Data Vital Signs Vital Signs: Vital Signs - 24 hr 03/21/20 14:03 03/21/20 14:10 03/21/20 14:17 Temperature 98.1 F Pulse Rate 67 69 67 Respiratory Rate 28 H 30 H 30 H Blood Pressure 100/52 L Pulse Oximetry 100 03/21/20 17:01 03/21/20 20:00 03/21/20 20:45 Temperature 96.6 F L Pulse Rate 64 68 Respiratory Rate 28 H Blood Pressure 129/51 L Pulse Oximetry 100 100 03/21/20 21:45 03/21/20 21:46 03/21/20 22:00 Temperature 97.0 F L Pulse Rate 59 L 59 L 58 L Respiratory Rate 21 H 20 22 H Blood Pressure 124/48 L Pulse Oximetry 100 100 100 03/22/20 00:00 03/22/20 02:30 03/22/20 02:35 Temperature 96.8 F L Pulse Rate 61 59 L 60 Respiratory Rate 20 15 15 Blood Pressure 111/45 L Pulse Oximetry 98 98 03/22/20 02:36 03/22/20 04:00 03/22/20 07:50 Temperature 97.9 F Pulse Rate 60 69 Respiratory Rate 19 21 H Blood Pressure 147/58 H Pulse Oximetry 100 99 03/22/20 09:10 03/22/20 09:38 03/22/20 09:40 Temperature Pulse Rate 78 58 L 59 L Respiratory Rate 18 20 Blood Pressure Pulse Oximetry 98 03/22/20 10:03 03/22/20 11:00 Temperature 99.3 F Pulse Rate 58 L 73 Respiratory Rate 18 15 Blood Pressure 97/43 L Pulse Oximetry 100 Intake/Output Intake/Output: Intake & Output 03/19/20 03/20/20 03/21/20 03/22/20 23:59 23:59 23:59 23:59 Intake Total 1530 2150 2070 640 Output Total 300 1125 100 Balance 1230 2150 945 540 Meds/Results Medications: Active Medications Generic Name Dose Route Start Last Admin Trade Name Freq PRN Reason Stop Dose Admin Acetaminophen 325 mg 03/10/20 02:07 03/22/20 06:01 Acetaminophen 325 Mg Tablet PO 325 mg QID PRN Administration Pain (Scale Score 1-3) Albuterol 2.5 mg 03/16/20 14:00 03/22/20 09:36 Albuterol Sulfate Neb 2.5 Mg/0.5 Ml Inh INHALATION 2.5 mg Q6HRT STACIE Administration Aspirin 81 mg 03/10/20 08:00 03/18/20 08:23 Aspirin 81 Mg C
--- NOTE | 2020-03-22 14:45 | PCRCNOTE ---
ROOM AIR SPO2 CHECK TO QUALIFY FOR HOME OXYGEN SINCE HOME O2 EVALUATION IS OVER 48 HOURS OLD. PT. SPO2 DROPPED TO 86% ON ROOM AIR.
[2020-03-22] MEDS: CALCIUM CARBONATE (TUMS) 500 MG (200 MG ELEMENTAL) PO (15:54)
--- NOTE | 2020-03-22 15:54 | PCRCNOTE ---
PT. IS GOING TO SNF, HOME O2 PLACED ON HOLD. [facility]MU FROM [facility] PATIENT AWARE.
--- NOTE | 2020-03-22 16:24 | PM.DS ---
DS: Admitting Diagnosis Admitting Diagnosis Admitting Diagnosis: COPD exacerbation, DS: Discharge Diagnosis Discharge Diagnosis (1) Acute exacerbation of chronic obstructive airways disease: Code(s): J44.1 - Chronic obstructive pulmonary disease with (acute) exacerbation Status: Acute Assessment and Plan: Patient with COPD presented with worsening shortness of breath. CXR showed mild bibasilar airspace opacities atelectasis vs. PNA. Patient described that she choked on some pills in the day prior to admission. Repeat chest XR unchanged. ST eval noted no evidence of aspiration. She maintained adequate oxygen saturations on 1 L O2 per NC with rest and with exertion which she will continue at SNF. She is established with pulmonology at [facility] (Lisa Sherman NP) and will need to follow up in 2 weeks. She was seen by Dr. Nassar during stay. She was treated with nebs, IV steroids weaned to PO and tapered, and completed 10 days of Azithromycin. Supportive care provided. She was started on Pulmicort and will continue annoro ellipta and albuterol prn. Continue CPAP at night. (2) Respiratory failure: Qualifiers: Chronicity: acute on chronic Respiratory failure complication: hypoxia and hypercapnia Qualified Code(s): J96.21 - Acute and chronic respiratory failure with hypoxia; J96.22 - Acute and chronic respiratory failure with hypercapnia Code(s): J96.90 - Respiratory failure, unspecified, unspecified whether with hypoxia or hypercapnia Status: Acute Assessment and Plan: Acute respiratory failure with hypoxia and hypercapnia secondary to COPD exacerbation. Covid test negative on 03/02. Influenza negative. Echo showed no evidence of pulmonary hypertension. Plan as above. Continue supplemental O2 at 1L. CPAP at night. (3) Gastric ulcer: Code(s): K25.9 - Gastric ulcer, unspecified as acute or chronic, without hemorrhage or perforation Status: Acute Assessment and Plan: Patient developed melena on 03/17/2020. IFOB was positive. H&H declined. Patient underwent EGD by Dr. Krueger on 03/19/2020 which showed multiple benign ulcers in the antrum of the stomach which explains melena. She will begin Protonix BID and sucralfate ACHS. Aspirin has been stopped while undergoing treatment for gastric ulcers, cleared by cardiology. NSAIDs should be avoided. MARLENI test negative for H. Pylori. She should follow up with Dr. Krueger as an outpatient. (4) Acute blood loss anemia: Code(s): D62 - Acute posthemorrhagic anemia Status: Acute Assessment and Plan: Secondary to GI bleed. H&H previously within normal limits with sharp decline following onset of melena. She was transfused 1 unti pRBC on 03/21 due to steep decline in Hgb. H&H stabilized following this. No evidence of active bleeding seen on EGD and she had no further episodes of melena. Vital signs remained stable. Repeat H&H in 1 week. (5) Chest pain: Code(s): R07.9 - Chest pain, unspecified Status: Acute Assessment and Plan: Patient complained of substernal chest pressure on 03/16/20 that lasted approximately 20 minutes and was relieved after 3rd dose of nitro. At that time, stat EKG and troponin ordered. No changes in EKG from baseline and troponins flat. She had another episode 03/21 lasting 20 minutes. CP occurred at rest. Denied radiation. No diaphoresis, anxiety, or increased SOB from baseline. Echo showed pericardial effusion and pain may be related to pericarditis. No improvement of pain with leaning forward, although this is limited due to body habitus. NSAIDs contraindicated due to acute gastric ulcers. Given her cardiac history, lexiscan was considered. 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 Chest pain not felt to be consistent with ischemia. Continue nitro as needed for ches
[2020-03-22] MEDS: POTASSIUM CHLORIDE 20 MEQ TABLET PO (16:54)
[2020-03-22 16:59] LABS: Glucose Point of Care 132 (65-105)
[2020-03-22] MEDS: PERPHENAZINE 2 MG TABLET PO (20:13)
[2020-03-22] MEDS: PRAMIPEXOLE 0.5 MG TABLET 1 MG PO (20:14)
[2020-03-22 20:32] LABS: Glucose Point of Care 96 (65-105)
[2020-03-22 21:22] LABS: SARS-CoV-2 RNA PCR Negative
== END 2020-03-23 01:30 | DRG 190 ==
LOC: ANHED 21:30 → ANH2MED 22:22
PROVIDERS: Family Medicine; Internal Medicine Critical Care Medicine; Internal Medicine Gastroenterology; Physician Assistant; Admitting Provider Student in an Organized Health Care Education/Training Program; Emergency Provider Emergency Medicine; PCP Internal Medicine; Visit Provider Physician Assistant
PROC: 0DJ08ZZ Inspection of Upper Intestinal Tract, Via Natural or Artificial Opening Endoscopic (ICD-10-PCS; CPT 43235; principal; 2020-03-19 14:45)
DX: J44.1 Chronic obstructive pulmonary disease with (acute) exacerbation (principal); J96.22 Acute and chronic respiratory failure with hypercapnia; J96.21 Acute and chronic respiratory failure with hypoxia; K29.71 Gastritis, unspecified, with bleeding; K25.0 Acute gastric ulcer with hemorrhage; I31.3 Pericardial effusion (noninflammatory); N17.9 Acute kidney failure, unspecified; E87.1 Hypo-osmolality and hyponatremia; D62 Acute posthemorrhagic anemia; K50.90 Crohn's disease, unspecified, without complications; Z68.42 Body mass index [BMI] 45.0-49.9, adult; E66.01 Morbid (severe) obesity due to excess calories; R07.89 Other chest pain; Z20.828 Contact with and (suspected) exposure to other viral communicable diseases; I25.10 Atherosclerotic heart disease of native coronary artery without angina pectoris; I11.0 Hypertensive heart disease with heart failure; I50.9 Heart failure, unspecified; E11.42 Type 2 diabetes mellitus with diabetic polyneuropathy; R53.81 Other malaise; G47.33 Obstructive sleep apnea (adult) (pediatric); E78.5 Hyperlipidemia, unspecified; F41.9 Anxiety disorder, unspecified; F31.9 Bipolar disorder, unspecified; Z96.642 Presence of left artificial hip joint; I25.2 Old myocardial infarction; Z79.4 Long term (current) use of insulin; Z79.82 Long term (current) use of aspirin; Z79.899 Other long term (current) drug therapy; Z85.038 Personal history of other malignant neoplasm of large intestine; Z86.010 Personal history of colon polyps; Z86.73 Personal history of transient ischemic attack (TIA), and cerebral infarction without residual deficits; Z87.01 Personal history of pneumonia (recurrent); Z87.891 Personal history of nicotine dependence; Z88.8 Allergy status to other drugs, medicaments and biological substances; Z90.49 Acquired absence of other specified parts of digestive tract; Z95.5 Presence of coronary angioplasty implant and graft; Z98.1 Arthrodesis status; Z99.3 Dependence on wheelchair
CPT/HCPCS: 36415; 36430; 36600; 71045; 71046; 80048; 80053; 82274; 82805; 83036; 83605; 83735; 83880; 84484; 85014; 85018; 85025; 85027; 86850; 86900; 86901; 86920; 87040; 87081; 87635; 87804; 88305; 92526; 92610; 93005; 93306; 94002; 94618; 94640; 94667; 96365; 96366; 96367; 96372; 96375; 96376; 97110; 97116; 97161; 97165; 97530; 97535; 99285; A9270; C9113; C9803; G0378; J0360; J0456; J0696; J1650; J1815; J2405; J2920; J2930; J3475; J7050; J7120; J7512; P9016; U0003

== ENCOUNTER 2021-08-10 14:14 | Outpatient (CLI) | payer MEDICARE, MEDICAID, SELFPAY | END 2021-08-10 14:15 | disposition home or self-care (01) | LOC: ANHAUDIO 14:18 | PROVIDERS: PCP Internal Medicine; Visit Provider Internal Medicine | DX: H90.3 Sensorineural hearing loss, bilateral (principal) | CPT/HCPCS: 92557; 92567 ==